=== PATIENT | male | born 1975 | race Caucasian/White ===

== ENCOUNTER 2016-11-25 21:54 | Emergency (ER) | payer OTHER ==
[~2016-11-25] VITALS: Ht 165.1 cm; Wt 113.5 kg
[2016-11-25 21:59] VITALS: TEMP 36.6; Ht 165.1 cm; Wt 113.5 kg
[2016-11-25] MEDS ORDERED: ALUMINUM/MAGNESIUM SUSP 30 ML UDC PO STA (22:10)
[2016-11-25] MEDS ORDERED: LIDOCAINE HCL 2% VISC SOLN 20 ML UDC PO STA (22:10)
--- NOTE | 2016-11-25 22:22 | DIAGNOSTIC IMAGING REPORT ---
SINGLE VIEW CHEST CLINICAL HISTORY: Atypical chest pain. FINDINGS: An AP, portable, upright chest radiograph is compared to study dated 12/06/2015. The examination is degraded by portable technique, large body habitus, and patient rotation. The heart is enlarged. The pulmonary vasculature is noncongested. The lungs and pleural spaces are clear. No pneumothorax is seen. The bony thorax is grossly intact. IMPRESSION: Cardiomegaly with no acute cardiopulmonary abnormality. Electronically signed by: Josse Fritz M.D. 11/25/2016 10:21 PM Dictated Date/Time: 11/25/2016 10:20 PM
[2016-11-25 22:48] LABS: BASO % 0.2 %; BASO ABS # 0.02 K/uL (0-0.2); COMPLETE YES; EOS % 1.1 %; HEMATOCRIT 42.8 % (42-52); IG% 0.5 %; LYMPH % 6.5 %; LYMPH ABS # 0.79 K/uL (1.2-3.4); MEAN CELL VOLUME 85.6 fL (80-100); MEAN CORPUSCULAR HEMOGLOBIN 30.4 pg (25-34); MEAN CORPUSCULAR HGB CONC 35.5 g/dl (32-36); MONO % 7.8 %; NEUT % 83.9 %; PLATELET COUNT 537 K/uL (130-400); WHITE BLOOD COUNT 12.15 K/uL (4.8-10.8)
--- NOTE | 2016-11-25 23:01 | DIAGNOSTIC IMAGING REPORT ---
ULTRASOUND RIGHT UPPER QUADRANT ABDOMEN CLINICAL HISTORY: Epigastric abdominal pain. COMPARISON STUDY: Abdominal CT dated 12/06/2015. TECHNIQUE: Real-time, grayscale, and color flow sonography of the right upper quadrant of the abdomen was performed. Images are reviewed in the transverse and longitudinal planes. The examination is degraded by large body habitus. FINDINGS: Liver: The liver is top normal in size and heterogeneous in echotexture. There is no intrahepatic biliary ductal dilatation. The main portal vein is patent. Gallbladder: The gallbladder is normal in appearance. No gallstones are identified. There is no gallbladder wall thickening or pericholecystic fluid. A sonographic Tinoco's sign is reportedly absent. The common bile duct measures up to 0.4 cm in diameter. Pancreas: Not well visualized due to overlying bowel gas. Right kidney: Survey images of the right kidney demonstrate normal size and echotexture. There is no hydronephrosis. Ascites: None. IMPRESSION: 1. No acute sonographic abnormality is identified in the right upper quadrant. No gallstones are seen. 2. The pancreas was not well visualized due to overlying bowel gas. Electronically signed by: Josse Fritz M.D. 11/25/2016 10:59 PM Dictated Date/Time: 11/25/2016 10:58 PM
[2016-11-25 23:04] VITALS: BP 121/74; PULSE 68; O2SAT 98
[2016-11-25 23:09] LABS: ALT/SGPT 61 U/L (12-78); AST/SGOT 18 U/L (15-37); BLOOD UREA NITROGEN 17 mg/dl (7-18); BUN/CREATININE RATIO 18.2 (10-20); CALCIUM 8.2 mg/dl (8.5-10.1); CARBON DIOXIDE 30 mmol/L (21-32); CHLORIDE 104 mmol/L (98-107); CREATININE 0.91 mg/dl (0.60-1.40); GLUCOSE 95 mg/dl (70-99); POTASSIUM 3.6 mmol/L (3.5-5.1); SODIUM 141 mmol/L (136-145)
[2016-11-25 23:14] LABS: ALKALINE PHOSPHATASE 65 U/L (45-117)
--- NOTE | 2016-11-25 23:19 | EMERGENCY ROOM VISIT NOTE ---
ED Visit Note First contact with patient: 22:01 I have seen and examined this patient with Ramona Motley and generally agree with the treatment plan as discussed. Problem List Medical Problems: (1) C. 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 Current/Historical Medications No Active Prescriptions or Reported Meds Allergies Coded Allergies: Penicillin V (Verified Allergy, Unknown, L, 05/10/16) Vital Signs Date Time Temp Pulse Resp B/P Pulse Ox O2 Delivery O2 Flow Rate FiO2 11/25/16 23:04 68 18 121/74 98 Room Air 11/25/16 22:15 74 11/25/16 21:59 36.6 82 18 154/92 99 Room Air Laboratory Results 11/25/16 22:26 Red Blood Count 5.00, Mean Corpuscular Volume 85.6, Mean Corpuscular Hemoglobin 30.4, Mean Corpuscular Hemoglobin Concent 35.5, Mean Platelet Volume 9.0, Neutrophils (%) (Auto) 83.9, Lymphocytes (%) (Auto) 6.5, Monocytes (%) (Auto) 7.8, Eosinophils (%) (Auto) 1.1, Basophils (%) (Auto) 0.2, Neutrophils # (Auto) 10.20, Lymphocytes # (Auto) 0.79, Monocytes # (Auto) 0.95, Eosinophils # (Auto) 0.13, Basophils # (Auto) 0.02 11/25/16 22:26 Test 11/25/16 22:26 White Blood Count 12.15 K/uL (4.8-10.8) Red Blood Count 5.00 M/uL (4.7-6.1) Hemoglobin 15.2 g/dL (14.0-18.0) Hematocrit 42.8 % (42-52) Mean Corpuscular Volume 85.6 fL (80-100) Mean Corpuscular Hemoglobin 30.4 pg (25-34) Mean Corpuscular Hemoglobin Concent 35.5 g/dl (32-36) Platelet Count 537 K/uL (130-400) Mean Platelet Volume 9.0 fL (7.4-10.4) Neutrophils (%) (Auto) 83.9 % Lymphocytes (%) (Auto) 6.5 % Monocytes (%) (Auto) 7.8 % Eosinophils (%) (Auto) 1.1 % Basophils (%) (Auto) 0.2 % Neutrophils # (Auto) 10.20 K/uL (1.4-6.5) Lymphocytes # (Auto) 0.79 K/uL (1.2-3.4) Monocytes # (Auto) 0.95 K/uL (0.11-0.59) Eosinophils # (Auto) 0.13 K/uL (0-0.5) Basophils # (Auto) 0.02 K/uL (0-0.2) RDW Standard Deviation 44.9 fL (36.4-46.3) RDW Coefficient of Variation 14.4 % (11.5-14.5) Immature Granulocyte % (Auto) 0.5 % Immature Granulocyte # (Auto) 0.06 K/uL (0.00-0.02) Anion Gap 7.0 mmol/L (3-11) Est Creatinine Clear Calc Drug Dose 125.6 ml/min Estimated GFR () 121.8 Estimated GFR (Non- 105.0 BUN/Creatinine Ratio 18.2 (10-20) Calcium Level 8.2 mg/dl (8.5-10.1) Total Bilirubin 1.0 mg/dl (0.2-1) Direct Bilirubin 0.2 mg/dl (0-0.2) Aspartate Amino Transf (AST/SGOT) 18 U/L (15-37) Alanine Aminotransferase (ALT/SGPT) 61 U/L (12-78) Alkaline Phosphatase 65 U/L (45-117) Troponin I < 0.015 ng/ml (0-0.045) Total Protein 7.5 gm/dl (6.4-8.2) Albumin 4.0 gm/dl (3.4-5.0) Lipase 130 U/L (73-393) Medications Administered Medications (Trade) Dose Ordered Sig/Melisa Route Start Time Stop Time Status Last Admin Dose Admin Lidocaine HCl (Viscous Lidocaine 2% Soln) 10 ml NOW STAT PO 11/25/16 22:10 11/25/16 22:11 DC 11/25/16 22:22 10 ML Al Hydroxide/Mg Hydroxide (Maalox Susp) 30 ml NOW STAT PO 11/25/16 22:10 11/25/16 22:11 DC 11/25/16 22:21 30 ML Departure Information Prescriptions No Active Prescriptions or Reported Meds Referrals Kelly Wallis M.D. (PCP) Patient Instructions [facility]
[2016-11-25] MEDS ORDERED: PANTOprazole SOD 40 MG TAB PO STA (23:27)
--- NOTE | 2016-11-25 23:27 | EMERGENCY ROOM VISIT NOTE ---
History First contact with patient: 22:01 Chief Complaint: CHEST PAIN Stated Complaint: CHEST PAIN Nursing Triage Summary: pain in lower abd History of Present Illness The patient is a 41 year old male who presents to the Emergency Room with complaints of right upper quadrant epigastric pain has been intermittent for the past day. He describes pain as discomfort, ranging in severity currently 3 out of 10. Nothing makes it better or worse. Patient denies chest pain, dyspnea, fever, chills, nausea, vomiting, diarrhea, back pain, urinary symptoms. He is tolerate by mouth fluids and food. Review of Systems See HPI for pertinent positives & negatives. A total of 10 systems reviewed and were otherwise negative. Past Medical/Surgical History Medical Problems: (1) C. difficile colitis (2) Clostridium difficile colitis (3) Partial deafness Family History Patient reports no known family medical history. Social History Smoking Status: Never Smoker Alcohol Use: none Drug Use: none Marital Status: single Housing Status: lives with family Occupation Status: unemployed Current/Historical Medications No Active Prescriptions or Reported Meds Allergies Coded Allergies: Penicillin V (Verified Allergy, Unknown, L, 05/10/16) Physical Exam Vital Signs Date Time Temp Pulse Resp B/P Pulse Ox O2 Delivery O2 Flow Rate FiO2 11/25/16 23:04 68 18 121/74 98 Room Air 11/25/16 22:15 74 11/25/16 21:59 36.6 82 18 154/92 99 Room Air Physical Exam VITALS: Vitals are noted on the nurse's note and reviewed by myself. Vital signs stable. GENERAL: Pleasant male, in no acute distress, nondiaphoretic, well-developed well-nourished. SKIN: The skin was without rashes, erythema, edema, or bruising. There is no tenting of the skin. Capillary reflex less than 2 seconds. HEAD: Normocephalic atraumatic. EARS: External auditory canals clear, tympanic membranes pearly wayne without erythema or effusion bilaterally. EYES: Pupils equal round and reactive to light and accommodation. Conjunctivae without injection, sclerae without icterus. Extraocular movements intact. NOSE: Patent, turbinates without inflammation or discharge. MOUTH: Mucous membranes moist. Pharynx without erythema or exudate. Uvula midline. Airway patent. Tongue does not deviate. NECK: Supple without nuchal rigidity. No lymphadenopathy. No thyromegaly. Cervical spine is nontender. No JVD. HEART: Regular rate and rhythm without murmurs gallops or rubs. LUNGS: Clear to auscultation bilaterally without wheezes, rales or rhonchi. No dullness to percussion. No retractions or accessory muscle use. ABDOMEN: Positive bowel sounds x 4. Normal tympanic percussion. Soft, protuberant, obese, minimally tender to palpation epigastric region, no CVA tenderness, without masses or organomegaly. Tinoco sign negative. No guarding or rebound tenderness. MUSCULOSKELETAL: No muscle atrophy, erythema, or edema noted. NEURO: Patient was alert and oriented to person place and time. Normal sensation to light and sharp touch. No focal neurological deficits. Medical Decision & Procedures Laboratory Results 11/25/16 22:26 Red Blood Count 5.00, Mean Corpuscular Volume 85.6, Mean Corpuscular Hemoglobin 30.4, Mean Corpuscular Hemoglobin Concent 35.5, Mean Platelet Volume 9.0, Neutrophils (%) (Auto) 83.9, Lymphocytes (%) (Auto) 6.5, Monocytes (%) (Auto) 7.8, Eosinophils (%) (Auto) 1.1, Basophils (%) (Auto) 0.2, Neutrophils # (Auto) 10.20, Lymphocytes # (Auto) 0.79, Monocytes # (Auto) 0.95, Eosinophils # (Auto) 0.13, Basophils # (Auto) 0.02 11/25/16 22:26 Test 11/25/16 22:26 White Blood Count 12.15 K/uL (4.8-10.8) Red Blood Count 5.00 M/uL (4.7-6.1) Hemoglobin 15.2 g/dL (14.0-18.0) Hematocrit 42.8 % (42-52) Mean Corpuscular Volume 85.6 fL (80-100) Mean Corpuscular Hemoglobin 30.4 pg (25-34) Mean Corpuscular Hemoglobin Concent 35.5 g/dl (32-36) Platelet Count 537 K/uL (130-400) Mean Platelet Volume 9.0 fL (7.4-10.4) Neutrophils (%) (Auto) 83.9 % Lymphocytes (%) (Auto) 6.5 % Monocytes (%) (Auto) 7.8 % Eosinophils (%) (Auto) 1.1 % Basophils (%) (Auto) 0.2 % Neutrophils # (Auto) 10.20 K/uL (1.4-6.5) Lymphocytes # (Auto) 0.79 K/uL (1.2-3.4) Monocytes # (Auto) 0.95 K/uL (0.11-0.59) Eosinophils # (Auto) 0.13 K/uL (0-0.5) Basophils # (Auto) 0.02 K/uL (0-0.2) RDW Standard Deviation 44.9 fL (36.4-46.3) RDW Coefficient of Variation 14.4 % (11.5-14.5) Immature Granulocyte % (Auto) 0.5 % Immature Granulocyte # (Auto) 0.06 K/uL (0.00-0.02) Anion Gap 7.0 mmol/L (3-11) Est Creatinine Clear Calc Drug Dose 125.6 ml/min Estimated GFR () 121.8 Estimated GFR (Non- 105.0 BUN/Creatinine Ratio 18.2 (10-20) Calcium Level 8.2 mg/dl (8.5-10.1) Total Bilirubin 1.0 mg/dl (0.2-1) Direct Bilirubin 0.2 mg/dl (0-0.2) Aspartate Amino Transf (AST/SGOT) 18 U/L (15-37) Alanine Aminotransferase (ALT/SGPT) 61 U/L (12-78) Alkaline Phosphatase 65 U/L (45-117) Troponin I < 0.015 ng/ml (0-0.045) Total Protein 7.5 gm/dl (6.4-8.2) Albumin 4.0 gm/dl (3.4-5.0) Lipase 130 U/L (73-393) Medications Administered Medications (Trade) Dose Ordered Sig/Melisa Route Start Time Stop Time Status Last Admin Dose Admin Lidocaine HCl (Viscous Lidocaine 2% Soln) 10 ml NOW STAT PO 11/25/16 22:10 11/25/16 22:11 DC 11/25/16 22:22 10 ML Al Hydroxide/Mg Hydroxide (Maalox Susp) 30 ml NOW STAT PO 11/25/16 22:10 11/25/16 22:11 DC 11/25/16 22:21 30 ML ED Course Prior records/ancillary studies reviewed. Triage Nursing notes reviewed. The patient's history was concerning for abdominal pain. Differential diagnosis: Etiologies such as appendicitis, diverticulitis, PUD, biliary pathology, UTI, pancreatitis, obstruction, mesenteric ischemia, aortic pathology, infections, inflammatory bowel disease, renal colic, as well as others were entertained. Physical examination findings: As above. ER treatment provided: GI cocktail, Protonix On reassessment the patient felt better. Diagnostics interpreted by me: ECG: Normal sinus, normal intervals, no acute ST-T wave changes. Impression normal sinus rhythm interpreted by myself The labs revealed a mild leukocytosis. Negative troponin Imaging studies: Ultrasound negative for cholecystitis based radiology. Chest x-ray no acute consolidation or pneumothorax per my interpretation Exam and history seem consistent with epigastric discomfort most likely from gastritis. Patient felt better after GI cocktail. He was advised to take Protonix daily for the next 2 weeks and to follow-up family care in a few days or here in the ER sooner for chest pain, difficulty breathing, abdominal pain, worsening signs or symptoms or as needed. Patient did not have an acute abdomen on exam. He is tolerating fluids. He is well-appearing. Unremarkable workup as above. By the evaluation outlined above emergent etiologies such as appendicitis, diverticulitis, PUD, biliary pathology, UTI, pancreatitis, obstruction, mesenteric ischemia, aortic pathology, infections, inflammatory bowel disease, renal colic, as well as others were deemed relatively unlikely. The pt informed about the findings as listed above. All questions were answered and pleased with the treatment. Return instructions were outlined and the patient was discharged in stable condition. Outpatient prescription management: protonix Referral: The patient was referred back to their primary care physician for follow-up in 2 to 3 days for a recheck of the current condition. case reviewed with my Attending Medical Decision As above Impression Primary Impression: Epigastric abdominal pain Departure Information Dispostion Home / Self-Care Condition GOOD Prescriptions No Active Prescriptions or Reported Meds Referrals Kelly Wallis M.D. (PCP) Patient Instructions My [facility] Additional Instructions Protonix 40 m tablet daily for next 2 weeks. Take this on an empty stomach. Try Maalox or Zantac for breakthrough symptoms for reflux. Avoid large meals. Avoid acidic foods. Rest and drink plenty of fluids as tolerated. Continue current medications. Avoid strenuous activities and anything that worsens your pain. Resume normal activities once your symptoms resolve. Return to the ER immediately for worsening or persistent chest pain, abdominal pain, black or blood in your stools, vomiting, fevers, chest pains, difficulty breathing, worsening of your condition, or as needed. Follow up with your primary physician in 2-3 days for a recheck of your current condition.
[2016-11-25] MEDS ORDERED: PANT40TA PO (23:28)
== END 2016-11-25 23:40 | disposition home or self-care (01) ==
LOC: C.EDB 21:56 → C.EDC 23:40
DX: R10.13 Epigastric pain (principal); Z86.19 Personal history of other infectious and parasitic diseases; Z88.0 Allergy status to penicillin

== ENCOUNTER 2017-02-22 19:45 | Emergency (ER) | payer OTHER ==
[~2017-02-22] VITALS: Ht 165.1 cm; Wt 107.7 kg
[2017-02-22 19:47] VITALS: TEMP 36.7; Ht 165.1 cm; Wt 107.7 kg
[2017-02-22] MEDS ORDERED: XYLOCAINE 1%/SOD BICARB 20 ML VIAL INFIL ONE (20:15)
[2017-02-22 21:20] VITALS: BP 135/77; PULSE 83; O2SAT 96
--- NOTE | 2017-02-23 00:52 | EMERGENCY ROOM VISIT NOTE ---
History First contact with patient: 20:04 Chief Complaint: INFECTION Stated Complaint: LUMP ON L ARM Nursing Triage Summary: pt c/o lump under left upper arm History of Present Illness The patient is a 41 year old male who presents to the Emergency Room with complaints of painful lump in his left armpit. The patient states this has increased in size over the past 2-3 days. He has not had fever or chills. No injury or trauma. He does not report a history of MRSA, but does have a past history of C. difficile. Review of Systems More than 10 systems were reviewed and otherwise negative with the exception of history of present illness. Past Medical/Surgical History Medical Problems: (1) C. difficile colitis (2) Clostridium difficile colitis (3) Partial deafness Family History Patient reports no known family medical history. Social History Smoking Status: Never Smoker Alcohol Use: none Drug Use: none Marital Status: single Housing Status: lives with family Occupation Status: unemployed Current/Historical Medications No Active Prescriptions or Reported Meds Allergies Coded Allergies: Penicillin V (Verified Allergy, Unknown, L, 02/22/17) Physical Exam Vital Signs Date Time Temp Pulse Resp B/P (MAP) Pulse Ox O2 Delivery O2 Flow Rate FiO2 02/22/17 21:20 83 135/77 96 02/22/17 19:47 36.7 81 18 135/86 97 Room Air Pain Rating (0-10): 0 Physical Exam VITALS: Vitals are noted on the nurse's note and reviewed by myself. Vital signs stable. GENERAL: Well-developed, well-nourished, white male, who is in no acute distress and resting comfortably. Patient is cooperative with the examination. HEAD: Normocephalic atraumatic. HEART: Regular rate and rhythm without murmurs gallops or rubs. LUNGS: Clear to auscultation bilaterally without wheezes, rales or rhonchi. No retractions or accessory muscle use. SKIN: The skin was with a 3.0 cm diameter abscess along the proximal medial left upper extremity. This is with central fluctuance Medical Decision & Procedures Procedure I examined the patient. Verbal consent was obtained to perform the procedure. After saline and Betadine cleansing and 3 mL of 1% buffered lidocaine anesthesia , the abscess was incised with a number 15 scalpel blade. A large amount of purulent material was released with more expressed by pressure. A swab was obtained for culture. The abscess cavity was further probed with a needle pharmacy delivery driver and the deep pocket expressed. The abscess cavity was then copiously irrigated with sterile saline under pressure. The area was then packed with bacitracin soaked packing. The area was cleaned with sterile saline and dressed with bacitracin and a bulky bandage. The patient tolerated the procedure well. ED Course Physical exam and history were performed. Nursing notes and EMR were reviewed. Patient appears to have an abscess in his left armpit. The abscess was incised and drained with culture sent to the lab. The patient has a history of C. difficile that required a significant hospitalization of 30 days. Because of this the patient is very hesitant to begin antibiotics. The incision and drainage should treat his infection, and I will have him return to the ER on a short interval for a recheck. The patient was certainly asked to return sooner if he has any worsening of his symptoms, and at that time we will consider antibiotics. The patient was pleased with this plan of voice understanding. He rated his discomfort a 0/10 at the time of departure. The chart was completed utilizing [employer] Speech Voice Recognition Software. Grammatical errors, random word insertions, pronoun errors, and incomplete sentences are an occasional consequence of this system due to software limitations, ambient noise, and hardware issues. Any formal questions or concerns about the content, text, or information contained within the body of this dictation should be directly addressed to the provider for clarification. . Medical Decision Differential diagnosis: Etiologies such as cellulitis, abscess, MRSA infection, DVT, necrotizing fasciitis, dermatitis, drug eruption, as well as others were entertained.. Impression Primary Impression: Abscess of axilla, left Departure Information Dispostion Home / Self-Care Condition GOOD Prescriptions No Active Prescriptions or Reported Meds Forms HOME CARE DOCUMENTATION FORM, IMPORTANT VISIT INFORMATION Patient Instructions My [facility] Additional Instructions You were seen and evaluated today on an emergency basis only. This is not a substitute for, or an effort to provide, complete comprehensive medical care. It is not possible to recognize and treat all injuries or illnesses in a single emergency department visit. For this reason it is recommended that you followup with Emergency Department in 48-72 hours for recheck of your condition. Try to leave your packing in place. Change your wound dressing 2-3 times a day. You are welcome to return to the emergency department anytime with new, worsening, or concerning symptoms.
== END 2017-02-22 21:20 | disposition home or self-care (01) ==
LOC: C.EDB 19:46 → C.EDD 21:20
DX: L02.412 Cutaneous abscess of left axilla (principal); A04.7 Enterocolitis due to Clostridium difficile; H91.90 Unspecified hearing loss, unspecified ear

== ENCOUNTER 2017-02-25 19:52 | Emergency (ER) | payer OTHER ==
[~2017-02-25] VITALS: Ht 165.1 cm; Wt 109.3 kg
[2017-02-25 19:56] VITALS: BP 145/97; PULSE 87; TEMP 36.5; O2SAT 96; Ht 165.1 cm; Wt 109.3 kg
--- NOTE | 2017-02-25 23:03 | EMERGENCY ROOM VISIT NOTE ---
History First contact with patient: 20:21 Chief Complaint: WOUND RECHECK Stated Complaint: WOUND RECHECK Nursing Triage Summary: PT here for recheck of I and D to abscess to left armpit. area healing well, no warmth noted. slight redness around incision, PT denies pain or fever. no drainage noted History of Present Illness The patient is a 41 year old male who presents to the Emergency Room for packing removal from an abscess in the left axilla. He was here 3 days ago. The patient reports improving redness and swelling. He denies any pain at the site of infection. The patient also complains of mild lower back pain for the past 3 weeks. The pain has been intermittent. It is worse with movement and lifting. The patient has not seen his family doctor for his back. He denies any recent falls or other trauma. Currently rates his back pain a 3 out of 10. Review of Systems 10 system review was performed and was negative except for pertinent positives and negatives as indicated in history of present illness Past Medical/Surgical History Medical Problems: (1) C. difficile colitis (2) Clostridium difficile colitis (3) Partial deafness Family History Patient reports no known family medical history. Social History Smoking Status: Never Smoker Alcohol Use: none Drug Use: none Marital Status: single Housing Status: lives with family Occupation Status: unemployed Current/Historical Medications No Active Prescriptions or Reported Meds Allergies Coded Allergies: Penicillin V (Verified Allergy, Unknown, L, 02/25/17) Physical Exam Vital Signs Date Time Temp Pulse Resp B/P (MAP) Pulse Ox O2 Delivery O2 Flow Rate FiO2 02/25/17 19:56 36.5 87 19 145/97 96 Room Air Physical Exam CONSTITUTIONAL: Healthy and well nourished. Alert and oriented X 3 with positive affect. She does not appear in any acute distress. HEENT: Normocephalic, atraumatic. Pupils equal, round and reactive. NECK: Full active range of motion without discomfort. ABDOMEN: No abdominal tenderness to palpation or CVA tenderness. MUSCULOSKELETAL: Examination does not show any focal tenderness to palpation through the central lumbar spine or paraspinous muscles. No obvious spasm. The patient does have mild discomfort with range of motion. No focal tenderness through the SI joints or sciatic notches. Negative logroll. Negative sitting straight leg raise. Ankle plantar/dorsiflexion strength is 5 out of 5 and symmetric bilaterally. Pedal pulses are intact. INTEGUMENTARY: Examination shows packing within a small left lateral axillary abscess. The packing was removed without any additional purulent drainage. There is no significant underlying induration. A Band-Aid was applied. NEUROLOGIC: No focal neurologic deficits noted. Lower extremities are sensory intact. Medical Decision & Procedures ED Course Patient history and physical exam were performed. Nurse's notes were reviewed. Packing removal was removed from the patient's abscess without any recurrent drainage. The patient was instructed to return for any progressively worsening infection. Regarding the patient's back, he was encouraged to follow-up with his family doctor for further reevaluation and management. Ibuprofen or Tylenol as needed for pain. The patient voiced understanding of all discharge instructions, was happy with plan of care, and denied any current pain at the time of discharge. Medical Decision Impression Primary Impression: Encounter for wound re-check Additional Impression: Lower back pain Departure Information Dispostion Home / Self-Care Prescriptions No Active Prescriptions or Reported Meds Forms HOME CARE DOCUMENTATION FORM, IMPORTANT VISIT INFORMATION Patient Instructions [facility] Additional Instructions Keep wound clean and covered with an antibiotic ointment and dressing until it heals. Follow-up with your family doctor for further evaluation of your back pain. Ibuprofen or Tylenol if needed for additional pain relief. Problem Qualifiers Additional Impression: Lower back pain Chronicity: acute Back pain laterality: unspecified Sciatica presence: with sciatica Sciatica laterality: sciatica laterality unspecified Qualified Codes: M54.40 - Lumbago with sciatica, unspecified side
== END 2017-02-25 20:35 | disposition home or self-care (01) ==
LOC: C.EDB 19:55 → C.EDD 20:35
DX: Z01.89 Encounter for other specified special examinations (principal); L02.412 Cutaneous abscess of left axilla; M54.5 Low back pain; H91.90 Unspecified hearing loss, unspecified ear

== ENCOUNTER 2017-06-08 00:09 | Emergency (ER) | payer OTHER ==
[~2017-06-08] VITALS: Ht 165.1 cm; Wt 107.7 kg
[2017-06-08 00:15] VITALS: Ht 165.1 cm; Wt 107.7 kg
[2017-06-08 00:50] LABS: BASO % 0.6 %; BASO ABS # 0.04 K/uL (0-0.2); COMPLETE YES; HEMATOCRIT 44.5 % (42-52); IG% 0.9 %; LYMPH % 25.4 %; LYMPH ABS # 1.72 K/uL (1.2-3.4); MEAN CELL VOLUME 85.7 fL (80-100); MEAN CORPUSCULAR HEMOGLOBIN 29.5 pg (25-34); MEAN CORPUSCULAR HGB CONC 34.4 g/dl (32-36); MEAN PLATELET VOLUME 8.7 fL (7.4-10.4); MONO % 9.6 %; NEUT % 62.5 %; PLATELET COUNT 446 K/uL (130-400); RED BLOOD COUNT 5.19 M/uL (4.7-6.1); WHITE BLOOD COUNT 6.76 K/uL (4.8-10.8)
[2017-06-08 01:08] LABS: ALT/SGPT 77 U/L (12-78); AST/SGOT 20 U/L (15-37); BLOOD UREA NITROGEN 15 mg/dl (7-18); BUN/CREATININE RATIO 15.2 (10-20); CALCIUM 8.5 mg/dl (8.5-10.1); CARBON DIOXIDE 26 mmol/L (21-32); CHLORIDE 102 mmol/L (98-107); CREATININE 0.98 mg/dl (0.60-1.40); GLUCOSE 84 mg/dl (70-99); POTASSIUM 3.3 mmol/L (3.5-5.1); SODIUM 137 mmol/L (136-145)
[2017-06-08 01:13] LABS: ALKALINE PHOSPHATASE 81 U/L (45-117)
[2017-06-08] MEDS ORDERED: POTASSIUM CHLORIDE 10 MEQ TABCR PO STA (01:45)
--- NOTE | 2017-06-08 01:45 | EMERGENCY ROOM VISIT NOTE ---
History First contact with patient: 00:19 Chief Complaint: BACK PAIN Stated Complaint: BACK AND SIDE PAIN History of Present Illness The patient is a 42 year old male who presents to the Emergency Room with complaints of right upper quadrant and flank pain for the past week that has been intermittent. Pain currently 5 out of 10. Palpation makes it worse and nothing makes it better. Patient denies chest pain, dyspnea, fever, chills, nausea, vomiting, diarrhea, cold symptoms. He is tolerating by mouth fluids and food. Review of Systems See HPI for pertinent positives & negatives. A total of 10 systems reviewed and were otherwise negative. Past Medical/Surgical History Medical Problems: (1) C. difficile colitis (2) Clostridium difficile colitis (3) Partial deafness Family History Patient reports no known family medical history. Social History Smoking Status: Never Smoker Alcohol Use: none Drug Use: none Marital Status: single Housing Status: lives with family Occupation Status: unemployed Current/Historical Medications No Active Prescriptions or Reported Meds Physical Exam Vital Signs Date Time Temp Pulse Resp B/P (MAP) Pulse Ox O2 Delivery O2 Flow Rate FiO2 06/08/17 01:44 61 18 105/69 98 Room Air 06/08/17 00:36 Room Air 06/08/17 00:15 36.5 69 18 139/88 100 Room Air Physical Exam VITALS: Vitals are noted on the nurse's note and reviewed by myself. Vital signs stable. GENERAL: Pleasant male, in no acute distress, nondiaphoretic, well-developed well-nourished. SKIN: The skin was without rashes, erythema, edema, or bruising. There is no tenting of the skin. Capillary reflex less than 2 seconds. HEAD: Normocephalic atraumatic. EARS: External auditory canals clear, tympanic membranes pearly wayne without erythema or effusion bilaterally. EYES: Pupils equal round and reactive to light and accommodation. Conjunctivae without injection, sclerae without icterus. Extraocular movements intact. NOSE: Patent, turbinates without inflammation or discharge. MOUTH: Mucous membranes moist. Pharynx without erythema or exudate. Uvula midline. Airway patent. Tongue does not deviate. NECK: Supple without nuchal rigidity. No lymphadenopathy. No thyromegaly. Cervical spine is nontender. No JVD. HEART: Regular rate and rhythm without murmurs gallops or rubs. LUNGS: Clear to auscultation bilaterally without wheezes, rales or rhonchi. No dullness to percussion. No retractions or accessory muscle use. ABDOMEN: Positive bowel sounds x 4. Normal tympanic percussion. Soft, tender to palpation right upper quadrant, no CVA tenderness, without masses or organomegaly. Tinoco sign negative. No guarding or rebound tenderness. MUSCULOSKELETAL: No muscle atrophy, erythema, or edema noted. NEURO: Patient was alert and oriented to person place and time. Normal sensation to light and sharp touch. No focal neurological deficits. Medical Decision & Procedures Laboratory Results 06/08/17 00:40 Red Blood Count 5.19, Mean Corpuscular Volume 85.7, Mean Corpuscular Hemoglobin 29.5, Mean Corpuscular Hemoglobin Concent 34.4, Mean Platelet Volume 8.7, Neutrophils (%) (Auto) 62.5, Lymphocytes (%) (Auto) 25.4, Monocytes (%) (Auto) 9.6, Eosinophils (%) (Auto) 1.0, Basophils (%) (Auto) 0.6, Neutrophils # (Auto) 4.22, Lymphocytes # (Auto) 1.72, Monocytes # (Auto) 0.65, Eosinophils # (Auto) 0.07, Basophils # (Auto) 0.04 06/08/17 00:40 Test 06/08/17 00:40 White Blood Count 6.76 K/uL (4.8-10.8) Red Blood Count 5.19 M/uL (4.7-6.1) Hemoglobin 15.3 g/dL (14.0-18.0) Hematocrit 44.5 % (42-52) Mean Corpuscular Volume 85.7 fL (80-100) Mean Corpuscular Hemoglobin 29.5 pg (25-34) Mean Corpuscular Hemoglobin Concent 34.4 g/dl (32-36) Platelet Count 446 K/uL (130-400) Mean Platelet Volume 8.7 fL (7.4-10.4) Neutrophils (%) (Auto) 62.5 % Lymphocytes (%) (Auto) 25.4 % Monocytes (%) (Auto) 9.6 % Eosinophils (%) (Auto) 1.0 % Basophils (%) (Auto) 0.6 % Neutrophils # (Auto) 4.22 K/uL (1.4-6.5) Lymphocytes # (Auto) 1.72 K/uL (1.2-3.4) Monocytes # (Auto) 0.65 K/uL (0.11-0.59) Eosinophils # (Auto) 0.07 K/uL (0-0.5) Basophils # (Auto) 0.04 K/uL (0-0.2) RDW Standard Deviation 44.6 fL (36.4-46.3) RDW Coefficient of Variation 14.2 % (11.5-14.5) Immature Granulocyte % (Auto) 0.9 % Immature Granulocyte # (Auto) 0.06 K/uL (0.00-0.02) Anion Gap 9.0 mmol/L (3-11) Est Creatinine Clear Calc Drug Dose 112.2 ml/min Estimated GFR () 110.5 Estimated GFR (Non- 95.4 BUN/Creatinine Ratio 15.2 (10-20) Calcium Level 8.5 mg/dl (8.5-10.1) Total Bilirubin 0.6 mg/dl (0.2-1) Direct Bilirubin 0.1 mg/dl (0-0.2) Aspartate Amino Transf (AST/SGOT) 20 U/L (15-37) Alanine Aminotransferase (ALT/SGPT) 77 U/L (12-78) Alkaline Phosphatase 81 U/L (45-117) Troponin I < 0.015 ng/ml (0-0.045) Total Protein 8.2 gm/dl (6.4-8.2) Albumin 4.2 gm/dl (3.4-5.0) Lipase 157 U/L (73-393) ED Course Prior records/ancillary studies reviewed. Triage Nursing notes reviewed. The patient's history was concerning for abdominal pain. Differential diagnosis: Etiologies such as appendicitis, diverticulitis, PUD, biliary pathology, UTI, pancreatitis, obstruction, mesenteric ischemia, aortic pathology, infections, inflammatory bowel disease, renal colic, as well as others were entertained. Physical examination findings: As above. ER treatment provided: By mouth fluids On reassessment the patient felt better. Diagnostics interpreted by me: ECG: Normal sinus, normal intervals, no acute ST-T wave changes. Impression normal sinus rhythm interpreted by myself The labs revealed stable H&H, no leukocytosis. Negative troponin Imaging studies: Ultrasound negative for cholecystitis per radiology Exam and history seem consistent with abdominal pain that could be related to his gallbladder. Patient was neurovascular and neurologically intact. Unremarkable workup as above. He was advised to low-fat diet and follow-up family care in a few days or here in the ER sooner for abdominal pain, fevers, vomiting, worsening signs or symptoms or as needed. By the evaluation outlined above emergent etiologies such as appendicitis, diverticulitis, PUD, UTI, pancreatitis, obstruction, mesenteric ischemia, aortic pathology, infections, inflammatory bowel disease, renal colic, as well as others were deemed relatively unlikely. The pt informed about the findings as listed above. All questions were answered and pleased with the treatment. Return instructions were outlined and the patient was discharged in stable condition. Case reviewed with my attending Referral: The patient was referred back to their primary care physician for follow-up in 2 to 3 days for a recheck of the current condition. Medical Decision As above Medication Reconcilliation Current Medication List: was personally reviewed by me Blood Pressure Screening Patient's blood pressure: Normal blood pressure Impression Primary Impression: Right upper quadrant abdominal pain Additional Impression: Hypokalemia Departure Information Dispostion Home / Self-Care Condition GOOD Prescriptions No Active Prescriptions or Reported Meds Referrals Kelly Wallis M.D. (PCP) Patient Instructions My [facility] Additional Instructions Ibuprofen(Motrin, Advil) may be used for fever or pain. Use 600mg every six hours as needed. Take with food. Avoid using more than 2400mg in a 24 hour period. Do not use 2400mg per day for more than three consecutive days without physician direction. Prolonged inappropriate use can lead to stomach upset or ulcers. (AND/OR) Acetaminophen(Tylenol) may be used for fever or pain. Use 1000mg every six hours as needed. Avoid using more than 3000mg in a 24 hour period. Recommend outpatient HIDA scan with family care DrRon for further workup on your gallbladder. Rest and drink plenty of fluids as tolerated. Slow sips of water or sports drinks are recommended instead of large amounts all at once. Recommend low-fat diet. Continue current medications. Return to the ER immediately for worsening or persistent abdominal pain, vomiting, fevers, chest pains, difficulty breathing, black or bloody stools, worsening of your condition, or as needed. Follow up with your primary physician in 24 hours for a recheck of your current condition. Problem Qualifiers
[2017-06-08 01:56] VITALS: BP 105/69; PULSE 61; TEMP 36.5; O2SAT 98
--- NOTE | 2017-06-08 07:00 | EMERGENCY ROOM VISIT NOTE ---
ED Visit Note First contact with patient: 00:19 I have personally evaluated and examined this patient. I agree with assessment and plan of Ramona Motley PA-C. Patient with vague RUQ abdominal pain which is completely benign by exam and he admits ongoing for quite some time. Discussed need to talk to his doctor about this but with normal labs/us I feel it is reasonable for discharge, especially given ongoing for some time.
--- NOTE | 2017-06-08 07:51 | DIAGNOSTIC IMAGING REPORT ---
GALLBLADDER-ABD LIMITED CLINICAL HISTORY: rug pain pain. Nausea. TECHNIQUE: Ultrasound COMPARISON STUDY: 11/25/2016 FINDINGS: Heterogeneous liver suggesting fatty infiltration. Normal gallbladder. Poor visibility of the pancreas normal caliber bile duct. Common bile duct 3 mm. Right kidney is negative for hydronephrosis. IMPRESSION: Fatty infiltration of liver. Otherwise negative study. The above report was generated using voice recognition software. It may contain grammatical, syntax or spelling errors. Electronically signed by: Rohan Patton M.D. 06/08/2017 7:49 AM Dictated Date/Time: 06/08/2017 7:47 AM
== END 2017-06-08 01:56 | disposition home or self-care (01) ==
LOC: C.EDB 00:10 → C.EDC 01:56
DX: R10.11 Right upper quadrant pain (principal); M54.9 Dorsalgia, unspecified; E87.6 Hypokalemia; H91.90 Unspecified hearing loss, unspecified ear

== ENCOUNTER 2017-06-21 16:33 | Emergency (ER) | payer OTHER ==
[~2017-06-21] VITALS: Ht 165.1 cm; Wt 109.4 kg
[2017-06-21 16:39] VITALS: TEMP 36.5; Ht 165.1 cm; Wt 109.4 kg
--- NOTE | 2017-06-21 16:58 | EMERGENCY ROOM VISIT NOTE ---
History Report prepared by Lisseth: Jared Aceves Under the Supervision of: Adria CourtneyO. First contact with patient: 16:46 Chief Complaint: ABDOMINAL PAIN Stated Complaint: PAINS IN L SIDE BACK TO STOMACH GALL BLADDER History of Present Illness The patient is a 42 year old male who presents to the Emergency Room with complaints of intermittent right-sided abdominal pain that began 1 month ago. He received a workup at this hospital on the 08 of June with negative findings. He followed up with his PCP, but his pain has been worsening, so he presented back to the ER. He is also having back pain and pain to his right side as well. He denies any past medical history or any family history of kidney stones. He denies any nausea, vomiting, melena, hematochezia, or abnormal urinary symptoms. Sleeping on his left side makes his pain better. However, nothing makes it worse. He notes that recently he has been experiencing chills and hot flashes, without any fevers. He denies any history of ulcers, reflux, or any other GI problems. He does note that he had C. Diff in the past. Source of History: patient Onset: 1 month ago Position: abdomen (RUQ) Symptom Intensity: moderate Quality: sharp Timing: intermittent Modifying Factors (Relieving): rest (on left side) Associated Symptoms: + back pain, No nausea, No vomiting, No melena, No hematochezia, No diarrhea, No urinary symptoms Review of Systems See HPI for pertinent positives & negatives. A total of 10 systems reviewed and were otherwise negative. Past Medical & Surgical Medical Problems: (1) C. difficile colitis (2) Clostridium difficile colitis (3) Partial deafness Family History Patient reports no known family medical history. Social History Smoking Status: Never Smoker Alcohol Use: none Drug Use: none Marital Status: single Housing Status: lives with family Occupation Status: unemployed Current/Historical Medications No Active Prescriptions or Reported Meds Allergies Coded Allergies: Penicillin V (Verified Allergy, Unknown, L, 06/08/17) Uncoded Allergies: ANTIBIOTIC (Allergy, Unknown, UNKNOWN, 06/21/17) PT FAMILY SAID HE CAN'T TAKE ANTIBIOTIC BECAUSE HE HAS C. DIFF Physical Exam Vital Signs Date Time Temp Pulse Resp B/P (MAP) Pulse Ox O2 Delivery O2 Flow Rate FiO2 06/21/17 21:00 60 20 110/71 99 Room Air 06/21/17 19:39 60 20 125/76 100 Room Air 06/21/17 16:39 36.5 68 18 127/84 100 Room Air Physical Exam GENERAL: alert, well appearing, well nourished, no distress, non-toxic. Developmental delay with a child-like affect. EYE EXAM: normal conjunctiva OROPHARYNX: no exudate, no erythema, lips, buccal mucosa, and tongue normal and mucous membranes are moist NECK: supple, no nuchal rigidity, no adenopathy, non-tender LUNGS: Clear to auscultation. Normal chest wall mechanics HEART: no murmurs, S1 normal and S2 normal ABDOMEN: abdomen soft, central and right sided tenderness to palpation, normo- active bowel sounds, no masses, no rebound or guarding. BACK: Back is symmetrical on inspection and there is no deformity, no midline tenderness, no CVA tenderness. Pain to the right mid back. SKIN: no rashes and no bruising UPPER EXTREMITIES: upper extremities are grossly normal. LOWER EXTREMITIES: No pitting edema. NEURO EXAM: Normal sensorium, cranial nerves II-XII grossly intact, normal speech, no gross weakness of arms, no gross weakness of legs. Medical Decision & Procedures ER Provider Diagnostic Interpretation: Radiology results have been interpreted by the radiologist and reviewed by me. ULTRASOUND RIGHT UPPER QUADRANT ABDOMEN CLINICAL HISTORY: Right upper quadrant abdominal pain. COMPARISON STUDY: Abdominal ultrasound dated 06/08/2017. Abdominal CT dated 12/06/2015. TECHNIQUE: Real-time, grayscale, and color flow sonography of the right upper quadrant of the abdomen was performed. Images are reviewed in the transverse and longitudinal planes. FINDINGS: Liver: The liver is mildly enlarged measuring 18.5 cm in length. The liver demonstrates heterogeneously increased echotexture consistent with steatosis. Mild nodularity of the surface contour suggests early change of cirrhosis. There is no intrahepatic biliary ductal dilatation. The main portal vein is patent. Gallbladder: The gallbladder is contracted and otherwise normal in appearance. No gallstones are identified. There is no gallbladder wall thickening or pericholecystic fluid. A sonographic Tinoco's sign is reportedly absent. The common bile duct measures up to 0.6 cm in diameter. Pancreas: Visualized portions of the pancreatic head and body are normal in appearance. The splenic vein is patent. Right kidney: Survey images of the right kidney demonstrate normal size and echotexture. There is no hydronephrosis. Ascites: None. IMPRESSION: 1. No acute sonographic abnormality is identified in the right upper quadrant. No gallstones are seen. 2. The liver is enlarged and steatotic. 3. Mild nodularity of the hepatic surface contour suggests early change of cirrhosis. Electronically signed by: Josse Fritz M.D. 06/21/2017 8:27 PM Dictated Date/Time: 06/21/2017 8:24 PM Laboratory Results 06/21/17 17:10 Red Blood Count 5.15, Mean Corpuscular Volume 87.4, Mean Corpuscular Hemoglobin 29.1, Mean Corpuscular Hemoglobin Concent 33.3, Mean Platelet Volume 9.2, Neutrophils (%) (Auto) 68.8, Lymphocytes (%) (Auto) 18.6, Monocytes (%) (Auto) 9.5, Eosinophils (%) (Auto) 0.9, Basophils (%) (Auto) 0.6, Neutrophils # (Auto) 4.76, Lymphocytes # (Auto) 1.29, Monocytes # (Auto) 0.66, Eosinophils # (Auto) 0.06, Basophils # (Auto) 0.04 06/21/17 17:10 Test 06/21/17 17:10 06/21/17 18:00 White Blood Count 6.92 K/uL (4.8-10.8) Red Blood Count 5.15 M/uL (4.7-6.1) Hemoglobin 15.0 g/dL (14.0-18.0) Hematocrit 45.0 % (42-52) Mean Corpuscular Volume 87.4 fL (80-100) Mean Corpuscular Hemoglobin 29.1 pg (25-34) Mean Corpuscular Hemoglobin Concent 33.3 g/dl (32-36) Platelet Count 535 K/uL (130-400) Mean Platelet Volume 9.2 fL (7.4-10.4) Neutrophils (%) (Auto) 68.8 % Lymphocytes (%) (Auto) 18.6 % Monocytes (%) (Auto) 9.5 % Eosinophils (%) (Auto) 0.9 % Basophils (%) (Auto) 0.6 % Neutrophils # (Auto) 4.76 K/uL (1.4-6.5) Lymphocytes # (Auto) 1.29 K/uL (1.2-3.4) Monocytes # (Auto) 0.66 K/uL (0.11-0.59) Eosinophils # (Auto) 0.06 K/uL (0-0.5) Basophils # (Auto) 0.04 K/uL (0-0.2) RDW Standard Deviation 45.9 fL (36.4-46.3) RDW Coefficient of Variation 14.3 % (11.5-14.5) Immature Granulocyte % (Auto) 1.6 % Immature Granulocyte # (Auto) 0.11 K/uL (0.00-0.02) Anion Gap 6.0 mmol/L (3-11) Est Creatinine Clear Calc Drug Dose 121.9 ml/min Estimated GFR () 120.9 Estimated GFR (Non- 104.3 BUN/Creatinine Ratio 19.8 (10-20) Lactic Acid Level 0.8 mmol/L (0.4-2.0) Calcium Level 8.6 mg/dl (8.5-10.1) Total Bilirubin 0.4 mg/dl (0.2-1) Aspartate Amino Transf (AST/SGOT) 43 U/L (15-37) Alanine Aminotransferase (ALT/SGPT) 109 U/L (12-78) Alkaline Phosphatase 115 U/L (45-117) Troponin I < 0.015 ng/ml (0-0.045) Total Protein 8.0 gm/dl (6.4-8.2) Albumin 3.8 gm/dl (3.4-5.0) Globulin 4.2 gm/dl (2.5-4.0) Albumin/Globulin Ratio 0.9 (0.9-2) Lipase 344 U/L (73-393) Urine Color YELLOW Urine Appearance CLEAR (CLEAR) Urine pH 8.0 (4.5-7.5) Urine Specific [place] 1.020 (1.000-1.030) Urine Protein NEG (NEG) Urine Glucose (UA) NEG (NEG) Urine Ketones NEG (NEG) Urine Occult Blood NEG (NEG) Urine Nitrite NEG (NEG) Urine Bilirubin NEG (NEG) Urine Urobilinogen NEG (NEG) Urine Leukocyte Esterase NEG (NEG) Laboratory results per my review. Medications Administered Medications (Trade) Dose Ordered Sig/Melisa Route Start Time Stop Time Status Last Admin Dose Admin Tramadol HCl (Ultram Home Pack) 1 homepack UD ONCE PO 06/21/17 21:15 06/21/17 21:16 DC 06/21/17 21:19 1 HOMEPACK ECG Indication: abdominal pain Rate (beats per minute): 57 Rhythm: sinus bradycardia Findings: no acute ischemic change, no ectopy, other (Normal intervals, normal axis) ED Course 1645: The patient was evaluated in room B9. A complete history and physical exam was performed. 2034: I updated the patient on his results. The repeat abdominal exam was unchanged. 2114: Tramadol HCl 1 homepack PO 2129: Upon reevaluation, the patient is feeling better. I discussed the findings and the treatment plan with the patient. He verbalizes agreement and understanding. He was discharged home. Medical Decision Differential diagnoses includes but is not limited to gastritis, peptic ulcer disease, GERD, gallbladder disease, pancreatitis, small bowel obstruction, acute coronary syndrome, pericarditis, ischemic bowel, irritable bowel disease, irritable bowel syndrome, appendicitis, diverticulitis, malignancy, hernia, urinary tract infection, torsion, perforation, trauma, infectious. Discussed with patient possibly biliary colic versus other GI etiology including gastritis/peptic ulcer disease/duodenitis. Doubt perforation, mesenteric ischemia, bowel obstruction, volvulus. Mild elevation of transaminases compared to prior. No evidence of bacteremia/sepsis, doubt ascending cholangitis, no evidence of acute obstructive pathology. Doubt renal colic, pyelonephritis. Patient well-appearing here with stable vital signs. He and family at bedside aware of all results and agreeable with plan. Patient to continue outpatient nuclear testing as previously scheduled. Discussed diet , hydration, use of pain medications, symptoms to watch and return for, they verbalized understanding and were agreeable with plan. Medication Reconcilliation Current Medication List: was personally reviewed by me Blood Pressure Screening Patient's blood pressure: Normal blood pressure Blood pressure disposition: Did not require urgent referral Impression Primary Impression: Abdominal pain Additional Impression: Elevated transaminase level Scribe Attestation The scribe's documentation has been prepared under my direction and personally reviewed by me in its entirety. I confirm that the note above accurately reflects all work, treatment, procedures, and medical decision making performed by me. Departure Information Dispostion Home / Self-Care Prescriptions No Active Prescriptions or Reported Meds Referrals Kelly Wallis M.D. (PCP) Forms Call Back Authorization, HOME CARE DOCUMENTATION FORM, IMPORTANT VISIT INFORMATION Patient Instructions Abdominal Pain - [facility], My [facility] Additional Instructions Please keep your appointment to have your additional gallbladder testing done as scheduled. Please avoid any fried or fatty foods in the meantime as this can trigger a gallbladder attack. If you develop any worsening pain, vomiting, fevers, noticed a change in your bowel movements, develop chest pain or trouble breathing, noticed a change in your urine, or you have any other new concerns, please return to the emergency room. You may use the pain medication as provided, do not take it and drive. Problem Qualifiers Primary Impression: Abdominal pain Abdominal location: right upper quadrant Qualified Codes: R10.11 - Right upper quadrant pain
[2017-06-21 17:26] LABS: BASO % 0.6 %; BASO ABS # 0.04 K/uL (0-0.2); COMPLETE YES; EOS % 0.9 %; IG% 1.6 %; LYMPH % 18.6 %; LYMPH ABS # 1.29 K/uL (1.2-3.4); MEAN CELL VOLUME 87.4 fL (80-100); MEAN CORPUSCULAR HEMOGLOBIN 29.1 pg (25-34); MEAN CORPUSCULAR HGB CONC 33.3 g/dl (32-36); MEAN PLATELET VOLUME 9.2 fL (7.4-10.4); MONO % 9.5 %; NEUT % 68.8 %; PLATELET COUNT 535 K/uL (130-400); RED BLOOD COUNT 5.15 M/uL (4.7-6.1); WHITE BLOOD COUNT 6.92 K/uL (4.8-10.8)
[2017-06-21 17:46] LABS: ALT/SGPT 109 U/L (12-78); AST/SGOT 43 U/L (15-37); BLOOD UREA NITROGEN 18 mg/dl (7-18); BUN/CREATININE RATIO 19.8 (10-20); CALCIUM 8.6 mg/dl (8.5-10.1); CARBON DIOXIDE 27 mmol/L (21-32); CHLORIDE 105 mmol/L (98-107); CREATININE 0.91 mg/dl (0.60-1.40); GLUCOSE 93 mg/dl (70-99); POTASSIUM 3.8 mmol/L (3.5-5.1); SODIUM 138 mmol/L (136-145)
[2017-06-21 17:51] LABS: ALB/GLOB RATIO 0.9 (0.9-2); ALKALINE PHOSPHATASE 115 U/L (45-117)
[2017-06-21 18:45] LABS: URINE APPEARANCE CLEAR (CLEAR); URINE BILIRUBIN NEG (NEG); URINE COLOR YELLOW; URINE NITRITE NEG (NEG); UROBILINOGEN NEG (NEG); ZZUR CULT IF INDIC CLEAN CATCH NO
[2017-06-21 18:47] LABS: MANUAL MICROSCOPIC REQUIRED? NO; REVIEW REQ? NO
--- NOTE | 2017-06-21 20:28 | DIAGNOSTIC IMAGING REPORT ---
ULTRASOUND RIGHT UPPER QUADRANT ABDOMEN CLINICAL HISTORY: Right upper quadrant abdominal pain. COMPARISON STUDY: Abdominal ultrasound dated 06/08/2017. Abdominal CT dated 12/06/2015. TECHNIQUE: Real-time, grayscale, and color flow sonography of the right upper quadrant of the abdomen was performed. Images are reviewed in the transverse and longitudinal planes. FINDINGS: Liver: The liver is mildly enlarged measuring 18.5 cm in length. The liver demonstrates heterogeneously increased echotexture consistent with steatosis. Mild nodularity of the surface contour suggests early change of cirrhosis. There is no intrahepatic biliary ductal dilatation. The main portal vein is patent. Gallbladder: The gallbladder is contracted and otherwise normal in appearance. No gallstones are identified. There is no gallbladder wall thickening or pericholecystic fluid. A sonographic Tinoco's sign is reportedly absent. The common bile duct measures up to 0.6 cm in diameter. Pancreas: Visualized portions of the pancreatic head and body are normal in appearance. The splenic vein is patent. Right kidney: Survey images of the right kidney demonstrate normal size and echotexture. There is no hydronephrosis. Ascites: None. IMPRESSION: 1. No acute sonographic abnormality is identified in the right upper quadrant. No gallstones are seen. 2. The liver is enlarged and steatotic. 3. Mild nodularity of the hepatic surface contour suggests early change of cirrhosis. Electronically signed by: Josse Fritz M.D. 06/21/2017 8:27 PM Dictated Date/Time: 06/21/2017 8:24 PM
[2017-06-21 21:00] VITALS: BP 110/71; PULSE 60; O2SAT 99
[2017-06-21] MEDS ORDERED: TRAMADOL HCL 50 MG HOME PACK PO ONE (21:15)
== END 2017-06-21 21:23 | disposition home or self-care (01) ==
LOC: C.EDB 16:34
DX: R10.9 Unspecified abdominal pain (principal); R74.0 Nonspecific elevation of levels of transaminase and lactic acid dehydrogenase [LDH]; R00.1 Bradycardia, unspecified; Z86.19 Personal history of other infectious and parasitic diseases; Z88.0 Allergy status to penicillin

== ENCOUNTER → 2017-06-27 | Outpatient (CLI) | payer OTHER ==
[~2017-06-27] MED LIST: SINCALIDE IV ONE; SODIUM CHLORIDE 0.9% IV ONE
--- NOTE | 2017-06-27 12:37 | DIAGNOSTIC IMAGING REPORT ---
NUCLEAR MEDICINE HEPATOBILIARY SCAN WITH EJECTION FRACTION HISTORY: Right upper quadrant PAIN; WORSE WITH EATING COMPARISON: Abdominal ultrasound 06/21/2017. TECHNIQUE: Immediately following the intravenous administration of 5.8 mCi Tc-99m Choletec, dynamic anterior abdominal imaging pre/post 2.15 mcg of Kinevac was performed. FINDINGS: Uniform hepatic tracer accumulation is shown. Prompt intrahepatic biliary excretion is seen. The gallbladder, common bile duct are visualized at 20 minutes. Slight delayed visualization of the small bowel at 70 minutes. However, this could be a normal variant. The gall bladder ejection fraction following administration of Kinevac was 90% (normal >35%). IMPRESSION: 1. No evidence for cystic duct obstruction. 2. Gallbladder ejection fraction calculated to be 90 %. Electronically signed by: Aarno Hinton M.D. 06/27/2017 12:36 PM Dictated Date/Time: 06/27/2017 12:34 PM
== END | disposition home or self-care (01) ==
LOC: C.NUCL 09:39
PROVIDERS: ATTEND Family Medicine
DX: R10.11 Right upper quadrant pain (principal)

== ENCOUNTER → 2017-07-27 | Outpatient (CLI) | payer OTHER ==
[2017-07-27 15:08] LABS: TOTAL IRON BINDING CAPACITY 368 mcg/dl (250-450)
[2017-07-31 14:24] LABS: ALPHA-1-ANTITRYPSIN TC 67710E 130 MG/DL (83-199)
== END | disposition home or self-care (01) ==
LOC: C.LAB 13:04
PROVIDERS: ATTEND Internal Medicine Gastroenterology
DX: K74.0 Hepatic fibrosis (principal)

== ENCOUNTER → 2017-08-03 | Day surgery (SDC) | payer OTHER ==
[2017-07-31 14:46] VITALS: Ht 165.1 cm; Wt 109.1 kg
[~2017-08-03] VITALS: Ht 165.1 cm; Wt 109.1 kg
[~2017-08-03] MED LIST changes: +ACET-1256 PO; +LIDOCAINE HCL 2% 2 ML VIAL (20MG/ML) ONE; +MIDAZOLAM HCL 1 MG/ML 2ML VIAL ONE; +NAPR1TAB9 PO; +OMEP20CA59 PO; +ONDANSETRON INJ 2 MG/ML 2 ML VIAL ONE; +PROPOFOL IV EMULSION 10 MG/ML 20 ML VIAL IV ONE; +RANI150T3 PO; -SINCALIDE IV ONE; +SODIUM CHLORIDE 0.9% 500ML 500 ML IV ONE; -SODIUM CHLORIDE 0.9% IV ONE
[2017-08-03 13:14] VITALS: TEMP 36.6
--- NOTE | 2017-08-03 14:03 | Endo History and Physical ---
History & Physical Date of Service: Aug 03, 2017. Chief Complaint: RUQ pian Referring Physician: Dr. Kelly Wallis History of Present Illness RUQ pain Past Surgical History Hx Cardiac Surgery: No Hx Internal Defibrillator: No Hx Pacemaker: No Hx Abdominal Surgery: No Hx of Implantable Prosthesis: No Hx Post-Op Nausea and Vomiting: No Hx Cancer Surgery: No Hx Thoracic Surgery: No Hx Orthopedic: No Hx Urinary Tract Surgery: No Family History None Social History Smoking Status: Never Smoker Hx Substance Use: No Hx Alcohol Use: No Allergies Coded Allergies: Penicillin V (Verified Allergy, Unknown, RASH, 07/31/17) Uncoded Allergies: ANTIBIOTIC (Allergy, Unknown, C-DIFF, 07/31/17) Current Medications Reported Home Medications Medications Dose Route/Sig Max Daily Dose Days Date Category No Active Prescriptions or Reported Medications Rx Vital Signs Weight (Kilograms): 109.09 Height (Feet): 5 Height (Inches): 5 Date Time Temp Pulse Resp B/P (MAP) Pulse Ox O2 Delivery O2 Flow Rate FiO2 08/03/17 13:14 36.6 55 20 121/73 (89) 98 Room Air Physical Exam General Appearance: WD/WN, no apparent distress Respiratory/Chest: Auscultation: breath sounds normal Cardiovascular: Heart Auscultation: RRR Abdomen: Bowel Sounds: normal Inspection & Palpation: soft, non-distended, no tenderness, guarding & rebound Assessment and Plan EGD today
--- NOTE | 2017-08-03 14:35 | GI REPORT ---
Procedure Date: 08/03/2017 2:02 PM Procedure: Upper GI endoscopy Indications: Abdominal pain in the right upper quadrant Medicines: Propofol per Anesthesia Complications: No immediate complications. Estimated blood loss: None. Estimated Blood Loss: Estimated blood loss: none. Procedure: Pre-Anesthesia Assessment: - Prior to the procedure, a History and Physical was performed, and patient medications and allergies were reviewed. The patient's tolerance of previous anesthesia was also reviewed. The risks and benefits of the procedure and the sedation options and risks were discussed with the patient. All questions were answered, and informed consent was obtained. Prior Anticoagulants: The patient has taken no previous anticoagulant or antiplatelet agents. ASA Grade Assessment: II - A patient with mild systemic disease. After reviewing the risks and benefits, the patient was deemed in satisfactory condition to undergo the procedure. After obtaining informed consent, the endoscope was passed under direct vision. Throughout the procedure, the patient's blood pressure, pulse, and oxygen saturations were monitored continuously. The scope was introduced through the mouth, and advanced to the second part of duodenum. The upper GI endoscopy was accomplished without difficulty. The patient tolerated the procedure well. Findings: The examined esophagus was normal. A 1 cm hiatus hernia was found. The proximal extent of the gastric folds (end of tubular esophagus) was 43 cm from the incisors. The hiatal narrowing was 44 cm from the incisors. The Z-line was 43 cm from the incisors. The entire examined stomach was normal. The examined duodenum was normal. Retained gastric contents are not identified on this exam. The cardia and gastric fundus were normal on retroflexion. Impression: - Normal esophagus. - 1 cm hiatus hernia. - Normal stomach. - Normal examined duodenum. - No specimens collected. Recommendation: - Discharge patient to home (ambulatory). - Resume regular diet. - Continue present medications. - Return to GI clinic as previously scheduled. - Return to referring physician as previously scheduled. MD Aditya Whittington MD 08/03/2017 2:35:05 PM This report has been signed electronically. Note Initiated On: 08/03/2017 2:02 PM I attest to the content of the Intraoperative Record and orders documented therein, exceptions below
--- NOTE | 2017-08-03 14:38 | Discharge Instructions ---
Endoscopy Patient Instructions Date / Procedure(s) Performed Aug 03, 2017. EGD Allergy Information Coded Allergies: Penicillin V (Verified Allergy, Unknown, RASH, 07/31/17) Uncoded Allergies: ANTIBIOTIC (Allergy, Unknown, C-DIFF, 07/31/17) Discharge Date / Findings Aug 03, 2017. HH otherwise normal Medication Instructions Restart Stopped Medication(s): Reported Home Medications Medications Dose Route/Sig Max Daily Dose Days Date Category No Active Prescriptions or Reported Medications Rx Reported Home Medications Medications Dose Route/Sig Max Daily Dose Days Date Category No Active Prescriptions or Reported Medications Rx Provider Instructions Activity Restrictions - No exercising or heavy lifting for 24 hours. - Do not drink alcohol the day of the procedure. - Do not drive a car or operate machinery until the day after the procedure. - Do not make any important decisions or sign important papers in 24 hours after the procedure. Following Day: - Return to full activity which may include returning to work/school. Diet Start your diet with liquids and light foods (jello, soup, juice, toast). Then eat your usual diet if not nauseated. Treatment For Common After Affects For mild abdominal pain, bloating, or excessive gas: - Rest - Eat lightly - Lie on right side Follow-Up Information Follow-up with Dr. Kelly Wallis as scheduled Anesthesia Information What You Should Know You have had a procedure that required some medicine to reduce anxiety and discomfort. This treatment is called moderate sedation. After receiving the treatment, you may be sleepy, but you will be able to breathe on your own. The effects of the treatment may last for several hours. Follow these instructions along with Activity/Diet recommendations noted above: * Do NOT do anything where dizziness or clumsiness would be dangerous. * Rest quietly at home today, then you can be up and about tomorrow. * Have a responsible person stay with you the rest of today. * You may have had an I.V. today. If so, you may take the dressing off later today. Recommendations Call your doctor if: * Trouble breathing * Continuous vomiting for more than 24 hours * Temperature above 101 degrees * Severe abdominal pain or bloating * Pain not relieved by pain medicine ordered * There is increased drainage or redness from any incision * A large amount of rectal bleeding greater than 2-3 tablespoons. (If you had a polyp/s removed or have hemorrhoids, a small amount of blood - from the rectum is to be expected.) * You have any unanswered questions or concerns. IN THE EVENT OF A SERIOUS EMERGENCY, GO TO THE NEAREST EMERGENCY ROOM Your discharge instructions were prepared by provider Aditya Del Toro. Patient Instructions Signature Page Randy Snow Patient (or Guardian) Signature/Date: I have read and understand the instructions given to me by my caregivers. Caregiver/RN/Doctor Signature/Date: The above-named patient and/or guardian has received patient instructions on this date. + Original Patient Signature Page (only) stays with chart. Please make copy for patient.
--- NOTE | 2017-08-03 14:43 | Anesthesiology Progress Note ---
Anesthesia Post Op Note Date & Time Aug 03, 2017 at 14:43 Vital Signs Vital Signs Past 12 Hours Date Time Temp Pulse Resp B/P (MAP) Pulse Ox O2 Delivery O2 Flow Rate FiO2 08/03/17 14:35 56 16 116/80 (92) 99 Room Air 08/03/17 13:14 36.6 55 20 121/73 (89) 98 Room Air Notes Mental Status: alert / awake / arousable, participated in evaluation Pt Amnestic to Procedure: Yes Nausea / Vomiting: adequately controlled Pain: adequately controlled Airway Patency, RR, SpO2: stable & adequate BP & HR: stable & adequate Hydration State: stable & adequate Anesthetic Complications: no major complications apparent
[2017-08-03 15:02] VITALS: PULSE 48; O2SAT 100
[2017-08-03 15:03] VITALS: BP 107/71
== END | disposition home or self-care (01) ==
LOC: C.GI 13:00
PROVIDERS: ATTEND Internal Medicine Gastroenterology
DX: K44.9 Diaphragmatic hernia without obstruction or gangrene (principal); E66.9 Obesity, unspecified; Z68.41 Body mass index [BMI] 40.0-44.9, adult; R10.11 Right upper quadrant pain

== ENCOUNTER 2017-08-26 17:59 | Emergency (ER) | payer OTHER ==
[~2017-08-26] VITALS: Ht 165.1 cm; Wt 110.0 kg
[2017-08-26 18:04] VITALS: TEMP 36.4; Ht 165.1 cm; Wt 110.0 kg
[2017-08-26] MEDS ORDERED: SODIUM CHLORIDE 0.9% 1000ML 1,000 ML IV STA (18:19)
--- NOTE | 2017-08-26 18:23 | EMERGENCY ROOM VISIT NOTE ---
History Report prepared by Laurelibsusy: Emily El Under the Supervision of: Dr. Terry Marquez D.O. First contact with patient: 18:14 Chief Complaint: BACK PAIN Stated Complaint: BACK/SIDE PAIN History of Present Illness The patient is a 42 year old male who presents to the Emergency Room with complaints of worsening back and right flank pain for the past 4 months. He is accompanied by his Mother. His Mother reports he recently saw a [employer], but the medications they prescribed provided no pain relief. The patient has also undergone a HIDA scan, EGD, and multiple CT scans in the past, but they have all been negative. The patient states he ate a sandwich today, but it made no difference in his pain. He rates his current discomfort as a 7/10 in severity. Tylenol and Ibuprofen have provided minimal relief. The patient denies any chest pain, shortness of breath, nausea, vomiting , diarrhea, hematuria or dysuria. Source of History: patient, parent (Mother) Onset: 4 months [employer] INSTRU[employer] Position: back Symptom Intensity: 7/10 Timing: worsening Modifying Factors (Relieving): tylenol, ibuprofen Associated Symptoms: No chest pain, No SOB, No nausea, No vomiting, No diarrhea, No urinary symptoms Review of Systems See HPI for pertinent positives & negatives. A total of 10 systems reviewed and were otherwise negative. Past Medical & Surgical Medical Problems: (1) C. difficile colitis (2) Clostridium difficile colitis (3) Partial deafness Family History Patient reports no known family medical history. Social History Smoking Status: Never Smoker Alcohol Use: none Drug Use: none Marital Status: single Housing Status: lives with family Occupation Status: unemployed Current/Historical Medications Scheduled Omeprazole (Prilosec), 20 MG PO DAILY Ranitidine Hcl (Zantac), 150 MG PO BID Allergies Coded Allergies: Penicillin V (Verified Allergy, Unknown, RASH, 08/26/17) Unclassified Drugs (Verified Allergy, Unknown, HX; C-DIFF COLITIS, MUST AVOID ANTIBIOTICS, 08/26/17) Physical Exam Vital Signs Date Time Temp Pulse Resp B/P (MAP) Pulse Ox O2 Delivery O2 Flow Rate FiO2 08/26/17 20:13 54 18 113/67 100 Room Air 08/26/17 19:24 74 18 103/64 98 Room Air 08/26/17 19:10 52 08/26/17 18:04 36.4 93 18 134/86 100 Room Air Physical Exam GENERAL: Patient is awake, alert, and in no acute distress. Patient is resting comfortably and showing no signs of anxiety EYES: The conjunctivae are clear. The pupils are round and reactive. EARS, NOSE, MOUTH AND THROAT: The nose is without any evidence of any deformity. Mucous membranes are moist tongue is midline NECK: The neck is nontender and supple. RESPIRATORY: Normal respiratory effort is noted there is no evidence of wheezing rhonchi or rales CARDIOVASCULAR: Regular rate and rhythm noted there no murmurs rubs or gallops normal S1 normal S2 GASTROINTESTINAL: The abdomen is mildly distended but soft. Mild tenderness to the RUQ, no guarding or rigidity. BACK: No midline tenderness or or step-off noted range of motion in flexion extension as well as rotation no signs of muscle spasm noted MUSCULOSKELETAL/EXTREMITIES: There is no evidence of gross deformity full range of motion is noted in the hips and shoulders SKIN: There is no obvious evidence of any rash. There are no petechiae, pallor or cyanosis noted. NEUROLOGIC: Patient is awake alert and oriented x3 Medical Decision & Procedures ER Provider Diagnostic Interpretation: Radiology results as stated below per my review and radiologist interpretation: ABDOMEN 2VIEW W/PA CHEST RTN CLINICAL HISTORY: RUQ pain pain. Nausea. COMPARISON STUDY: 11/25/2016 FINDINGS: Moderate stable cardiomegaly. Lungs are considered clear. Bowel pattern is nonobstructive. There is no secondary signs of free air. IMPRESSION: 1. Negative abdomen. 2. Moderate stable cardiomegaly with the chest otherwise negative. The above report was generated using voice recognition software. It may contain grammatical, syntax or spelling errors. Electronically signed by: Rohan Patton M.D. 08/26/2017 7:41 PM Laboratory Results 08/26/17 18:35 Red Blood Count 5.21, Mean Corpuscular Volume 86.6, Mean Corpuscular Hemoglobin 29.9, Mean Corpuscular Hemoglobin Concent 34.6, Mean Platelet Volume 9.2, Neutrophils (%) (Auto) 69.3, Lymphocytes (%) (Auto) 20.1, Monocytes (%) (Auto) 7.6, Eosinophils (%) (Auto) 1.0, Basophils (%) (Auto) 0.6, Neutrophils # (Auto) 5.02, Lymphocytes # (Auto) 1.45, Monocytes # (Auto) 0.55, Eosinophils # (Auto) 0.07, Basophils # (Auto) 0.04 08/26/17 18:35 Test 08/26/17 18:35 08/26/17 19:21 White Blood Count 7.23 K/uL (4.8-10.8) Red Blood Count 5.21 M/uL (4.7-6.1) Hemoglobin 15.6 g/dL (14.0-18.0) Hematocrit 45.1 % (42-52) Mean Corpuscular Volume 86.6 fL (80-100) Mean Corpuscular Hemoglobin 29.9 pg (25-34) Mean Corpuscular Hemoglobin Concent 34.6 g/dl (32-36) Platelet Count 519 K/uL (130-400) Mean Platelet Volume 9.2 fL (7.4-10.4) Neutrophils (%) (Auto) 69.3 % Lymphocytes (%) (Auto) 20.1 % Monocytes (%) (Auto) 7.6 % Eosinophils (%) (Auto) 1.0 % Basophils (%) (Auto) 0.6 % Neutrophils # (Auto) 5.02 K/uL (1.4-6.5) Lymphocytes # (Auto) 1.45 K/uL (1.2-3.4) Monocytes # (Auto) 0.55 K/uL (0.11-0.59) Eosinophils # (Auto) 0.07 K/uL (0-0.5) Basophils # (Auto) 0.04 K/uL (0-0.2) RDW Standard Deviation 44.6 fL (36.4-46.3) RDW Coefficient of Variation 14.1 % (11.5-14.5) Immature Granulocyte % (Auto) 1.4 % Immature Granulocyte # (Auto) 0.10 K/uL (0.00-0.02) Anion Gap 7.0 mmol/L (3-11) Est Creatinine Clear Calc Drug Dose 115.9 ml/min Estimated GFR () 113.3 Estimated GFR (Non- 97.8 BUN/Creatinine Ratio 16.0 (10-20) Calcium Level 8.7 mg/dl (8.5-10.1) Total Bilirubin 0.5 mg/dl (0.2-1) Direct Bilirubin < 0.1 mg/dl (0-0.2) Aspartate Amino Transf (AST/SGOT) 21 U/L (15-37) Alanine Aminotransferase (ALT/SGPT) 46 U/L (12-78) Alkaline Phosphatase 88 U/L (45-117) Total Protein 8.2 gm/dl (6.4-8.2) Albumin 4.0 gm/dl (3.4-5.0) Lipase 150 U/L (73-393) Urine Color YELLOW Urine Appearance CLEAR (CLEAR) Urine pH 7.5 (4.5-7.5) Urine Specific Calvin 1.020 (1.000-1.030) Urine Protein NEG (NEG) Urine Glucose (UA) NEG (NEG) Urine Ketones NEG (NEG) Urine Occult Blood NEG (NEG) Urine Nitrite NEG (NEG) Urine Bilirubin NEG (NEG) Urine Urobilinogen NEG (NEG) Urine Leukocyte Esterase NEG (NEG) Laboratory results per my review. Medications Administered Medications (Trade) Dose Ordered Sig/Melisa Route Start Time Stop Time Status Last Admin Dose Admin Sodium Chloride 1,000 ml @ 999 mls/hr Q1H1M STAT IV 08/26/17 18:19 08/26/17 19:19 DC 08/26/17 18:42 999 MLS/HR ED Course 1819: NSS 1000 ml @ 999 mls/hr IV. 1823: The patient was evaluated in room B7. A complete history and physical examination were performed. 2005: I reevaluated the patient. He is feeling well and is ready to go home. I discussed his results and discharge instructions and he verbalized complete understanding and agreement. Medical Decision Prior records/ancillary studies reviewed. Triage Nursing notes reviewed. The patient's history was concerning for abdominal pain. Differential diagnosis: Etiologies such as appendicitis, diverticulitis, PUD, biliary pathology, UTI, pancreatitis, obstruction, mesenteric ischemia, aortic pathology, infections, inflammatory bowel disease, renal colic, as well as others were entertained. The patient is a 42-year-old male who presented to the emergency department for abdominal pain. The patient had reproducible right upper quadrant abdominal pain. His physical exam did not appear to be consistent with an acute surgical abdomen. He's had ongoing symptoms and a review of his recent visits shows that he has had ultrasound CAT scan as well as HIDA scan. No definite cause for his pain could be found. The patient did not have chest pain. He had no shortness of breath. I discussed the patient's laboratory and radiographic studies with him. He was treated with IV fluids. At this time he does have a follow-up appointment with the audio visual coordinator after having an upper endoscopy. I recommended that the patient started on a course of proton pump inhibitor as well as H2 blockers. I recommended that he follow-up with his family doctor as well as his audio visual coordinator for further evaluation but also return to the emergency department immediately if symptoms change worsen or the need arises. Medication Reconcilliation Current Medication List: was personally reviewed by me Blood Pressure Screening Patient's blood pressure: Normal blood pressure Blood pressure disposition: Did not require urgent referral Impression Primary Impression: RUQ abdominal pain Scribe Attestation The scribe's documentation has been prepared under my direction and personally reviewed by me in its entirety. I confirm that the note above accurately reflects all work, treatment, procedures, and medical decision making performed by me. Departure Information Dispostion Home / Self-Care Prescriptions Omeprazole (Prilosec) 20 Mg Capcr 20 MG PO DAILY, #30 CAP Prov: Terry Marquez, DO 08/26/17 Ranitidine Hcl (ZANTAC) 150 Mg Tab 150 MG PO BID, #60 TAB Prov: Terry Marquez, DO 08/26/17 Referrals No Doctor, Assigned (PCP) Patient Instructions Abdominal Pain, [facility] Additional Instructions Continue all medications as prescribed. Follow-up with the audio visual coordinator as scheduled. Follow-up with her primary care physician as scheduled. Return to the emergency department immediately if symptoms change worsen or the need arises.
[2017-08-26 18:54] LABS: BASO % 0.6 %; BASO ABS # 0.04 K/uL (0-0.2); EOS ABS # 0.07 K/uL (0-0.5); HEMATOCRIT 45.1 % (42-52); HEMOGLOBIN 15.6 g/dL (14.0-18.0); LYMPH % 20.1 %; LYMPH ABS # 1.45 K/uL (1.2-3.4); MEAN CELL VOLUME 86.6 fL (80-100); MEAN CORPUSCULAR HEMOGLOBIN 29.9 pg (25-34); MEAN CORPUSCULAR HGB CONC 34.6 g/dl (32-36); MEAN PLATELET VOLUME 9.2 fL (7.4-10.4); MONO % 7.6 %; MONO ABS # 0.55 K/uL (0.11-0.59); NEUT % 69.3 %; NEUT ABS # 5.02 K/uL (1.4-6.5); PLATELET COUNT 519 K/uL (130-400); RED CELL DISTRIBUTION WIDTH CV 14.1 % (11.5-14.5); RED CELL DISTRIBUTION WIDTH SD 44.6 fL (36.4-46.3); WHITE BLOOD COUNT 7.23 K/uL (4.8-10.8)
[2017-08-26 19:11] LABS: ALT/SGPT 46 U/L (12-78); BLOOD UREA NITROGEN 15 mg/dl (7-18); CALCIUM 8.7 mg/dl (8.5-10.1); CARBON DIOXIDE 26 mmol/L (21-32); CREATININE 0.96 mg/dl (0.60-1.40); GLUCOSE 84 mg/dl (70-99); LIPASE 150 U/L (73-393); POTASSIUM 3.7 mmol/L (3.5-5.1); SODIUM 139 mmol/L (136-145)
[2017-08-26 19:14] LABS: ALKALINE PHOSPHATASE 88 U/L (45-117); AST/SGOT 21 U/L (15-37); TOTAL PROTEIN 8.2 gm/dl (6.4-8.2)
--- NOTE | 2017-08-26 19:42 | DIAGNOSTIC IMAGING REPORT ---
ABDOMEN 2VIEW W/PA CHEST RTN CLINICAL HISTORY: RUQ pain pain. Nausea. COMPARISON STUDY: 11/25/2016 FINDINGS: Moderate stable cardiomegaly. Lungs are considered clear. Bowel pattern is nonobstructive. There is no secondary signs of free air. IMPRESSION: 1. Negative abdomen. 2. Moderate stable cardiomegaly with the chest otherwise negative. The above report was generated using voice recognition software. It may contain grammatical, syntax or spelling errors. Electronically signed by: Rohan Patton M.D. 08/26/2017 7:41 PM Dictated Date/Time: 08/26/2017 7:40 PM
[2017-08-26] MEDS ORDERED: OMEP20CA59 PO (20:12)
[2017-08-26] MEDS ORDERED: RANI150T3 PO (20:12)
[2017-08-26 20:13] VITALS: BP 113/67; PULSE 54; O2SAT 100
== END 2017-08-26 20:33 | disposition home or self-care (01) ==
LOC: C.EDB 18:00
DX: R10.11 Right upper quadrant pain (principal); H91.90 Unspecified hearing loss, unspecified ear; Z86.19 Personal history of other infectious and parasitic diseases

== ENCOUNTER 2017-09-24 13:19 | Emergency (ER) | payer OTHER ==
[~2017-09-24] VITALS: Ht 165.1 cm; Wt 110.4 kg
[~2017-09-24 13:19] MED LIST changes: -ACET-1256 PO; -LIDOCAINE HCL 2% 2 ML VIAL (20MG/ML) ONE; -MIDAZOLAM HCL 1 MG/ML 2ML VIAL ONE; -NAPR1TAB9 PO; -ONDANSETRON INJ 2 MG/ML 2 ML VIAL ONE; -PROPOFOL IV EMULSION 10 MG/ML 20 ML VIAL IV ONE; -SODIUM CHLORIDE 0.9% 500ML 500 ML IV ONE
[2017-09-24 13:44] VITALS: Ht 165.1 cm; Wt 110.4 kg
--- NOTE | 2017-09-24 14:55 | DIAGNOSTIC IMAGING REPORT ---
L-SPINE MIN 4 VIEWS ROUTINE HISTORY: Pain right low back pain COMPARISON: None. FINDINGS: There is no fracture. Mild scoliosis. Mild degenerative disc change throughout. IMPRESSION: Mild degenerative disc change. Mild scoliosis. No acute process. The above report was generated using voice recognition software. It may contain grammatical, syntax or spelling errors. Electronically signed by: Rohan Patton M.D. 09/24/2017 2:54 PM Dictated Date/Time: 09/24/2017 2:53 PM
--- NOTE | 2017-09-24 15:46 | EMERGENCY ROOM VISIT NOTE ---
History First contact with patient: 13:49 Chief Complaint: BACK PAIN Stated Complaint: BACK PAIN AND ARM GOES TO SLEEP History of Present Illness The patient is a 42 year old male who presents to the Emergency Room with complaints of low back pain. The patient reports that he has had ongoing right- sided mid back/flank pain for several months. He has had extensive testing to workup his gallbladder and it has all been negative. He saw a general surgeon who did not recommend surgery for this. He is waiting on a referral to pain management. The patient states that for the past few days, he has had pain in his right lower back. There is no abdominal pain. Denies urinary symptoms, nausea/vomiting, numbness or weakness. The patient does report that when he laid down to go to sleep last night, his right arm fell asleep. He reports the arm feels normal now. He rates his overall discomfort a 7/10 and has not taken anything for the pain. Review of Systems A complete 10 point review of systems was reviewed with the patient with pertinent positives and negatives as per history of present illness. All else were negative. Past Medical/Surgical History Medical Problems: (1) C. difficile colitis (2) Clostridium difficile colitis (3) Partial deafness Family History Patient reports no known family medical history. Social History Smoking Status: Never Smoker Alcohol Use: none Drug Use: none Marital Status: single Housing Status: lives with family Occupation Status: unemployed Current/Historical Medications No Active Prescriptions or Reported Meds Physical Exam Vital Signs Date Time Temp Pulse Resp B/P (MAP) Pulse Ox O2 Delivery O2 Flow Rate FiO2 09/24/17 15:59 36.4 52 20 120/78 98 09/24/17 13:44 36.4 52 20 120/78 98 Room Air Physical Exam VITALS: Vitals are noted on the nurse's note and reviewed by myself. Vital signs stable. GENERAL: This is a 42-year-old male, in no acute distress, nondiaphoretic, well- developed well-nourished. SKIN: The skin was without rashes. HEART: Regular rate and rhythm without murmurs gallops or rubs. LUNGS: Clear to auscultation bilaterally without wheezes, rales or rhonchi. ABDOMEN: Positive bowel sounds x 4. Soft, nontender, without masses or organomegaly. MUSCULOSKELETAL: Mild tenderness to palpation in the right lumbar region. No tenderness of the midline of the lumbar spine. Full range of motion of bilateral lower extremities. Patellar reflexes 2+. NEURO: Patient was alert and oriented to person place and time. Normal sensation. Medical Decision & Procedures ER Provider Diagnostic Interpretation: L-SPINE MIN 4 VIEWS ROUTINE HISTORY: Pain right low back pain COMPARISON: None. FINDINGS: There is no fracture. Mild scoliosis. Mild degenerative disc change throughout. IMPRESSION: Mild degenerative disc change. Mild scoliosis. No acute process. Medical Decision Differential diagnosis includes cauda equina syndrome, cord compression, disc herniation, muscle spasm, lumbar strain, epidural abscess, malignancy, transverse myelitis, urinary tract infection, colitis, diverticulitis, kidney stone, among others. The patient is a 42-year-old male who presents today complaining of low back pain. Lumbar spine x-rays were performed and read by radiology as above with no acute findings. On exam patient's pain seems to be musculoskeletal. There is no evidence of cauda equina syndrome or cord compression. There is no evidence of infection. The patient was advised to follow-up with his primary care provider. He was instructed to take ibuprofen and further conservative measures were discussed. He verbalized understanding of my assessment and treatment plan and was discharged home in good condition. Medication Reconcilliation Current Medication List: was personally reviewed by me Blood Pressure Screening Patient's blood pressure: Normal blood pressure Impression Primary Impression: Right low back pain Departure Information Dispostion Home / Self-Care Condition GOOD Prescriptions No Active Prescriptions or Reported Meds Referrals Kelly Wallis M.D. (PCP) Patient Instructions [facility] Additional Instructions You have been treated in the Emergency Department for Back Pain. For pain control, you can use the following [id number] medicines (if >12 yo): - Regular strength (325mg/tab) Tylenol (acetaminophen) 2 tabs every 4-6 hours as needed. Do not exceed 12 tablets in a 24 hour period. Avoid taking more than 4 grams (4000 mg) of Tylenol per day. This includes any other sources of acetaminophen you may take on a regular basis. - Regular strength (200 mg/tab) Advil (ibuprofen) 1-2 tabs every 4-6 hours as needed. Do not exceed a dose of 3200 mg per day. If this is an acute injury, ice can be applied to the area of pain for the first 3 days to help decrease pain and inflammation. After the first 3 days, a heating pad can be used over the area for continued soothing relief. You should schedule a follow-up appointment in 2-3 days with your Primary Care Provider for further evaluation and treatment of your back pain. Return to the Emergency Department if your current symptoms worsen despite treatment course outlined above, or if you develop any of the following symptoms : intractable pain despite aforementioned treatment course, loss of control of your bowel or bladder, numbness or tingling in your groin, or development of a fever. Problem Qualifiers Primary Impression: Right low back pain Chronicity: acute Sciatica presence: without sciatica Qualified Codes: M54.5 - Low back pain
[2017-09-24 15:59] VITALS: BP 120/78; PULSE 52; TEMP 36.4; O2SAT 98
== END 2017-09-24 16:00 | disposition home or self-care (01) ==
LOC: C.EDB 13:21 → C.EDD 16:00
DX: M54.5 Low back pain (principal)

== ENCOUNTER → 2017-10-06 | Outpatient (CLI) | payer OTHER ==
[~2017-10-06] MED LIST changes: +ACET-1256 PO; +NAPR1TAB9 PO; -OMEP20CA59 PO; -RANI150T3 PO
--- NOTE | 2017-10-06 12:36 | DIAGNOSTIC IMAGING REPORT ---
THORACIC SPINE 3 VIEWS HISTORY: THORACIC RADICULAR PAIN COMPARISON: None. FINDINGS: There is no fracture. No subluxation. Mild degenerative disc disease within the lower thoracic spine demonstrated by disc space narrowing at endplate osteophytes. Paraspinal soft tissues are unremarkable. Minimal anterior wedging within the lower thoracic spine vertebral bodies is likely chronic. IMPRESSION: No acute fracture or subluxation within the thoracic spine. Mild degenerative disc disease within the lower thoracic spine. Electronically signed by: Aaron Hinton M.D. 10/06/2017 12:34 PM Dictated Date/Time: 10/06/2017 12:31 PM
== END | disposition home or self-care (01) ==
LOC: C.RADBC 10:53
PROVIDERS: ATTEND Physician Assistant
DX: M54.14 Radiculopathy, thoracic region (principal)

== ENCOUNTER → 2017-10-11 | Outpatient (CLI) | payer OTHER ==
--- NOTE | 2017-10-11 16:41 | DIAGNOSTIC IMAGING REPORT ---
MRI OF THE THORACIC SPINE WITHOUT CONTRAST CLINICAL HISTORY: THORACIC RADICULOPATHY PAIN COMPARISON: Thoracic spine radiographs October 06, 2017. TECHNIQUE: Utilizing a 1.5 Melanie magnet and dedicated coil, multiplanar, multiecho imaging of the thoracic spine was performed without IV contrast. FINDINGS: Alignment of the thoracic spine is anatomic. Thoracic cord signal and caliber are normal. There is no intracanalicular mass or fluid collection on this unenhanced exam. Paravertebral soft tissues are unremarkable. The central canal and neural foramen are patent. There are a few tiny disc protrusions at several levels within the thoracic spine. Specifically, note is made of a small left paracentral disc protrusion at T9-T10. Multiple Schmorl's nodes are noted within the lower thoracic spine at several levels. Slight anterior wedging of several vertebral bodies is chronic. There is no suspicious marrow replacement. IMPRESSION: 1. Normal thoracic cord signal and caliber. 2. Mild multilevel degenerative disc disease with several Schmorl's nodes and a few tiny disc protrusions. No central canal and neural foraminal stenosis. Electronically signed by: Sly Garber M.D. 10/11/2017 4:40 PM Dictated Date/Time: 10/11/2017 4:30 PM
== END | disposition home or self-care (01) ==
LOC: C.MRIBC 15:32
PROVIDERS: ATTEND Physician Assistant
DX: M54.14 Radiculopathy, thoracic region (principal); M51.34 Other intervertebral disc degeneration, thoracic region

== ENCOUNTER 2022-09-07 16:06 | Observation (INO) ==
[2022-09-07] MEDS ORDERED: MoRPHine SULFATE 4 MG/ML 1 ML CARP\\VIAL IV PRN (16:30)
[2022-09-07] MEDS ORDERED: ACETAMINOPHEN 1,000 MG/100 ML VIAL IV STA (16:30)
[2022-09-07] MEDS ORDERED: MoRPHine SULFATE 4 MG/ML 1 ML CARP\\VIAL IV STA (16:30)
[2022-09-07] MEDS ORDERED: ONDANSETRON INJ 2 MG/ML 2 ML VIAL IV STA (16:30)
[2022-09-07] MEDS ORDERED: SODIUM CHLORIDE 0.9% 1000ML 1,000 ML IV ONE (16:30)
--- NOTE | 2022-09-07 16:30 | Emergency Department Note ---
Impression & Plan Acute upper abdominal pain, Leukocytosis, Pneumonia, S/P endoscopy ED Provider Note NAME: OVI POLK AGE: 47 SEX: M : 1975 ARRIVES VIA: Walk-In INFORMANT: [Patient][mother] ED PROVIDER(S): [Josse Harry MD] CHIEF COMPLAINT: Abdominal pain, chills HISTORY OF PRESENT ILLNESS: The patient is a 47-year-old male presents the ED with upper abdominal pain that is rated as severe. He was doubled over. He has had some chills. This all began an hour ago. The patient did have an ultrasound endoscopy performed earlier today at 8 AM, about 8 hours ago. He was fine up until the abdominal pain began and the chills began. There has been no cough or congestion or shortness of breath. He has not had urinary complaints. With the endoscopy, a biopsy of the right hepatic lobe was performed. A polyp was clipped from the stomach. PMHx/PSHx: See Below SOCIAL HISTORY: See Below. PHYSICAL EXAM: GENERAL: Patient is in no acute distress. HEENT: No acute trauma, normocephalic atraumatic, mucous membranes moist, no nasal congestion. NECK: No stridor, no adenopathy, no meningismus, trachea is midline. LUNGS: Clear to auscultation bilaterally, no wheeze, no rhonchi, breath sounds equal. HEART: Without murmurs gallops or rubs, regular rate and rhythm. ABDOMEN: Soft, tender in the upper quadrants, no peritonitis. EXTREMITIES: No cyanosis or edema, full range of motion of all the joints wi thout pain or difficulty, no signs for acute trauma. NEUROLOGIC: Oriented x 3, no acute motor or sensory deficits, no focal weakness. Mental disability noted SKIN: No rash, no jaundice, no diaphoresis. DIFFERENTIAL DIAGNOSIS: Bacteremia, abscess, bowel perforation, viral illness, RSV, COVID-19, influenza, among others. EMERGENCY DEPARTMENT COURSE/PROCEDURES: Prior/Outside records reviewed: Previous hospital visits. Endoscopy notes. MEDICAL DECISION MAKING: There is a very subtle leukocytosis, this certainly could be consistent with infection. There was a normal hemoglobin. Platelet count slightly elevated. No renal failure or significant electrolyte abnormality. No concerning liver enzyme elevation. No pancreatitis. Urinalysis did not show infection. COVID, influenza and RSV test were negative. Chest film was unremarkable per my review, there was no pneumonia or pneumothorax. No free air. Abdominal and pelvis CT does not show any acute surgical process. A bilateral lower lung pneu monia was suspected. The patient presents with upper abdominal pain and chills since his endoscopy earlier today. Aspiration certainly is a possibility. The patient was given IV saline for hydration, 1 L. He received IV Zofran, IV morphine. He was given IV cefepime as empiric antibiotic coverage, he received IV Tylenol. I did speak with the on-call GI physician, Dr. Moore. No emergent GI intervention is required. They can see the patient tomorrow in consult. I spoke with the patient and his family, I did speak with case management, I do think hospitalization is warranted. With the above care, the patient seems much more comfortable. I did consult the on-call hospitalist. DISPOSITION: Based on the patient's presentation and findings, I believe hospital admission is warranted/appropriate. Past Med/Surg History Medical History Abscess of axilla, left Abscess of left thigh Axillary abscess C. 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 Beliefs That Will Affect Care: None Current Living Situation: Family Other Information That Helps Us Care for You: No Feels Safe at Home: Yes Safety Concerns: Feels Safe At This Time Assistive Devices: None Allergies Allergies Allergy/AdvReac Type Severity Reaction Status Date / Time penicillin V Allergy Unknown RASH Verified 09/07/22 16:21 Unclassified Drugs Allergy Unknown HX; C-DIFF Uncoded 09/07/22 16:21 COLITIS, MUST AVOID ANTIBIOTICS Home Meds Home Medications Medication Instructions Recorded Confirmed loperamide 2 mg capsule 2 mg PO QID PRN Diarrhea 09/07/22 09/07/22 omeprazole 40 mg capsule,delayed 40 mg PO DAILY 09/07/22 09/07/22 release sucralfate 1 gram tablet 1 g PO QID 09/07/22 09/07/22 Results & Data (ED) Vital Signs Vital Signs - 24 hr 09/07/22 16:08 09/07/22 17:02 Temperature 37.5 C Temperature Source Temporal Artery Scan Pulse Rate 81 Pulse Rate [Left Finger] 72 Respiratory Rate 18 17 Respiratory Effort / Characteristics Non-Labored Spontaneous Non-Labored Respiratory Depth Normal Respiratory Pattern Regular Blood Pressure 189/92 H Blood Pressure [Left Arm] 134/82 Blood Pressure Mean 124 Blood Pressure Mean [Left Arm] 99 Pulse Oximetry 97 95 Oxygen Delivery Method Room Air Room Air Sepsis Recent Fever Within 48 Hours No Sepsis New/Unexplained Change in Mental Status No Sepsis Action Taken by Nursing No Action Required Home Medications Current Medication List: was personally reviewed by me Laboratory Data Attestation: I reviewed the patient's lab results. 09/07/22 16:25 09/07/22 16:25 Lab Results 09/07/22 09/07/22 09/07/22 Range/Units 16:25 16:25 16:37 WBC 11.94 H (4.8-10.8) K/ul RBC 5.02 (4.70-6.10) M/uL Hgb 14.9 (14.0-18.0) g/dl Hct 43.2 (42.0-52.0) % MCV 86.1 (80.0-100.0) fL MCH 29.7 (25.0-34.0) pg MCHC 34.5 (32.0-36.0) g/dL RDW Std Deviation 44.5 (36.4-46.3) fL RDW Coeff of Gaurang 14.1 (11.5-14.5) % Plt Count 599 H (130-400) K/uL MPV 9.0 L (9.4-12.4) fL Immature Gran % (Auto) 0.6 % Neut % (Auto) 89.1 % Lymph % (Auto) 4.0 % Craven % (Auto) 5.9 % Eos % (Auto) 0.1 % Baso % (Auto) 0.3 % Neut # (Auto) 10.64 H (1.40-6.50) K/uL Lymph # (Auto) 0.48 L (1.2-3.4) K/uL Craven # (Auto) 0.70 H (0.11-0.59) K/uL Eos # (Auto) 0.01 (0-0.50) K/uL Baso # (Auto) 0.04 (0-0.2) K/uL Immature Gran # (Auto) 0.07 (0.01-0.20) K/uL Sodium 134 L (136-145) mmol/L Potassium 3.9 (3.5-5.1) mmol/L Chloride 103 (98-107) mmol/L Carbon Dioxide 27 (21-32) mmol/L Anion Gap 4 (3-11) BUN 18 (6-23) mg/dl Creatinine 0.85 (0.6-1.4) mg/dl Est Cr Clr Drug Dosing 115.0 ml/min Est GFR ( Amer) 121.1 ml/min Est GFR (Non-Af Amer) 104.5 ml/min BUN/Creatinine Ratio 21.2 H (10-20) Glucose 96 (70-99(Fasting)) mg/dl Lactate Calcium 8.9 (8.5-10.1) mg/dl Magnesium 2.0 (1.7-2.4) mg/dl Total Bilirubin 1.3 H (0.2-1.0) mg/dl AST 24 (13-39) U/L ALT 29 (7-52) U/L Alkaline Phosphatase 80 (34-104) U/L B-Natriuretic Peptide (0-100) pg/ml Total Protein 7.8 (6.0-8.3) gm/dl Albumin 4.4 (3.4-5.0) gm/dl Globulin 3.4 (2.5-4.0) gm/dl Albumin/Globulin Ratio 1.3 (0.9-2) Lipase 23 (11-82) U/L Urine Color Urine Appearance (Clear) Urine pH (4.5-7.5) Ur Specific [place] (1.000-1.030) Urine Protein (Negative) Urine Glucose (UA) (Negative) Urine Ketones (Negative) Urine Blood (Negative) Urine Nitrite (Negative) Urine Bilirubin (Negative) Urine Urobilinogen (Negative) Ur Leukocyte Esterase (Negative) SARS-CoV-2 (PCR) NEGATIVE (Negative) Influenza Type A (PCR) Negative (Neg) Influenza Type B (PCR) Negative (Neg) RSV (RT-PCR) Negative (Neg) 09/07/22 09/07/22 09/07/22 Range/Units 16:57 16:57 18:35 WBC (4.8-10.8) K/ul RBC (4.70-6.10) M/uL Hgb (14.0-18.0) g/dl Hct (42.0-52.0) % MCV (80.0-100.0) fL MCH (25.0-34.0) pg MCHC (32.0-36.0) g/dL RDW Std Deviation (36.4-46.3) fL RDW Coeff of Gaurang (11.5-14.5) % Plt Count (130-400) K/uL MPV (9.4-12.4) fL Immature Gran % (Auto) % Neut % (Auto) % Lymph % (Auto) % Craven % (Auto) % Eos % (Auto) % Baso % (Auto) % Neut # (Auto) (1.40-6.50) K/uL Lymph # (Auto) (1.2-3.4) K/uL Craven # (Auto) (0.11-0.59) K/uL Eos # (Auto) (0-0.50) K/uL Baso # (Auto) (0-0.2) K/uL Immature Gran # (Auto) (0.01-0.20) K/uL Sodium (136-145) mmol/L Potassium (3.5-5.1) mmol/L Chloride (98-107) mmol/L Carbon Dioxide (21-32) mmol/L Anion Gap (3-11) BUN (6-23) mg/dl Creatinine (0.6-1.4) mg/dl Est Cr Clr Drug Dosing ml/min Est GFR ( Amer) ml/min Est GFR (Non-Af Amer) ml/min BUN/Creatinine Ratio (10-20) Glucose (70-99(Fasting)) mg/dl Lactate Cancelled 0.4 Calcium (8.5-10.1) mg/dl Magnesium (1.7-2.4) mg/dl Total Bilirubin (0.2-1.0) mg/dl AST (13-39) U/L ALT (7-52) U/L Alkaline Phosphatase (34-104) U/L B-Natriuretic Peptide (0-100) pg/ml Total Protein (6.0-8.3) gm/dl Albumin (3.4-5.0) gm/dl Globulin (2.5-4.0) gm/dl Albumin/Globulin Ratio (0.9-2) Lipase (11-82) U/L Urine Color Yellow Urine Appearance Clear (Clear) Urine pH >= 9.0 H (4.5-7.5) Ur Specific [place] 1.017 (1.000-1.030) Urine Protein Negative (Negative) Urine Glucose (UA) Negative (Negative) Urine Ketones Negative (Negative) Urine Blood Negative (Negative) Urine Nitrite Negative (Negative) Urine Bilirubin Negative (Negative) Urine Urobilinogen Negative (Negative) Ur Leukocyte Esterase Negative (Negative) SARS-CoV-2 (PCR) (Negative) Influenza Type A (PCR) (Neg) Influenza Type B (PCR) (Neg) RSV (RT-PCR) (Neg) 09/07/22 Range/Units 19:38 WBC (4.8-10.8) K/ul RBC (4.70-6.10) M/uL Hgb (14.0-18.0) g/dl Hct (42.0-52.0) % MCV (80.0-100.0) fL MCH (25.0-34.0) pg MCHC (32.0-36.0) g/dL RDW Std Deviation (36.4-46.3) fL RDW Coeff of Gaurang (11.5-14.5) % Plt Count (130-400) K/uL MPV (9.4-12.4) fL Immature Gran % (Auto) % Neut % (Auto) % Lymph % (Auto) % Craven % (Auto) % Eos % (Auto) % Baso % (Auto) % Neut # (Auto) (1.40-6.50) K/uL Lymph # (Auto) (1.2-3.4) K/uL Craven # (Auto) (0.11-0.59) K/uL Eos # (Auto) (0-0.50) K/uL Baso # (Auto) (0-0.2) K/uL Immature Gran # (Auto) (0.01-0.20) K/uL Sodium (136-145) mmol/L Potassium (3.5-5.1) mmol/L Chloride (98-107) mmol/L Carbon Dioxide (21-32) mmol/L Anion Gap (3-11) BUN (6-23) mg/dl Creatinine (0.6-1.4) mg/dl Est Cr Clr Drug Dosing ml/min Est GFR ( Amer) ml/min Est GFR (Non-Af Amer) ml/min BUN/Creatinine Ratio (10-20) Glucose (70-99(Fasting)) mg/dl Lactate Calcium (8.5-10.1) mg/dl Magnesium (1.7-2.4) mg/dl Total Bilirubin (0.2-1.0) mg/dl AST (13-39) U/L ALT (7-52) U/L Alkaline Phosphatase (34-104) U/L B-Natriuretic Peptide 60 (0-100) pg/ml Total Protein (6.0-8.3) gm/dl Albumin (3.4-5.0) gm/dl Globulin (2.5-4.0) gm/dl Albumin/Globulin Ratio (0.9-2) Lipase (11-82) U/L Urine Color Urine Appearance (Clear) Urine pH (4.5-7.5) Ur Specific [place] (1.000-1.030) Urine Protein (Negative) Urine Glucose (UA) (Negative) Urine Ketones (Negative) Urine Blood (Negative) Urine Nitrite (Negative) Urine Bilirubin (Negative) Urine Urobilinogen (Negative) Ur Leukocyte Esterase (Negative) SARS-CoV-2 (PCR) (Negative) Influenza Type A (PCR) (Neg) Influenza Type B (PCR) (Neg) RSV (RT-PCR) (Neg) Administered Medications Ketorolac Tromethamine (Ketorolac Tromethamine 15 Mg/Ml Vial) 15 mg IV Q6H PRN PRN Reason: Pain Stop: 09/12/22 20:11 Last Admin: 09/07/22 22:28 Dose: 15 mg Documented By: GCB Lactobacillus Acidophilus (Advanced Probiotic 1250 Mg Capsule) 2 cap PO DAILY JOSÉ Stop: 10/07/22 22:22 Last Admin: 09/07/22 22:47 Dose: 2 cap Documented By: MAYA Sucralfate (Sucralfate 1 Gm Tab) 1 gm PO ACHS JOSÉ Stop: 10/07/22 22:22 Last Admin: 09/07/22 22:47 Dose: 1 gm Documented By: MAYA Discontinued Medications Sodium Chloride (Nss 1000ml) 1,000 mls @ 999 mls/hr IV .Q1H1M ONE Stop: 09/07/22 17:30 Last Infusion: 09/07/22 19:04 Dose: 0 mls/hr Documented By: Admin: 09/07/22 16:48 Dose: 999 mls/hr Documented By: ASHLEE Acetaminophen (Ofirmev) 1,000 mg in 100 mls @ 400 mls/hr IV NOW STA Stop: 09/07/22 16:44 Last Infusion: 09/07/22 17:11 Dose: 0 mls/hr Documented By: Admin: 09/07/22 16:48 Dose: 400 mls/hr Documented By: ASHLEE Cefepime HCl (Maxipime) 2,000 mg in 20 mls @ 5 mls/min IV NOW STA; Protocol Stop: 09/07/22 17:04 Last Admin: 09/07/22 17:07 Dose: 5 mls/min Documented By: ABHINAV Clindamycin Phosphate (Cleocin/D5w) 600 mg in 50 mls @ 100 mls/hr IV NOW ONE Stop: 09/07/22 20:36 Last Infusion: 09/07/22 21:17 Dose: 0 mls/hr Documented By: Admin: 09/07/22 20:31 Dose: 100 mls/hr Documented By: ABHINAV Ioversol (Optiray 350 100ml) 87 ml IV ONCE ONE Stop: 09/07/22 17:46 Last Admin: 09/07/22 17:49 Dose: 87 ml Documented By: SAJI Morphine Sulfate (Morphine Sulfate 4 Mg/Ml 1 Ml Carp\Vial) 4 mg IV NOW STA Stop: 09/07/22 16:31 Last Admin: 09/07/22 16:49 Dose: 4 mg Documented By: ASHLEE Ondansetron HCl (Ondansetron Inj 2 Mg/Ml 2 Ml Vial) 4 mg IV NOW STA Stop: 09/07/22 16:31 Last Admin: 09/07/22 16:49 Dose: 4 mg Documented By: ML Imaging Data Radiologist's Impression: Abdomen/Pelvis CT 09/07/22 16:[address] WITH IV CONTRAST CT DOSE: 966.17 mGy.cm HISTORY: Acute upper abdominal pain with recent endoscopic biopsy of the liver. endosc with liver biopsy, pain, chills TECHNIQUE: Multiaxial CT images of the abdomen and pelvis were performed following the IV administration of 87 cc of Optiray, A dose lowering technique was utilized adhering to the principles of ALARA. COMPARISON STUDY: 10/28/2021 FINDINGS: Mild cardiomegaly. No patchy bibasilar groundglass and consolidative opacities. Study is degraded by respiratory motion artifact. No pneumatosis or pneumoperitoneum. Spleen is enlarged measuring up to 19.4 cm in length, previously 17.9 cm. Unremarkable pancreas, gallbladder and adrenal glands. Unremarkable appearance of the liver. Patent portal vein. Unremarkable kidneys. No hydronephrosis. Enlargement with heterogeneity of the prostate. Mild adjacent inflammatory stranding. Small fat filled inguinal hernias. No abdominal aortic aneurysm or lymphadenopathy identified. No bowel obstruction or bowel wall thickening. Endoscopy clip is noted involving a loop of bowel within the abdominal right lower quadrant on image 337. Normal appendix. No ascites or mesenteric inflammation. Unremarkable soft tissues. No acute fracture identified. Mild mid lumbar dextroscoliosis. IMPRESSION: \ 1. No bowel obstruction or bowel wall thickening. Normal appendix. 2. Moderate splenomegaly. 3. Mild prostamegaly with trace adjacent inflammatory stranding. Correlate with PSA level to exclude prostatitis. 4. Subsegmental bibasilar opacities are suspicious for a mild infectious or inflammatory pneumonitis. ACT 112: Negative or not required by law. The above report was generated using voice recognition software. It may contain grammatical, syntax or spelling errors. Electronically signed by: Roque Arriaga M.D. 09/07/2022 6:04 PM Chest X-Ray 09/07/22 16:30 XR chest 1V portable CLINICAL HISTORY: abd pain TECHNIQUE: Single frontal radiograph of the chest was obtained. Comparison: Comparison is made to chest radiograph 06/13/2022 FINDINGS: No lines and tubes are seen. Cardiomegaly is noted. Prominence and cephalization of the vasculature is seen. No evidence of pleural effusion or pneumothorax. IMPRESSION: Cardiomegaly and mild pulmonary edema. ACT 112: Negative or not required by law. Electronically signed by: Damián Rose M.D. 09/07/2022 4:49 PM Discharge Plan Visit Data Chief Complaint: Abdominal Pain Stated Complaint: REF BY DOC, ABDOMINAL PAIN,TOOK CYST OF STOMACH ED Provider: Josse Harry Discharge Problem: Acute upper abdominal pain, Leukocytosis, Pneumonia, S/P endoscopy Patient Disposition: Admitted As Inpatient Condition: Fair Discharge Instructions Interventions: ED Discharge Assessment Last Done: 09/07/22 22:09
--- NOTE | 2022-09-07 16:51 | XRay Report ---
XR chest 1V portable CLINICAL HISTORY: abd pain TECHNIQUE: Single frontal radiograph of the chest was obtained. Comparison: Comparison is made to chest radiograph 06/13/2022 FINDINGS: No lines and tubes are seen. Cardiomegaly is noted. Prominence and cephalization of the vasculature i s seen. No evidence of pleural effusion or pneumothorax. IMPRESSION: Cardiomegaly and mild pulmonary edema. ACT 112: Negative or not required by law. Electronically signed by: Damián Rose M.D. 09/07/2022 4:49 PM
[2022-09-07 16:53] LABS: Basophils # (auto) 0.04 K/uL (0-0.2); Basophils % (auto) 0.3 %; Eosinophils # (auto) 0.01 K/uL (0-0.50); Eosinophils % (auto) 0.1 %; Hematocrit (blood only) 43.2 % (42.0-52.0); Hemoglobin 14.9 g/dl (14.0-18.0); Immature Granulocytes # (auto) 0.07 K/uL (0.01-0.20); Immature Granulocytes % (auto) 0.6 %; Lymphocytes # (auto) 0.48 K/uL (1.2-3.4); Mean Corpuscular Hemoglobin 29.7 pg (25.0-34.0); Mean Corpuscular Hgb Conc 34.5 g/dL (32.0-36.0); Mean Corpuscular Volume 86.1 fL (80.0-100.0); Monocytes % (auto) 5.9 %; Neutrophils # (auto) 10.64 K/uL (1.40-6.50); Neutrophils % (auto) 89.1 %; Platelet Count 599 K/uL (130-400); RDW Coefficient of Variation 14.1 % (11.5-14.5); RDW Standard Deviation 44.5 fL (36.4-46.3); Red Blood Count 5.02 M/uL (4.70-6.10); White Blood Count 11.94 K/ul (4.8-10.8)
[2022-09-07] MEDS ORDERED: CEFEPIME 2,000 MG/20 ML VIAL IV STA (17:01)
[2022-09-07 17:12] LABS: Albumin Globulin Ratio 1.3 (0.9-2); Albumin Level 4.4 gm/dl (3.4-5.0); BUN Creatinine Ratio 21.2 (10-20); Bilirubin,Total 1.3 mg/dl (0.2-1.0); Calcium 8.9 mg/dl (8.5-10.1); Est GFR (African American) 121.1 ml/min; Est GFR (Non-African American) 104.5 ml/min; Globulin 3.4 gm/dl (2.5-4.0); Potassium 3.9 mmol/L (3.5-5.1); Total Protein 7.8 gm/dl (6.0-8.3)
[2022-09-07 17:14] LABS: Appearance Urine Clear (Clear); Bilirubin Urine Negative (Negative); Blood Urine Negative (Negative); Color Urine Yellow; Glucose Urine UA Negative (Negative); Ketones Urine Negative (Negative); Leukocyte Esterase Urine Negative (Negative); Nitrite Urine Negative (Negative); Protein Urine Negative (Negative); Specific Gravity Urine 1.017 (1.000-1.030); Urobilinogen Urine Negative (Negative); pH Urine >= 9.0 (4.5-7.5)
[2022-09-07] MEDS ORDERED: OPTIRAY 350 100ml IV ONE (17:45)
[2022-09-07 17:48] LABS: Influenza A virus by PCR Negative (Neg); Influenza B virus by PCR Negative (Neg); RSV by PCR Negative (Neg); SARS CoV2 RNA(COVID-19) Ceph NEGATIVE (Negative)
--- NOTE | 2022-09-07 18:06 | CT Scan Report ---
ABDOMEN AND PELVIS CT WITH IV CONTRAST CT DOSE: 966.17 mGy.cm HISTORY: Acute upper abdominal pain with recent endoscopic biopsy of the liver. endosc with liver bi opsy, pain, chills TECHNIQUE: Multiaxial CT images of the abdomen and pelvis were performed following the IV administrat ion of 87 cc of Optiray, A dose lowering technique was utilized adhering to the principles of ALARA. COMPARISON STUDY: 10/28/2021 FINDINGS: Mild cardiomegaly. No patchy bibasilar groundglass and consolidative opacities. Study is de graded by respiratory motion artifact. No pneumatosis or pneumoperitoneum. Spleen is enlarged measuri ng up to 19.4 cm in length, previously 17.9 cm. Unremarkable pancreas, gallbladder and adrenal glands . Unremarkable appearance of the liver. Patent portal vein. Unremarkable kidneys. No hydronephrosis. Enlargement with heterogeneity of the prostate. Mild adjacen t inflammatory stranding. Small fat filled inguinal hernias. No abdominal aortic aneurysm or lymphade nopathy identified. No bowel obstruction or bowel wall thickening. Endoscopy clip is noted involving a loop of bowel within the abdominal right lower quadrant on image 337. Normal appendix. No ascites o r mesenteric inflammation. Unremarkable soft tissues. No acute fracture identified. Mild mid lumbar d extroscoliosis. IMPRESSION: \ 1. No bowel obstruction or bowel wall thickening. Normal appendix. 2. Moderate splenomegaly. 3. Mild prostamegaly with trace adjacent inflammatory stranding. Correlate with PSA level to exclude prostatitis. 4. Subsegmental bibasilar opacities are suspicious for a mild infectious or inflammatory pneumonitis. ACT 112: Negative or not required by law. The above report was generated using voice recognition software. It may contain grammatical, syntax o r spelling errors. Electronically signed by: Roque Arriaga M.D. 09/07/2022 6:04 PM
[2022-09-07] MEDS ORDERED: CLINDAMYCIN/D5W 600 MG/50 ML BAG IV ONE (20:07)
--- NOTE | 2022-09-07 20:07 | History & Physical Report ---
Date of Service September 07, 2022 Assessment & Plan (1) Aspiration pneumonitis: Plan: Post emesis secondary to postprocedural abdominal pain Recent outpatient EGD/EUS No sepsis for now hx intellectual disability past history of C. difficile status post fecal transplant OBS GMF Clindamycin given PCN allergy Patient counseled regarding risk of recurrent C. difficile with antibiotic Rx Aspiration precautions DVT prophylaxis with Lovenox subcu Full code Text document was generated using [employer] voice recognition software. It may contain grammatical or spelling errors. Kindly contact undersigned for clarification of any documentation item in question. History of Present Illness Chief Complaint: Abdominal pain, cough Primary Care Provider: Dylan Paredes DO History obtained from patient and records. Medical history significant for hyperlipidemia, intellectual disability, past history of C. difficile status post fecal transplant. Last confinement 2013 for sepsis secondary to recurrent C. difficile colitis. Patient underwent outpatient EGD/EUS at [facility] for epiga stric pain. EGD showed single gastric polyp status post resection. Prilosec and sucralfate tablet course recommended. EUS showed abnormal echogenicity in the visualized portion of the right hepatic lobe. Subsequent fine-needle biopsy done. At home, patient experienced left-sided stomach pain going to his chest followed by emesis. Subsequent dry cough symptoms and shortness of breath. Patient directed to ER for evaluation. Cefepime administered at the ER. Medical History as above Surgical History : None Family History : Hypertension, DM, Personal/Social history : Past tobacco abuse, no EtOH intake, [employer] employee Allergies Allergy/AdvReac Type Severity Reaction Status Date / Time penicillin V Allergy Unknown RASH Verified 09/07/22 16:21 Unclassified Drugs Allergy Unknown HX; C-DIFF Uncoded 09/07/22 16:21 COLITIS, MUST AVOID ANTIBIOTICS Home Medications Medication Instructions Recorded Confirmed Type loperamide 2 mg capsule 2 mg PO QID PRN Diarrhea 09/07/22 09/07/22 History omeprazole 40 mg capsule,delayed 40 mg PO DAILY 09/07/22 09/07/22 History release sucralfate 1 gram tablet 1 g PO QID 09/07/22 09/07/22 History Past Med/Surg History Medical History Abscess of axilla, left Abscess of left thigh Axillary abscess C. 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) Right low back pain Upper respiratory infection Viral upper respiratory illness Surgical History No pertinent past surgical history Social History Smoking Status: Never smoker Tobacco Type: Cigarettes Hx Alcohol Use: No Hx Substance Use: No Preferred Language: Guamanian Communication Ability: Effective Application Processor Required: No Beliefs That Will Affect Care: None Current Living Situation: Family Other Information That Helps Us Care for You: No Feels Safe at Home: Yes Safety Concerns: Feels Safe At This Time Assistive Devices: None Review of Systems Review of Systems: As per HPI, all other systems reviewed and negative Physical Exam Physical Exam: GENERAL: Slightly uncomfortable, pleasant, obese, no respiratory distress SKIN: Normal color, warm HEENT: [place] palpebral conjunctivae, no ptosis, dry buccal mucosa NECK : Supple, short neck, no tenderness CHEST decreased breath sounds, no tenderness HEART : RRR, no obvious murmurs ABDOMEN: Some distention, minimal epigastric tenderness EXTREMITIES : Minimal LE swelling, no LE tenderness, no other conspicuous deformities noted NEUROLOGIC : Coherent, no facial asymmetry, no other gross focality Results & Data Results & Data ([facility]) Vital Signs (Past 12 Hours) Vital Signs Temp Pulse Pulse Resp BP BP Pulse Ox 09/07/22 17:02 72 17 134/82 95 09/07/22 16:08 37.5 C 81 18 189/92 H 97 O2 Del Method 09/07/22 17:02 Room Air 09/07/22 16:08 Room Air Laboratory Results Laboratory Results WBC 11.94 K/ul (4.8-10.8) H 09/07/22 16:25 RBC 5.02 M/uL (4.70-6.10) 09/07/22 16:25 Hgb 14.9 g/dl (14.0-18.0) 09/07/22 16:25 Hct 43.2 % (42.0-52.0) 09/07/22 16:25 MCV 86.1 fL (80.0-100.0) 09/07/22 16:25 MCH 29.7 pg (25.0-34.0) 09/07/22 16: MCHC 34.5 g/dL (32.0-36.0) 09/07/22 16:25 RDW Std Deviation 44.5 fL (36.4-46.3) 09/07/22 16: RDW Coeff of Gaurang 14.1 % (11.5-14.5) 09/07/22 16:25 Plt Count 599 K/uL (130-400) H 09/07/22 16:25 MPV 9.0 fL (9.4-12.4) L 09/07/22 16:25 Immature Gran % (Auto) 0.6 % 09/07/22 16:25 Neut % (Auto) 89.1 % 09/07/22 16:25 Lymph % (Auto) 4.0 % 09/07/22 16:25 [place] % (Auto) 5.9 % 09/07/22 16:25 Eos % (Auto) 0.1 % 09/07/22 16:25 Baso % (Auto) 0.3 % 09/07/22 16:25 Neut # (Auto) 10.64 K/uL (1.40-6.50) H 09/07/22 16:25 Lymph # (Auto) 0.48 K/uL (1.2-3.4) L 09/07/22 16:25 [place] # (Auto) 0.70 K/uL (0.11-0.59) H 09/07/22 16:25 Eos # (Auto) 0.01 K/uL (0-0.50) 09/07/22 16:25 Baso # (Auto) 0.04 K/uL (0-0.2) 09/07/22 16:25 Immature Gran # (Auto) 0.07 K/uL (0.01-0.20) 09/07/22 16:25 Sodium 134 mmol/L (136-145) L 09/07/22 16:25 Potassium 3.9 mmol/L (3.5-5.1) 09/07/22 16:25 Chloride 103 mmol/L (98-107) 09/07/22 16:25 Carbon Dioxide 27 mmol/L (21-32) 09/07/22 16:25 Anion Gap 4 (3-11) 09/07/22 16:25 BUN 18 mg/dl (6-23) 09/07/22 16:25 Creatinine 0.85 mg/dl (0.6-1.4) 09/07/22 16:25 Est Cr Clr Drug Dosing 115.0 ml/min 09/07/22 16:25 Est GFR ( Amer) 121.1 ml/min 09/07/22 16:25 Est GFR (Non-Af Amer) 104.5 ml/min 09/07/22 16:25 BUN/Creatinine Ratio 21.2 (10-20) H 09/07/22 16:25 Glucose 96 mg/dl (70-99(Fasting)) 09/07/22 16:25 Lactate 0.4 mmol/L (0.4-2.0) 09/07/22 18:35 Calcium 8.9 mg/dl (8.5-10.1) 09/07/22 16:25 Magnesium 2.0 mg/dl (1.7-2.4) 09/07/22 16:25 Total Bilirubin 1.3 mg/dl (0.2-1.0) H 09/07/22 16:25 AST 24 U/L (13-39) 09/07/22 16:25 ALT 29 U/L (7-52) 09/07/22 16:25 Alkaline Phosphatase 80 U/L (34-104) 09/07/22 16:25 Total Protein 7.8 gm/dl (6.0-8.3) 09/07/22 16:25 Albumin 4.4 gm/dl (3.4-5.0) 09/07/22 16:25 Globulin 3.4 gm/dl (2.5-4.0) 09/07/22 16:25 Albumin/Globulin Ratio 1.3 (0.9-2) 09/07/22 16:25 Lipase 23 U/L (11-82) 09/07/22 16:25 Urine Color Yellow 09/07/22 16:57 Urine Appearance Clear (Clear) 09/07/22 16:57 Urine pH >= 9.0 (4.5-7.5) H 09/07/22 16:57 Ur Specific [place] 1.017 (1.000-1.030) 09/07/22 16:57 Urine Protein Negative (Negative) 09/07/22 16:57 Urine Glucose (UA) Negative (Negative) 09/07/22 16:57 Urine Ketones Negative (Negative) 09/07/22 16:57 Urine Blood Negative (Negative) 09/07/22 16:57 Urine Nitrite Negative (Negative) 09/07/22 16:57 Urine Bilirubin Negative (Negative) 09/07/22 16:57 Urine Urobilinogen Negative (Negative) 09/07/22 16:57 Ur Leukocyte Esterase Negative (Negative) 09/07/22 16:57 SARS-CoV-2 (PCR) NEGATIVE (Negative) 09/07/22 16:37 Influenza Type A (PCR) Negative (Neg) 09/07/22 16:37 Influenza Type B (PCR) Negative (Neg) 09/07/22 16:37 RSV (RT-PCR) Negative (Neg) 09/07/22 16:37 Impressions Abdomen/Pelvis CT 09/07/22 16:[address] WITH IV CONTRAST CT DOSE: 966.17 mGy.cm HISTORY: Acute upper abdominal pain with recent endoscopic biopsy of the liver. endosc with liver biopsy, pain, chills TECHNIQUE: Multiaxial CT images of the abdomen and pelvis were performed following the IV administration of 87 cc of Optiray, A dose lowering technique was utilized adhering to the principles of ALARA. COMPARISON STUDY: 10/28/2021 FINDINGS: Mild cardiomegaly. No patchy bibasilar groundglass and consolidative opacities. Study is degraded by respiratory motion artifact. No pneumatosis or pneumoperitoneum. Spleen is enlarged measuring up to 19.4 cm in length, previously 17.9 cm. Unremarkable pancreas, gallbladder and adrenal glands. Unremarkable appearance of the liver. Patent portal vein. Unremarkable kidneys. No hydronephrosis. Enlargement with heterogeneity of the prostate. Mild adjacent inflammatory stranding. Small fat filled inguinal hernias. No abdominal aortic aneurysm or lymphadenopathy identified. No bowel obstruction or bowel wall thickening. Endoscopy clip is noted involving a loop of bowel within the abdominal right lower quadrant on image 337. Normal appendix. No ascites or mesenteric inflammation. Unremarkable soft tissues. No acute fracture identified. Mild mid lumbar dextroscoliosis. IMPRESSION: \ 1. No bowel obstruction or bowel wall thickening. Normal appendix. 2. Moderate splenomegaly. 3. Mild prostamegaly with trace adjacent inflammatory stranding. Correlate with PSA level to exclude prostatitis. 4. Subsegmental bibasilar opacities are suspicious for a mild infectious or inflammatory pneumonitis. ACT 112: Negative or not required by law. The above report was generated using voice recognition software. It may contain grammatical, syntax or spelling errors. Electronically signed by: Roque Arriaga M.D. 09/07/2022 6:04 PM Chest X-Ray 09/07/22 16:30 XR chest 1V portable CLINICAL HISTORY: abd pain TECHNIQUE: Single frontal radiograph of the chest was obtained. Comparison: Comparison is made to chest radiograph 06/13/2022 FINDINGS: No lines and tubes are seen. Cardiomegaly is noted. Prominence and cephalization of the vasculature is seen. No evidence of pleural effusion or pneumothorax. IMPRESSION: Cardiomegaly and mild pulmonary edema. ACT 112: Negative or not required by law. Electronically signed by: Damián Rose M.D. 09/07/2022 4:49 PM
[2022-09-07] MEDS ORDERED: PROMETHAZINE HCL 12.5 MG in SODIUM CHLORIDE 0.9% 50 ML IV PRN (20:12)
[2022-09-07] MEDS ORDERED: ACETAMINOPHEN 325 MG TAB PO PRN (20:12)
[2022-09-07] MEDS: KETOROLAC TROMETHAMINE 15 MG/ML VIAL IV PRN (22:28)
[2022-09-07] MEDS: ADVANCED PROBIOTIC 1250 MG CAPSULE PO SCH (22:47)
[2022-09-07] MEDS: SUCRALFATE 1 GM TAB PO SCH (22:47)
[2022-09-08] MEDS ORDERED: LACTATED RINGER'S 1,000 ML IV ONE (04:50)
[2022-09-08] MEDS: SUCRALFATE 1 GM TAB PO SCH ×4 (07:45→19:54)
[2022-09-08 08:02] LABS: BUN Creatinine Ratio 16.3 (10-20); Calcium 8.4 mg/dl (8.5-10.1); Creatinine Clr Calc Pharmacy 99.8 ml/min; Est GFR (African American) 106.7 ml/min; Est GFR (Non-African American) 92.1 ml/min; Potassium 3.7 mmol/L (3.5-5.1)
[2022-09-08] MEDS: CLINDAMYCIN HCL 150 MG CAP PO SCH ×3 (08:41→19:54)
[2022-09-08] MEDS: ENOXAPARIN INJ 40 MG/0.4 ML SYR SQ SCH (08:42)
[2022-09-08] MEDS: PANTOprazole 40 MG TAB PO SCH (08:42)
[2022-09-08] MEDS: ADVANCED PROBIOTIC 1250 MG CAPSULE PO SCH (08:42)
[2022-09-08 09:27] LABS: Basophils # (auto) 0.04 K/uL (0-0.2); Basophils % (auto) 0.4 %; Eosinophils # (auto) 0.02 K/uL (0-0.50); Eosinophils % (auto) 0.2 %; Hematocrit (blood only) 37.6 % (42.0-52.0); Hemoglobin 12.7 g/dl (14.0-18.0); Immature Granulocytes # (auto) 0.09 K/uL (0.01-0.20); Immature Granulocytes % (auto) 0.9 %; Lymphocytes # (auto) 0.91 K/uL (1.2-3.4); Lymphocytes % (auto) 9.3 %; Mean Corpuscular Hemoglobin 29.5 pg (25.0-34.0); Mean Corpuscular Hgb Conc 33.8 g/dL (32.0-36.0); Mean Corpuscular Volume 87.4 fL (80.0-100.0); Mean Platelet Volume 9.4 fL (9.4-12.4); Monocytes # (auto) 0.92 K/uL (0.11-0.59); Monocytes % (auto) 9.4 %; Neutrophils # (auto) 7.77 K/uL (1.40-6.50); Neutrophils % (auto) 79.8 %; Platelet Count 423 K/uL (130-400); RDW Coefficient of Variation 14.2 % (11.5-14.5); RDW Standard Deviation 45.6 fL (36.4-46.3); White Blood Count 9.75 K/ul (4.8-10.8)
--- NOTE | 2022-09-08 10:59 | Gastrointestinal Consultation ---
Date of Consultation September 08, 2022 Assessment & Plan (1) Acute upper abdominal pain: Patient is a 47 years old male admitted with acute upper abdominal pain symptoms following an EGD and EUS with liver biopsy procedures. He did have a gastric polyp that was removed and clip was placed. CT abdomen pelvis without acute findings of inflammation, perforation, hemorrhage or obstruction. ? pneumonitis noted in CT, possible aspiration during endoscopy . Symptomatically improved this morning. - Antibx to cover for possible aspiration pneumonia - No further workup from GI standpoint. - Advance diet as tolerated - If continues to improve, no contraindication for DC from GI standpoint Supervising Physician Co-Signing Physician Notes Mr. 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 He underwent EGD with EUS for RUQ abdominal pain yesterday by Dr. Lucio. Found to have a gastric polyp which was resected and retrieved, clip placed. Also findings of hyperechoic liver seen on EUS, fine-needle biopsy was obtained. in ER yesterday CT scan only notable for pneumonitis ? aspiration PNA. He was admitted for abx and pain control. Agree with abx. Advance diet as tolerated. On exam he is clinically well appearing with no tenderness to palpation at this time with soft abdomen and no guarding. Ok for discharge from GI standpoint. Nicole Moore, DO Gastroenterology and Hepatology History of Present Illness Reason for Consultation: Abdominal pain Requesting Physician: Dr. Janae Hernandez Attending Physician: Dr. Nicole Moore History of Present Illness Mr. 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 He underwent EGD with EUS for right upper quadrant abdominal pain symptoms yesterday by Dr. Micah Lucio. Found to have a gastric polyp which was resected and retrieved, clip placed. Also findings of hyperechoic liver seen on EUS, fine-needle biopsy was obtained. He went home and states that overnight he started having acute and severe abdominal pain symptoms. Denies any fevers, but had some chills, no nausea or vomiting. Denies any chest pain or shortness of breath. CT abdomen and pelvis with signs of moderate splenomegaly and mild prostatomegaly with inflammatory stranding also subsegmental bibasilar opacities suspicious for viral infectious or inflammatory pneumonitis. However there are no signs of bowel obstruction, hemorrhage or inflammation. Labs without leukocytosis nor LFT or lipase elevations. This morning, he reports that abdominal pain is improved, again no nausea or vomiting symptoms. Has not passed much flatus nor had any bowel movement since his procedures. Not much of an appetite, does have clear liquid tray in his room Allergies Allergy/AdvReac Type Severity Reaction Status Date / Time penicillin V Allergy Unknown RASH Verified 09/07/22 16:21 Unclassified Drugs Allergy Unknown HX; C-DIFF Uncoded 09/07/22 16:21 COLITIS, MUST AVOID ANTIBIOTICS Home Medications Medication Instructions Recorded Confirmed Type loperamide 2 mg capsule 2 mg PO QID PRN Diarrhea 09/07/22 09/07/22 History omeprazole 40 mg capsule,delayed 40 mg PO DAILY 09/07/22 09/07/22 History release sucralfate 1 gram tablet 1 g PO QID 09/07/22 09/07/22 History Patient History Medical History Abscess of axilla, left Abscess of left thigh Axillary abscess C. 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) Right low back pain Upper respiratory infection Viral upper respiratory illness Surgical History No pertinent past surgical history Social History Smoking Status: Never smoker Tobacco Type: Cigarettes Hx Alcohol Use: No Hx Substance Use: No Preferred Language: Urdu Communication Ability: Effective Clinic Mgr Required: No Beliefs That Will Affect Care: None Current Living Situation: Family Other Information That Helps Us Care for You: No Feels Safe at Home: Yes Safety Concerns: Feels Safe At This Time Assistive Devices: None Review of Systems Review of Systems: All systems reviewed & are unremarkable except as noted in HPI & below Physical Exam Constitutional: WD/WN, vitals as above well groomed, cooperative and comfortable Eyes: PERRL, conjunctivae normal, anicteric sclerae ENMT: external ear and nose normal, oropharynx normal Respiratory: normal respiratory effort, lungs clear to auscultation Cardiovascular: RRR, no murmur, no edema Gastrointestinal (Abdomen): normal bowel sounds, soft, nontender, no hepatosplenomegaly Soft, nontender to palpation in epigastric area, no guarding, bowel sounds present Skin: no rashes, warm and dry no jaundice Psychiatric: A+Ox3, euthymic affect Lymphatic: no lymphedema Results & Data ([facility]) Vital Signs (Past 12 Hours) Vital Signs Temp Pulse Resp BP Pulse Ox O2 Del Method 09/08/22 07:37 36.7 C 49 L 16 126/65 99 Room Air
--- NOTE | 2022-09-08 15:17 | Hospitalist Progress Note ---
Date of Service September 08, 2022 Assessment & Plan (1) Acute upper abdominal pain: Plan: Presented on admission for cute upper abdominal pain symptoms following an EGD and EUS with liver biopsy procedures. he had one episode emesis last night CT abd/pelvis showed no bowel obstruction or bowel wall thickening. Normal appendix. Moderate splenomegaly. gastro on board no further workup from GI standpoint. Diet advanced as tolerated Continue tylenol prn for pain Ok for discharge from GI standpoint. Possible Aspiration pneumonitis CT showed subsegmental bibasilar opacities are suspicious for a mild infectious or inflammatory pneumonitis. CXR showed cardiomegaly and mild pulmonary edema. Received cefepime IV in the ER Currently on Clindamycin Saturated well on RA Hx intellectual disability stable DVT px on Lovenox Code status Full code Admission and Anticipated Discharge Date Admission Date: September 07, 2022 Subjective Pt was seen and examined for follow up of abdominal pain Lying in bed with no acute distress Pt said last night he vomited He said that he has been good today He said that he had on and off abdominal pain He said that he thinks by Monday that he will be fine to discharge, but not before that Denies any chest pain, palpitation dizziness and SOB Review of Systems Review of Systems: All systems reviewed & are unremarkable except as noted in Subjective Physical Exam Physical Exam: General- No acute distress Head- atraumatic Eyes- PERRL, EOMI, ENT- oropharynx clear Neck- supple, no JVD Lungs- clear to auscultation Heart- regular rhythm; no murmur Abdomen- normal bowel sounds, soft, nontender Extremities- no calf tenderness Neuro- alert, oriented x 3; PERRL, EOMI; no facial palsy; no dysarthria Skin- warm & dry Results & Data Results & Data ([facility]) Vital Signs (Past 12 Hours) Vital Signs Temp Pulse Resp BP Pulse Ox O2 Del Method 09/08/22 07:37 36.7 C 49 L 16 126/65 99 Room Air
[2022-09-08] MEDS: KETOROLAC TROMETHAMINE 15 MG/ML VIAL IV PRN (23:00)
[2022-09-09] MEDS: KETOROLAC TROMETHAMINE 15 MG/ML VIAL IV PRN (05:52)
[2022-09-09] MEDS: ADVANCED PROBIOTIC 1250 MG CAPSULE PO SCH (08:04)
[2022-09-09] MEDS: PANTOprazole 40 MG TAB PO SCH (08:04)
[2022-09-09] MEDS: CLINDAMYCIN HCL 150 MG CAP PO SCH ×2 (08:04→15:17)
[2022-09-09] MEDS: SUCRALFATE 1 GM TAB PO SCH ×2 (08:04→13:01)
[2022-09-09] MEDS: ENOXAPARIN INJ 40 MG/0.4 ML SYR SQ SCH (08:05)
--- NOTE | 2022-09-09 15:38 | Hospitalist Progress Note ---
Date of Service September 09, 2022 Assessment & Plan (1) Acute upper abdominal pain: Plan: Presented on admission for cute upper abdominal pain symptoms following an EGD and EUS with liver biopsy procedures. he had one episode emesis last night CT abd/pelvis showed no bowel obstruction or bowel wall thickening. Normal appendix. Moderate splenomegaly. gastro on board no further workup from GI standpoint. Diet advanced as tolerated Continue tylenol prn for pain Ok for discharge from GI standpoint. Possible Aspiration pneumonitis Possible chemical pneumonitis since pt vomited CT showed subsegmental bibasilar opacities are suspicious for a mild infectious or inflammatory pneumonitis. CXR showed cardiomegaly and mild pulmonary edema. Received cefepime IV in the ER Currently on Clindamycin day #3 Pt is asymptomatic, afebrile discontinue abx on discharge If develops any fever or respiratory symptoms, will complete the course of the antibiotic Saturated well on RA Possible celiac disease EGD/EUS outpatient showed duodenal mucosa with mild villous blunting, increased intraepithelial lymphocytes, lamina propria lymphocytosis and focal foveolar metaplasia Finding concerning for celiac disease Will check TTG IgA Ab, IgA. 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 GI discussed finding with mother Will need outptient work up HFE DNA and possible start therapeutic phlebotomy GI will address further in next appointment on Monday Hx intellectual disability stable DVT px on Lovenox Code status Full code Admission and Anticipated Discharge Date Admission Date: September 07, 2022 Subjective Pt was seen and examined for follow up of abdominal pain Lying in bed with no acute distress Pt said that he does have abdominal tenderness He said that he thinks by Monday that he will be fine to discharge, but not before that Denies any chest pain, palpitation dizziness and SOB Review of Systems Review of Systems: All systems reviewed & are unremarkable except as noted in Subjective Physical Exam Physical Exam: General- No acute distress Head- atraumatic Eyes- PERRL, EOMI, ENT- oropharynx clear Neck- supple, no JVD Lungs- clear to auscultation Heart- regular rhythm; no murmur Abdomen- normal bowel sounds, soft, nontender Extremities- no calf tenderness Neuro- alert, oriented x 3; PERRL, EOMI; no facial palsy; no dysarthria Skin- warm & dry Results & Data Results & Data ([facility]) Vital Signs (Past 12 Hours) Vital Signs Temp Pulse Resp BP Pulse Ox O2 Del Method 09/09/22 07:21 36.9 C 60 18 97/59 L 98 Room Air
--- NOTE | 2022-09-09 16:45 | Discharge Summary ---
Date of Service September 09, 2022 Admission HPI Per Admitting Provider History obtained from patient and records. Medical history significant for hyperlipidemia, intellectual disability, past history of C. difficile status post fecal transplant. Last confinement 2013 for sepsis secondary to recurrent C. difficile colitis. Patient underwent outpatient EGD/EUS at today at [facility] for epigastric pain. EGD showed single gastric polyp status post resection. Prilosec and sucralfate tablet course recommended. EUS showed abnormal echogenicity in the visualized portion of the right hepatic lobe. Subsequent fine-needle biopsy done. At home, patient experienced left-sided stomach pain going to his chest followed by emesis. Subsequent dry cough symptoms and shortness of breath. Patient directed to ER for evaluation. Cefepime administered at the ER. Medical History as above Surgical History : None Family History : Hypertension, DM, Personal/Social history : Past tobacco abuse, no EtOH intake, [employer] employee Admission Exam Per Admitting Provider GENERAL: Slightly uncomfortable, pleasant, obese, no respiratory distress SKIN: Normal color, warm HEENT: [place] palpebral conjunctivae, no ptosis, dry buccal mucosa NECK : Supple, short neck, no tenderness CHEST decreased breath sounds, no tenderness HEART : RRR, no obvious murmurs ABDOMEN: Some distention, minimal epigastric tenderness EXTREMITIES : Minimal LE swelling, no LE tenderness, no other conspicuous deformities noted NEUROLOGIC : Coherent, no facial asymmetry, no other gross focality Principal Diagnosis Acute upper abdominal pain: Possible Aspiration pneumonitis Possible celiac disease Hepatocellular Iron Discharge Exam General- No acute distress Head- atraumatic Eyes- PERRL, EOMI, ENT- oropharynx clear Neck- supple, no JVD Lungs- clear to auscultation Heart- regular rhythm; no murmur Abdomen- normal bowel sounds, soft, nontender Extremities- no calf tenderness Neuro- alert, oriented x 3; PERRL, EOMI; no facial palsy; no dysarthria Skin- warm & dry Discharge Data Allergies Allergy/AdvReac Type Severity Reaction Status Date / Time penicillin V Allergy Unknown RASH Verified 09/07/22 16:21 Unclassified Drugs Allergy Unknown HX; C-DIFF Uncoded 09/07/22 16:21 COLITIS, MUST AVOID ANTIBIOTICS Consultations 09/07/22 21:04 ED Decision to Admit Stat 09/08/22 10:52 Consult Gastroenterology Routine Ordered Studies 09/07/22 16:30 CT abd pelvis IV con only Stat Laboratory Results WBC 9.75 K/ul (4.8-10.8) 09/08/22 06:55 RBC 4.30 M/uL (4.70-6.10) L 09/08/22 06:55 Hgb 12.7 g/dl (14.0-18.0) L 09/08/22 06:55 Hct 37.6 % (42.0-52.0) L 09/08/22 06:55 MCV 87.4 fL (80.0-100.0) 09/08/22 06:55 MCH 29.5 pg (25.0-34.0) 09/08/22 06:55 MCHC 33.8 g/dL (32.0-36.0) 09/08/22 06:55 RDW Std Deviation 45.6 fL (36.4-46.3) 09/08/22 06:55 RDW Coeff of Gaurang 14.2 % (11.5-14.5) 09/08/22 06:55 Plt Count 423 K/uL (130-400) H 09/08/22 06:55 MPV 9.4 fL (9.4-12.4) 09/08/22 06:55 Immature Gran % (Auto) 0.9 % 09/08/22 06:55 Neut % (Auto) 79.8 % 09/08/22 06:55 Lymph % (Auto) 9.3 % 09/08/22 06:55 [place] % (Auto) 9.4 % 09/08/22 06:55 Eos % (Auto) 0.2 % 09/08/22 06:55 Baso % (Auto) 0.4 % 09/08/22 06:55 Neut # (Auto) 7.77 K/uL (1.40-6.50) H 09/08/22 06:55 Lymph # (Auto) 0.91 K/uL (1.2-3.4) L 09/08/22 06:55 [place] # (Auto) 0.92 K/uL (0.11-0.59) H 09/08/22 06:55 Eos # (Auto) 0.02 K/uL (0-0.50) 09/08/22 06:55 Baso # (Auto) 0.04 K/uL (0-0.2) 09/08/22 06:55 Immature Gran # (Auto) 0.09 K/uL (0.01-0.20) 09/08/22 06:55 Sodium 135 mmol/L (136-145) L 09/08/22 06:55 Potassium 3.7 mmol/L (3.5-5.1) 09/08/22 06:55 Chloride 103 mmol/L (98-107) 09/08/22 06:55 Carbon Dioxide 28 mmol/L (21-32) 09/08/22 06:55 Anion Gap 4 (3-11) 09/08/22 06:55 BUN 16 mg/dl (6-23) 09/08/22 06:55 Creatinine 0.98 mg/dl (0.6-1.4) 09/08/22 06:55 Est Cr Clr Drug Dosing 99.8 ml/min 09/08/22 06:55 Est GFR ( Amer) 106.7 ml/min 09/08/22 06:55 Est GFR (Non-Af Amer) 92.1 ml/min 09/08/22 06:55 BUN/Creatinine Ratio 16.3 (10-20) 09/08/22 06:55 Glucose 79 mg/dl (70-99(Fasting)) 09/08/22 06:55 Lactate 0.4 mmol/L (0.4-2.0) 09/07/22 18:35 Calcium 8.4 mg/dl (8.5-10.1) L 09/08/22 06:55 Magnesium 2.0 mg/dl (1.7-2.4) 09/07/22 16:25 Total Bilirubin 1.3 mg/dl (0.2-1.0) H 09/07/22 16:25 AST 24 U/L (13-39) 09/07/22 16:25 ALT 29 U/L (7-52) 09/07/22 16:25 Alkaline Phosphatase 80 U/L (34-104) 09/07/22 16:25 B-Natriuretic Peptide 60 pg/ml (0-100) 09/07/22 19:38 Total Protein 7.8 gm/dl (6.0-8.3) 09/07/22 16:25 Albumin 4.4 gm/dl (3.4-5.0) 09/07/22 16:25 Globulin 3.4 gm/dl (2.5-4.0) 09/07/22 16:25 Albumin/Globulin Ratio 1.3 (0.9-2) 09/07/22 16: Lipase 23 U/L (11-82) 09/07/22 16:25 Urine Color Yellow 09/07/22 16:57 Urine Appearance Clear (Clear) 09/07/22 16:57 Urine pH >= 9.0 (4.5-7.5) H 09/07/22 16:57 Ur Specific [place] 1.017 (1.000-1.030) 09/07/22 16:57 Urine Protein Negative (Negative) 09/07/22 16:57 Urine Glucose (UA) Negative (Negative) 09/07/22 16:57 Urine Ketones Negative (Negative) 09/07/22 16:57 Urine Blood Negative (Negative) 09/07/22 16:57 Urine Nitrite Negative (Negative) 09/07/22 16:57 Urine Bilirubin Negative (Negative) 09/07/22 16:57 Urine Urobilinogen Negative (Negative) 09/07/22 16:57 Ur Leukocyte Esterase Negative (Negative) 09/07/22 16:57 IgA < 10.0 mg/dl (70-400) L 09/09/22 14:36 SARS-CoV-2 (PCR) NEGATIVE (Negative) 09/07/22 16:37 Influenza Type A (PCR) Negative (Neg) 09/07/22 16:37 Influenza Type B (PCR) Negative (Neg) 09/07/22 16:37 RSV (RT-PCR) Negative (Neg) 09/07/22 16:37 Impressions Abdomen/Pelvis CT 09/07/22 16:[address] WITH IV CONTRAST CT DOSE: 966.17 mGy.cm HISTORY: Acute upper abdominal pain with recent endoscopic biopsy of the liver. endosc with liver biopsy, pain, chills TECHNIQUE: Multiaxial CT images of the abdomen and pelvis were performed following the IV administration of 87 cc of Optiray, A dose lowering technique was utilized adhering to the principles of ALARA. COMPARISON STUDY: 10/28/2021 FINDINGS: Mild cardiomegaly. No patchy bibasilar groundglass and consolidative opacities. Study is degraded by respiratory motion artifact. No pneumatosis or pneumoperitoneum. Spleen is enlarged measuring up to 19.4 cm in length, previously 17.9 cm. Unremarkable pancreas, gallbladder and adrenal glands. Unremarkable appearance of the liver. Patent portal vein. Unremarkable kidneys. No hydronephrosis. Enlargement with heterogeneity of the prostate. Mild adjacent inflammatory stranding. Small fat filled inguinal hernias. No abdominal aortic aneurysm or lymphadenopathy identified. No bowel obstruction or bowel wall thickening. Endoscopy clip is noted involving a loop of bowel within the abdominal right lower quadrant on image 337. Normal appendix. No ascites or mesenteric inflammation. Unremarkable soft tissues. No acute fracture identified. Mild mid lumbar dextroscoliosis. IMPRESSION: \\ 1. No bowel obstruction or bowel wall thickening. Normal appendix. 2. Moderate splenomegaly. 3. Mild prostamegaly with trace adjacent inflammatory stranding. Correlate with PSA level to exclude prostatitis. 4. Subsegmental bibasilar opacities are suspicious for a mild infectious or inflammatory pneumonitis. ACT 112: Negative or not required by law. The above report was generated using voice recognition software. It may contain grammatical, syntax or spelling errors. Electronically signed by: Roque Arriaga M.D. 09/07/2022 6:04 PM Chest X-Ray 09/07/22 16:30 XR chest 1V portable CLINICAL HISTORY: abd pain TECHNIQUE: Single frontal radiograph of the chest was obtained. Comparison: Comparison is made to chest radiograph 06/13/2022 FINDINGS: No lines and tubes are seen. Cardiomegaly is noted. Prominence and cephalization of the vasculature is seen. No evidence of pleural effusion or pneumothorax. IMPRESSION: Cardiomegaly and mild pulmonary edema. ACT 112: Negative or not required by law. Electronically signed by: Damián Rose M.D. 09/07/2022 4:49 PM Hospital Course (1) Acute upper abdominal pain: Presented on admission for cute upper abdominal pain symptoms following an EGD and EUS with liver biopsy procedures. he had one episode emesis last night CT abd/pelvis showed no bowel obstruction or bowel wall thickening. Normal appendix. Moderate splenomegaly. gastro on board no further workup from GI standpoint. Diet advanced as tolerated Continue tylenol prn for pain Ok for discharge from GI standpoint. Possible Aspiration pneumonitis Possible chemical pneumonitis since pt vomited CT showed subsegmental bibasilar opacities are suspicious for a mild infectious or inflammatory pneumonitis. CXR showed cardiomegaly and mild pulmonary edema. Received cefepime IV in the ER Currently on Clindamycin day #3 Pt is asymptomatic, afebrile discontinue abx on discharge If develops any fever or respiratory symptoms, will complete the course of the antibiotic Saturated well on RA Possible celiac disease EGD/EUS outpatient showed duodenal mucosa with mild villous blunting, increased intraepithelial lymphocytes, lamina propria lymphocytosis and focal foveolar metaplasia Finding concerning for celiac disease Will check TTG IgA Ab, IgA. 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 GI discussed finding with mother Will need outptient work up HFE DNA and possible start therapeutic phlebotomy GI will address further in next appointment on Monday Hx intellectual disability stable DVT px on Lovenox Code status Full code Total Time Total Time Spent Total Time Spent (In Minutes): 35 minutes Discharge Plan Discharge Items Patient Disposition: Home - Self-Care Reason For Visit: ABD PAIN, ASP PNX Discharge Diagnosis: Acute upper abdominal pain: Possible Aspiration pneumonitis Possible celiac disease Hepatocellular Iron Condition on Discharge: Fair Activity: Resume your previous activity Non-emergency contact: Primary Care Provider and Impregnator Operator Call non-emergency contact if: you have any medication questions, your symptoms worsen and your temperature is above 101 Follow-up/Referrals: Dylan Paredes DO [Primary Care Provider] - (Date & Time 09/13/2022 2:20 PM Provider Dylan Paredes DO [facility] ) Diet: Gluten Free Addtl Attending Provider Instructions: Follow up with your primary care provider 09/13/2022 @ 2:20 PM Dylan Paredes DO [facility] Follow up with gastrointestinal provider next week to discuss management and work up for the possible celiac disease and the hepatocellular iron deposit ( already scheduled) Seek medical attention if you develop any fever, shortness of breath and abdominal pain Pending Studies at Discharge: Yes Studies:: Tissue transglutaminase IgA Stand-Alone Forms: My [employer], Smoking Cessation Medications and DC Order Prescriptions: Continued loperamide 2 mg capsule 2 mg PO QID PRN (Reason: Diarrhea) sucralfate 1 gram tablet 1 g PO QID Rx Instructions: PER PT "JUST STARTED AT NOON". omeprazole 40 mg capsule,delayed release(DR/EC) 40 mg PO DAILY Rx Instructions: JUST PICKED UP, DID NOT START YET Discharge Orders: Discharge Order (Routine); Ordered 09/09/22 Ordered By: Janae Hernandez Admission Data Admit Date/Time: 09/07/22 20:09 Attending Provider: Janae Hernandez Admit Provider: Jas Wilson Primary Care Provider: Dylan Paredes Other Providers: Jas Wilson ; Stanislaw Barraza ; Irwin Johnson ; Andree Stone ; Colleen Barker ; Omayra Fields ; Mariajose Stoll ; Jose Goncalves ; Zack Aguilar ; Micah Lucio ; Gisselle Moran ; Kashmir Jones ; Estee Vitale ; Krysten Naqvi ; Itzel Cárdenas ; Afia Goodrich ; Marvin Callahan ; Star Beasley ; [place] Nicole ; Nicole Moore ; Alfred Mcclain Jr
== END 2022-09-09 17:51 | disposition home or self-care (01) ==
LOC: ED 16:06 → 3E 16:06 → SUATTDRO 20:09 → 3E 22:09
DX: R10.10 Upper abdominal pain, unspecified; Z79.899 Other long term (current) drug therapy; F79 Unspecified intellectual disabilities; Z88.0 Allergy status to penicillin; R16.1 Splenomegaly, not elsewhere classified; E78.5 Hyperlipidemia, unspecified

== ENCOUNTER 2022-10-15 13:35 | Inpatient (IN) ==
[2022-10-15] MEDS ORDERED: ONDANSETRON INJ 2 MG/ML 2 ML VIAL IV STA (14:01)
[2022-10-15] MEDS ORDERED: SODIUM CHLORIDE 0.9% 1000ML 1,000 ML IV STA (14:01)
[2022-10-15] MEDS: MoRPHine SULFATE 4 MG/ML 1 ML CARP\\VIAL IV PRN ×2 (14:15→15:30)
[2022-10-15 14:20] LABS: Hematocrit (blood only) 49.8 % (42.0-52.0); Hemoglobin 17.2 g/dl (14.0-18.0); Mean Corpuscular Hemoglobin 29.6 pg (25.0-34.0); Mean Corpuscular Hgb Conc 34.5 g/dL (32.0-36.0); Mean Corpuscular Volume 85.7 fL (80.0-100.0); Mean Platelet Volume 8.8 fL (9.4-12.4); Platelet Count 557 K/uL (130-400); RDW Standard Deviation 43.8 fL (36.4-46.3); Red Blood Count 5.81 M/uL (4.70-6.10); White Blood Count 13.21 K/ul (4.8-10.8)
[2022-10-15 14:41] LABS: Basophils # (auto) 0.05 K/uL (0-0.2); Basophils % (auto) 0.4 %; Eosinophils # (auto) 0.04 K/uL (0-0.50); Eosinophils % (auto) 0.3 %; Immature Granulocytes # (auto) 0.14 K/uL (0.01-0.20); Immature Granulocytes % (auto) 1.1 %; Lymphocytes # (auto) 0.21 K/uL (1.2-3.4); Lymphocytes % (auto) 1.6 %; Monocytes # (auto) 0.63 K/uL (0.11-0.59); Monocytes % (auto) 4.8 %; Neutrophils # (auto) 12.14 K/uL (1.40-6.50); Neutrophils % (auto) 91.8 %
--- NOTE | 2022-10-15 14:46 | Emergency Department Note ---
Impression & Plan Nausea vomiting and diarrhea, Abdominal pain ED Provider Note NAME: OVI POLK AGE: 47 SEX: M : 1975 ARRIVES VIA: Walk-In INFORMANT: Patient, ED PROVIDER(S): Terry Marquez DO CHIEF COMPLAINT: Abdominal pain HPI: The patient is a 47-year-old male who presented to the emergency department for an evaluation of nausea vomiting and diarrhea. The patient was admitted to our facility recently for similar complaints. At that time no formal diagnosis was made but he did have an EGD after which he had some aspiration issues. The patient was discharged home and was feeling better until the last 24 hours when he started noticing loose bowel movements and vomiting. The patient denies having any fever. He does complain of very significant symptoms. He has had no recent traveling. The patient states he has been compliant with his outpatient medications otherwise. ROS: See above HPI for pertinent positives & negatives. A total of 10 systems reviewed and were otherwise negative. PAST MEDICAL HISTORY: See Below PAST SURGICAL HISTORY: See Below FAMILY HISTORY: See Below SOCIAL HISTORY: See Below HOME MEDICATIONS: See Below ALLERGIES: See Below VITALS: See Below PHYSICAL EXAMINATION: GENERAL: The patient is awake and alert. The patient is somewhat anxious appearing. EYES: The conjunctivae are clear. The pupils are round and reactive. EARS, NOSE, MOUTH AND THROAT: The nose is without any evidence of any deformity. NECK: The neck is nontender and supple. RESPIRATORY: Normal respiratory effort is noted there is no evidence of wheezing rhonchi or rales CARDIOVASCULAR: Regular rate and rhythm noted there no murmurs rubs or gallops normal S1 normal S2. GASTROINTESTINAL: The abdomen is distended. There is diffuse tenderness palpation. There is no guarding rigidity. MUSCULOSKELETAL/EXTREMITIES: There is no evidence of gross deformity full range of motion is noted in the hips and shoulders. SKIN: Pedal edema was noted bilaterally. Skin was warm and dry. NEUROLOGIC: Patient is awake alert and oriented x3. Gait was steady. MEDICAL DECISION MAKING: The patient is a 47-year-old male who presented to the emergency department for an evaluation of nausea vomiting and diarrhea. The patient has a history of C. difficile and stool studies are still pending. Patient was treated with IV fluids and IV pain medication. He was also given IV antiemetics. His symptoms improved somewhat. I discussed the patient's laboratory and radiographic studies with him. He continues to have some degree of nausea. He is not comfortable being discharged home at this time. I will discuss his case with the on-call [facility] hospitalist. The patient was ordered for further IV hydration. Triage Nursing notes reviewed. Prior medical records reviewed Vital Signs: reviewed and remarkable for no significant abnormalities Differential diagnosis: Gastroenteritis, food borne illness, infections, appendicitis, diverticulitis, inflammatory bowel disease, obstruction, GI bleed, biliary pathology, volvulus, as well as other pathologies. ER treatment provided: See below Diagnostics interpreted by me: ECG: EKG was obtained in the emergency department. My interpretation is normal sinus rhythm at 81 bpm. There is no ectopy. There is no acute ST segment abnormalities noted. This was compared to a tracing from June 13, 2022. No changes were noted. Cardiac Monitoring: An order was placed for continuous cardiac monitoring. The monitor shows a rate of 83 bpm with sinus rhythm. Laboratory studies: As stated above and show below. Imaging studies: See below. Radiographic imaging was reviewed by myself Consultation(s): I discussed this case with Lilibeth who is on for the [place] [facility]ist group. Past Med/Surg History Medical History Abscess of axilla, left Abscess of left thigh Axillary abscess C. 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) Pneumonia Right low back pain Upper respiratory infection Viral upper respiratory illness Surgical History No pertinent past surgical history S/P endoscopy Social History Smoking Status: Never smoker Tobacco Type: Cigarettes Hx Alcohol Use: No Hx Substance Use: No Preferred Language: French Communication Ability: Effective Gumming Machine Operator Required: No Beliefs That Will Affect Care: None Current Living Situation: Family Feels Safe at Home: Yes Assistive Devices: None Allergies Allergies Allergy/AdvReac Type Severity Reaction Status Date / Time penicillin V Allergy Unknown RASH Verified 09/07/22 16:21 Unclassified Drugs Allergy Unknown HX; C-DIFF Uncoded 01/25/23 16:21 COLITIS, MUST AVOID ANTIBIOTICS Home Meds Home Medications Medication Instructions Recorded Confirmed loperamide 2 mg capsule 2 mg PO QID PRN Diarrhea 09/07/22 09/07/22 omeprazole 40 mg capsule,delayed 40 mg PO DAILY 09/07/22 09/07/22 release sucralfate 1 gram tablet 1 g PO QID 09/07/22 09/07/22 Results & Data (ED) Vital Signs Vital Signs - 24 hr 10/15/22 13:37 10/15/22 14:08 10/15/22 14:08 Temperature 36.5 C Temperature Source Temporal Artery Scan Pulse Rate 96 H 76 Pulse Rate from SpO2 Sensor Respiratory Rate 16 16 16 Respiratory Effort / Characteristics Non-Labored Non-Labored Spontaneous Respiratory Depth Normal Normal Respiratory Pattern Regular Blood Pressure 136/94 Blood Pressure [Right Arm] 104/70 Blood Pressure Mean 108 Blood Pressure Mean [Right Arm] 81 Blood Pressure Position [Right Arm] Sitting Pulse Oximetry 98 99 99 Oxygen Delivery Method Room Air Room Air Room Air Sepsis Recent Fever Within 48 Hours No Sepsis New/Unexplained Change in Mental Status No Sepsis Action Taken by Nursing No Action Required 10/15/22 15:26 10/15/22 15:08 10/15/22 15:33 Temperature Temperature Source Pulse Rate 79 73 83 Pulse Rate from SpO2 Sensor 73 Respiratory Rate 19 20 Respiratory Effort / Characteristics Respiratory Depth Respiratory Pattern Blood Pressure 120/68 119/71 Blood Pressure [Right Arm] Blood Pressure Mean 85 87 Blood Pressure Mean [Right Arm] Blood Pressure Position [Right Arm] Pulse Oximetry 99 Oxygen Delivery Method Room Air Sepsis Recent Fever Within 48 Hours Sepsis New/Unexplained Change in Mental Status Sepsis Action Taken by Custodial Medications Current Medication List: was personally reviewed by me Laboratory Data Attestation: I reviewed the patient's lab results. 10/15/22 14:06 10/15/22 14:06 Lab Results 10/15/22 10/15/22 10/15/22 Range/Units 14:06 14:06 14:06 WBC 13.21 H (4.8-10.8) K/ul RBC 5.81 (4.70-6.10) M/uL Hgb 17.2 (14.0-18.0) g/dl Hct 49.8 (42.0-52.0) % MCV 85.7 (80.0-100.0) fL MCH 29.6 (25.0-34.0) pg MCHC 34.5 (32.0-36.0) g/dL RDW Std Deviation 43.8 (36.4-46.3) fL RDW Coeff of Gaurang 14.0 (11.5-14.5) % Plt Count 557 H (130-400) K/uL MPV 8.8 L (9.4-12.4) fL Immature Gran % (Auto) 1.1 % Neut % (Auto) 91.8 % Lymph % (Auto) 1.6 % [place] % (Auto) 4.8 % Eos % (Auto) 0.3 % Baso % (Auto) 0.4 % Neut # (Auto) 12.14 H (1.40-6.50) K/uL Lymph # (Auto) 0.21 L (1.2-3.4) K/uL [place] # (Auto) 0.63 H (0.11-0.59) K/uL Eos # (Auto) 0.04 (0-0.50) K/uL Baso # (Auto) 0.05 (0-0.2) K/uL Immature Gran # (Auto) 0.14 (0.01-0.20) K/uL ESR 16 H (0-15) mm/hr Sodium 136 (136-145) mmol/L Potassium TNP Chloride 102 (98-107) mmol/L Carbon Dioxide 27 (21-32) mmol/L Anion Gap 7 (3-11) BUN 21 (6-23) mg/dl Creatinine 1.16 (0.6-1.4) mg/dl Est Cr Clr Drug Dosing Not Reportable Est GFR ( Amer) 87.0 ml/min Est GFR (Non-Af Amer) 75.1 ml/min BUN/Creatinine Ratio 18.1 (10-20) Glucose 109 H (70-99(Fasting)) mg/dl Calcium 9.7 (8.5-10.1) mg/dl Total Bilirubin 1.3 H (0.2-1.0) mg/dl AST TNP ALT 42 (7-52) U/L Alkaline Phosphatase 66 (34-104) U/L Troponin I High Sens 5.0 (0-20) pg/ml C-Reactive Protein < 0.50 (0-0.5) mg/dl Total Protein 9.4 H (6.0-8.3) gm/dl Albumin 5.2 H (3.4-5.0) gm/dl Globulin 4.2 H (2.5-4.0) gm/dl Albumin/Globulin Ratio 1.2 (0.9-2) Lipase 89 H (11-82) U/L Procalcitonin 10/15/22 10/15/22 Range/Units 14:06 15:12 WBC (4.8-10.8) K/ul RBC (4.70-6.10) M/uL Hgb (14.0-18.0) g/dl Hct (42.0-52.0) % MCV (80.0-100.0) fL MCH (25.0-34.0) pg MCHC (32.0-36.0) g/dL RDW Std Deviation (36.4-46.3) fL RDW Coeff of Gaurang (11.5-14.5) % Plt Count (130-400) K/uL MPV (9.4-12.4) fL Immature Gran % (Auto) % Neut % (Auto) % Lymph % (Auto) % [place] % (Auto) % Eos % (Auto) % Baso % (Auto) % Neut # (Auto) (1.40-6.50) K/uL Lymph # (Auto) (1.2-3.4) K/uL [place] # (Auto) (0.11-0.59) K/uL Eos # (Auto) (0-0.50) K/uL Baso # (Auto) (0-0.2) K/uL Immature Gran # (Auto) (0.01-0.20) K/uL ESR (0-15) mm/hr Sodium (136-145) mmol/L Potassium 4.1 Chloride (98-107) mmol/L Carbon Dioxide (21-32) mmol/L Anion Gap (3-11) BUN (6-23) mg/dl Creatinine (0.6-1.4) mg/dl Est Cr Clr Drug Dosing Est GFR ( Amer) ml/min Est GFR (Non-Af Amer) ml/min BUN/Creatinine Ratio (10-20) Glucose (70-99(Fasting)) mg/dl Calcium (8.5-10.1) mg/dl Total Bilirubin (0.2-1.0) mg/dl AST 17 ALT (7-52) U/L Alkaline Phosphatase (34-104) U/L Troponin I High Sens (0-20) pg/ml C-Reactive Protein (0-0.5) mg/dl Total Protein (6.0-8.3) gm/dl Albumin (3.4-5.0) gm/dl Globulin (2.5-4.0) gm/dl Albumin/Globulin Ratio (0.9-2) Lipase (11-82) U/L Procalcitonin Cancelled Administered Medications Sodium Chloride (Nss 1000ml) 1,000 mls @ 999 mls/hr IV .Q1H1M ONE Stop: 10/15/22 16:51 Last Admin: 10/15/22 15:57 Dose: 999 mls/hr Documented By: RICH Morphine Sulfate (Morphine Sulfate 4 Mg/Ml 1 Ml Carp\\Vial) 4 mg IV Q15M PRN PRN Reason: Pain Stop: 10/29/22 14:00 Last Admin: 10/15/22 15:30 Dose: 4 mg Documented By: Admin: 10/15/22 14:15 Dose: 4 mg Documented By: YNES Discontinued Medications Sodium Chloride (Nss 1000ml) 1,000 mls @ 999 mls/hr IV .Q1H1M STA Stop: 10/15/22 15:01 Last Infusion: 10/15/22 15:08 Dose: 0 mls/hr Documented By: Infusion: 10/15/22 15:05 Dose: 0 mls/hr Documented By: Admin: 10/15/22 14:14 Dose: 999 mls/hr Documented By: YNES Ondansetron HCl (Ondansetron Inj 2 Mg/Ml 2 Ml Vial) 4 mg IV NOW STA Stop: 10/15/22 14:02 Last Admin: 10/15/22 14:15 Dose: 4 mg Documented By: YNES Imaging Data Attestation: I personally reviewed and interpreted this imaging study as follows: My Impression: 1 view chest x-ray and 1 view KUB were obtained in the emergency department. My interpretation is no definite filtrate, no free air, no signs of bowel obstruction. Radiologist's Impression: Chest X-Ray 10/15/22 14:01 XR chest 1V portable CLINICAL HISTORY: pain TECHNIQUE: Single frontal radiograph of the chest was obtained. Comparison: Comparison is made to chest radiograph 09/07/2022 FINDINGS: No lines and tubes are seen. Cardiomegaly is noted. The aortic arch is calcified. The lungs are clear. No evidence of pleural effusion or pneumothorax. IMPRESSION: Cardiomegaly without pulmonary edema. ACT 112: Negative or not required by law. Electronically signed by: Damián Rose M.D. 10/15/2022 2:52 PM KUB X-Ray 10/15/22 14:01 XR KUB/Abdomen 1 view CLINICAL HISTORY: pain , abdominal pain, diarrhea TECHNIQUE: 1 view of the abdomen was obtained. Comparison: Comparison is made to chest radiograph 03/03/2022 FINDINGS: Lung bases are unremarkable. The osseous structures are grossly unremarkable. The bowel gas pattern is nonobstructive. Small stool burden is seen. IMPRESSION: Nonobstructive bowel gas pattern. ACT 112: Negative or not required by law. Electronically signed by: Damián oRse M.D. 10/15/2022 2:52 PM Discharge Plan Visit Data Chief Complaint: Abdominal Pain Stated Complaint: DIARRHEA, ABDOMINAL PAIN ED Provider: Terry Marquez Discharge Problem: Nausea vomiting and diarrhea, Abdominal pain Patient Disposition: Being Evaluated by Hospitalist Forms Stand Alone Forms: [facility] Prescriptions Prescriptions: No Action loperamide 2 mg capsule 2 mg PO QID PRN (Reason: Diarrhea) sucralfate 1 gram tablet 1 g PO QID Rx Instructions: PER PT "JUST STARTED AT NOON". omeprazole 40 mg capsule,delayed release(DR/EC) 40 mg PO DAILY Rx Instructions: JUST PICKED UP, DID NOT START YET Referrals Referrals: Dylan Paredes DO [Primary Care Provider] - Abdominal pain Qualifiers: Abdominal location: generalized Qualified Code(s): R10.84 - Generalized abdominal pain
[2022-10-15 14:48] LABS: Albumin Level 5.2 gm/dl (3.4-5.0); Anion Gap 7 (3-11); Bilirubin,Total 1.3 mg/dl (0.2-1.0); Calcium 9.7 mg/dl (8.5-10.1); Carbon Dioxide 27 mmol/L (21-32); Chloride 102 mmol/L (98-107); Sodium 136 mmol/L (136-145)
--- NOTE | 2022-10-15 14:53 | XRay Report ---
XR KUB/Abdomen 1 view CLINICAL HISTORY: pain , abdominal pain, diarrhea TECHNIQUE: 1 view of the abdomen was obtained. Comparison: Comparison is made to chest radiograph 03/03/2022 FINDINGS: Lung bases are unremarkable. The osseous structures are grossly unremarkable. The bowel gas pattern i s nonobstructive. Small stool burden is seen. IMPRESSION: Nonobstructive bowel gas pattern. ACT 112: Negative or not required by law. Electronically signed by: Damián Rose M.D. 10/15/2022 2:52 PM
--- NOTE | 2022-10-15 14:54 | XRay Report ---
XR chest 1V portable CLINICAL HISTORY: pain TECHNIQUE: Single frontal radiograph of the chest was obtained. Comparison: Comparison is made to chest radiograph 09/07/2022 FINDINGS: No lines and tubes are seen. Cardiomegaly is noted. The aortic arch is calcified. The lungs are clear . No evidence of pleural effusion or pneumothorax. IMPRESSION: Cardiomegaly without pulmonary edema. ACT 112: Negative or not required by law. Electronically signed by: Damián Rose M.D. 10/15/2022 2:52 PM
[2022-10-15 15:12] LABS: Alanine Aminotransferase 42 U/L (7-52); Albumin Globulin Ratio 1.2 (0.9-2); Alkaline Phosphatase 66 U/L (34-104); BUN Creatinine Ratio 18.1 (10-20); Blood Urea Nitrogen 21 mg/dl (6-23); C Reactive Protein < 0.50 mg/dl (0-0.5); Est GFR (Non-African American) 75.1 ml/min; Globulin 4.2 gm/dl (2.5-4.0); Glucose 109 mg/dl (70-99(Fasting)); Lipase 89 U/L (11-82); Total Protein 9.4 gm/dl (6.0-8.3)
[2022-10-15 15:43] LABS: Potassium 4.1 mmol/L (3.5-5.1)
[2022-10-15] MEDS ORDERED: SODIUM CHLORIDE 0.9% 1000ML 1,000 ML IV ONE (15:51)
[2022-10-15] MEDS ORDERED: OPTIRAY 350 100ml IV ONE (17:31)
--- NOTE | 2022-10-15 17:44 | History & Physical Report ---
Date of Service October 15, 2022 Assessment & Plan (1) Nausea vomiting and diarrhea: (2) Abdominal pain: (3) Celiac disease: Plan: Admit to [facility] Patient recently admitted to [facility] 09/07 through 09/09 for abdominal pain and possible aspiration pneumonitis after undergoing EGD/EUS as an outpatient. Patient was treated for 3 days with clindamycin for aspiration pneumonitis. EGD/EUS showed duodenal mucosa with mild villous blunting, increased intraepithelial lymphocytes, lamina propria lymphocytosis and focal foveolar metaplasia concerning for celiac disease. Also showed marked hepatocellular iron deposit. Patient did not make his follow-up appointment with GI and is scheduled to see hematology at the end of the month. TTG IgA and IgA levels drawn and <1.0 and <10.0 respectively. Patient reports not following a gluten-free diet since being home. Will check CT ABD/pelvis Stool study including C. difficile pending Clear liquid diet, symptom management with IVF and as needed antiemetics GI consult (4) Iron overload: Plan: Recent EGD/EUS showed marked hepatocellular iron deposit Patient is scheduled to see hematology again in the month DVT PROPHYLAXIS SCDs I spent a total of 60 minutes coordinating, documenting, and providing care for this patient excluding time spent in the performance of separately billed services. This included personally reviewing all current laboratories and imaging studies, medication reconciliation, outpatient chart review, and discussion with specialists. History of Present Illness Chief Complaint: Nausea, vomiting, diarrhea, abdominal pain Primary Care Provider: Dylan Paredes, 47-year-old male with PMH intellectual disability, C. difficile requiring fecal transplant, and other problems listed below who presents the ED for evaluation of nausea, vomiting, diarrhea, abdominal pain. History obtained from patient (felt to be somewhat unreliable due to underlying intellectual disability), review of outpatient and recent inpatient records. I attempted to call the patient's mother however there was no answer. Patient recently admitted to [facility] 09/07 through 09/09 for abdominal pain and possible aspiration pneumonitis after undergoing EGD/EUS as an outpatient. Patient was treated for 3 days with clindamycin for aspiration pneumonitis. EGD/EUS showed duodenal mucosa with mild villous blunting, increased intraepithelial lymphocytes, lamina propria l ymphocytosis and focal foveolar metaplasia concerning for celiac disease. Also showed marked hepatocellular iron deposit. Patient did not make his follow-up appointment with GI and is scheduled to see hematology at the end of the month. Patient reports feeling well since returning home from the hospital until 630 this morning. Patient reports that he has not been following a gluten-free diet. Patient reports that at 630 this morning, he had sudden onset of nausea, vomiting, abdominal pain, diarrhea. Patient reports several episodes of vomiting and diarrhea at home. Denies hematemesis, coffee-ground emesis, bright red bleeding per rectum, dark tarry stools. Patient does report taking 1 dose of Imodium at home. He denies fevers and chills. No chest pain or shortness of breath. Denies lightheadedness, dizziness, diaphoresis, syncopal events. No urinary symptoms. In the ED, labs show mild leukocytosis with WBC 13 K, platelet 557 K, mildly elevated lipase at 89. CXR and KUB unremarkable. Patient was given IV morphine, IV Zofran, IVF. Allergies Allergy/AdvReac Type Severity Reaction Status Date / Time penicillin V Allergy Intermediate RASH Verified 10/15/22 16:09 Unclassified Drugs Allergy Unknown HX; C-DIFF Uncoded 10/15/22 16:09 COLITIS, MUST AVOID ANTIBIOTICS Home Medications Medication Instructions Recorded Confirmed Type pantoprazole 40 mg tablet,delayed 40 mg PO DAILY 14 days #14 tabs 10/17/22 Rx release (Protonix) Past Med/Surg History Medical History C. 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 Beliefs That Will Affect Care: None Current Living Situation: Significant Other Other Information That Helps Us Care for You: No Feels Safe at Home: Yes Safety Concerns: Feels Safe At This Time Assistive Devices: None Review of Systems Review of Systems: ROS per HPI, all other systems reviewed and negative Physical Exam Constitutional: WD/WN, vitals as above Eyes: PERRL, conjunctivae normal, anicteric sclerae ENMT: external ear and nose normal, oropharynx normal Respiratory: normal respiratory effort, lungs clear to auscultation Cardiovascular: Rate/Rhythm: regular rate and regular rhythm Vessels: normal peripheral pulses Extremities: no edema Gastrointestinal (Abdomen): Inspection/Auscultation: + abdomen distended and normal bowel sounds Percussion/Palpation: + abdomen tender (Epigastric and RUQ) and abdomen soft Musculoskeletal: no cyanosis or clubbing, extremities motor strength 5/5 Skin: no rashes, warm and dry Neurologic: PERRL, EOMI, accommodation nl, no face palsy, no dysarthria Psychiatric: A+Ox3, euthymic affect Insight: + limited insight (Underlying intellectual disability) Results & Data Results & Data ([facility]) Vital Signs (Past 12 Hours) Vital Signs Temp Pulse Resp BP BP Pulse Ox O2 Del Method 10/15/22 17:00 75 17 135/54 L 99 Room Air 10/15/22 16:30 80 18 124/67 99 Room Air 10/15/22 16:00 83 14 137/75 99 Room Air 10/15/22 15:33 83 20 119/71 10/15/22 15:08 73 19 120/68 99 Room Air 10/15/22 15:26 79 10/15/22 14:08 76 16 99 Room Air 10/15/22 14:08 16 104/70 99 Room Air 10/15/22 13:37 36.5 C 96 H 16 136/94 98 Room Air Laboratory Results Short CBC 10/15/22 Range/Units 14:06 WBC 13.21 H (4.8-10.8) K/ul Hgb 17.2 (14.0-18.0) g/dl Hct 49.8 (42.0-52.0) % Plt Count 557 H (130-400) K/uL BMP 10/15/22 10/15/22 14:06 15:12 Sodium 136 Potassium TNP 4.1 Chloride 102 Carbon Dioxide 27 BUN 21 Creatinine 1.16 Glucose 109 H Calcium 9.7 Liver Function 10/15/22 10/15/22 Range/Units 14:06 15:12 Total Bilirubin 1.3 H (0.2-1.0) mg/dl AST TNP 17 ALT 42 (7-52) U/L Alkaline Phosphatase 66 (34-104) U/L Albumin 5.2 H (3.4-5.0) gm/dl Diagnostic Findings Chest X-Ray 10/15/22 14:01 XR chest 1V portable CLINICAL HISTORY: pain TECHNIQUE: Single frontal radiograph of the chest was obtained. Comparison: Comparison is made to chest radiograph 09/07/2022 FINDINGS: No lines and tubes are seen. Cardiomegaly is noted. The aortic arch is calcified. The lungs are clear. No evidence of pleural effusion or pneumothorax. IMPRESSION: Cardiomegaly without pulmonary edema. ACT 112: Negative or not required by law. Electronically signed by: Damián Rose M.D. 10/15/2022 2:52 PM KUB X-Ray 10/15/22 14:01 XR KUB/Abdomen 1 view CLINICAL HISTORY: pain , abdominal pain, diarrhea TECHNIQUE: 1 view of the abdomen was obtained. Comparison: Comparison is made to chest radiograph 03/03/2022 FINDINGS: Lung bases are unremarkable. The osseous structures are grossly unremarkable. The bowel gas pattern is nonobstructive. Small stool burden is seen. IMPRESSION: Nonobstructive bowel gas pattern. ACT 112: Negative or not required by law. Electronically signed by: Damián Rose M.D. 10/15/2022 2:52 PM Code Status & VTE Plan VTE Prophylaxis Plan VTE Prophylaxis will be ordered: Yes Supervising Physician Co-Signing Physician Notes Pt seen and examined by me, care coordinated w/ [facility], pls refer to her note above for further detail. 47 yo M w/intellectual disability, hx of C. difficile requiring fecal transplant, who presents for evaluation of nausea, vomiting, diarrhea, abdominal pain. Pt reports he ate salami sandwich at 2 am after his work and that's the last meal he had. He developed n/v/d some hrs later. Currently feeling better and in NAD. Girlfriend present at the bedside. Patient recently admitted to [facility] 09/07 through 09/09 for abdominal pain and possible aspiration pneumonitis after undergoing EGD/EUS as an outpatient. Patient was treated for 3 days with clindamycin for aspiration pneumonitis. EGD/EUS showed duodenal mucosa with mild villous blunting, increased intraepithelial lymphocytes, lamina propria lymphocytosis and focal foveolar metaplasia concerning for celiac disease. Also showed marked hepatocellular iron deposit. Patient did not make his follow-up appointment with GI and is scheduled to see hematology at the end of the month. Currently pt is laying in bed, awake alert able to answer simple questions appropriately. He is in NAD. Breathing comfortably on RA. Lungs are clear to auscultation. Heart sounds regular. Abdomen soft, obese, mildly tender to palp. at epigastric and RUQ. No le edema, pt moves extremities. So far imaging unremarkable. Stool pcr pending. CT abd./pelvis pending. Pt may have developed gastroenteritis. If current studies negative, will further discuss w/ GI given his recent hx and evaluation w/ GI. MD Je (2) Abdominal pain Abdominal location: generalized Qualified Code(s): R10.84 - Generalized abdominal pain
--- NOTE | 2022-10-15 18:02 | CT Scan Report ---
CT abd pelvis IV con only CLINICAL HISTORY: intractable N/V, epigastric and RUQ pain TECHNIQUE: Helical axial images of the abdomen and pelvis were obtained and displayed. Automated dose lowering techniques and/or adjustment according to patient size were utilized for this exam. This e xam was performed with intravenous contrast. CT DOSE: 922.79 mGy.cm COMPARISON: Comparison is made to CT abdomen pelvis 09/07/2022 FINDINGS: Lower chest: Bibasilar atelectasis versus scarring is seen. Cardiomegaly is seen. Liver: Unremarkable. No focal lesions are seen. Gallbladder and biliary tree: No calcified gallstones. Normal caliber wall. No intra- or extrahepatic biliary ductal dilation. Pancreas: Unremarkable, no focal lesions. Spleen: Splenomegaly is seen with a craniocaudal dimension of 16 cm. Adrenals: Unremarkable. Kidneys and ureters: Unremarkable. Bladder: Limited evaluation due to underdistention. Reproductive organs: Unremarkable. Bowel: The appendix is normal. There is a small hiatal hernia. Endoscopy clip is incidentally seen in the right lower quadrant. This is unchanged from prior exam. Lymph nodes Retroperitoneal: Unremarkable. Pelvic: Unremarkable. Mesenteric: Unremarkable. Peritoneum: Normal. Vessels: Unremarkable. Abdominal wall: Bilateral fat-containing inguinal hernias are seen. Bones: Degenerative changes in the visualized spine. IMPRESSION: 1. No acute abnormalities. In particular no evidence of pancreatitis or cholecystitis. The appendix is normal. 2. Redemonstration of splenomegaly. ACT 112: Negative or not required by law. Electronically signed by: Damián Rose M.D. 10/15/2022 6:00 PM
[2022-10-15 18:17] LABS: Appearance Urine Clear (Clear); Bacteria Urine Automated Negative (Negative); Bilirubin Urine Negative (Negative); Blood Urine Negative (Negative); Color Urine Dark Yellow; Glucose Urine UA Negative (Negative); Ketones Urine Trace (Negative); Leukocyte Esterase Urine Trace (Negative); Nitrite Urine Negative (Negative); Protein Urine 1+ (Negative); RBC Urine Automated 0-4 /hpf (0-4); Specific Gravity Urine 1.033 (1.000-1.030); Urobilinogen Urine Negative (Negative); pH Urine 5.5 (4.5-7.5)
[2022-10-15 18:45] LABS: Amphetamines+Metham, Urine Neg (Neg); Barbiturates, Urine Neg (Neg); Benzodiazepine, Urine Neg (Neg); Cocaine, Urine Neg (Neg); MDMA (Ecstacy), Urine Neg (Neg); Methadone, Urine Neg (Neg); Opiate, Urine Pos (Neg); Phencyclidine, Urine Neg (Neg)
[2022-10-15 18:49] LABS: Mucus Urine Present (None Prsent)
[2022-10-15] MEDS: SODIUM CHLORIDE 0.9% 1000ML 1,000 ML IV SCH (19:30)
[2022-10-15] MEDS: ACETAMINOPHEN 325 MG TAB PO PRN (21:46)
[2022-10-16] MEDS: MoRPHine SULFATE 4 MG/ML 1 ML CARP\\VIAL IV PRN ×4 (01:52→20:04)
[2022-10-16] MEDS: ONDANSETRON INJ 2 MG/ML 2 ML VIAL IV PRN (01:56)
[2022-10-16] MEDS ORDERED: LOPERAMIDE HCL 2 MG CAP PO STA (03:28)
[2022-10-16] MEDS: SODIUM CHLORIDE 0.9% 1000ML 1,000 ML IV SCH ×3 (03:35→20:04)
[2022-10-16 04:34] LABS: Adenovirus F 40/41 PCR Not Detected (NotDetected); Campylobacter PCR Not Detected (NotDetected); Cryptosporidium PCR Not Detected (NotDetected); Cyclospora cayetanensis PCR Not Detected (NotDetected); Entamoeba histolytica PCR Not Detected (NotDetected); Enteroaggregative E.coli(EAEC) Not Detected (NotDetected); Enteropathogenic E.coli (EPEC) Not Detected (NotDetected); Enterotoxigenic E.coli (ETEC) Not Detected (NotDetected); Giardia lamblia PCR Not Detected (NotDetected); Plesiomonas shigelloides PCR Not Detected (NotDetected); Rotavirus A PCR Not Detected (NotDetected); Salmonella PCR Not Detected (NotDetected); Sapovirus PCR Not Detected (NotDetected); Shiga-like Toxin E.coli (STEC) Not Detected (NotDetected); Shigella/Enteroinvasive E.coli Not Detected (NotDetected); Vibrio cholerae PCR Not Detected (NotDetected); Vibrio species PCR Not Detected (NotDetected); Yersinia enterocolitica PCR Not Detected (NotDetected)
[2022-10-16 04:44] LABS: Astrovirus PCR DETECTED (NotDetected); Norovirus GI/GII PCR DETECTED (NotDetected)
[2022-10-16 07:39] LABS: Albumin Globulin Ratio 1.3 (0.9-2); BUN Creatinine Ratio 19.4 (10-20); Bilirubin,Total 1.5 mg/dl (0.2-1.0); Calcium 8.4 mg/dl (8.5-10.1); Creatinine Clr Calc Pharmacy 102.1 ml/min; Est GFR (African American) 106.7 ml/min; Est GFR (Non-African American) 92.1 ml/min; Globulin 3.2 gm/dl (2.5-4.0); Potassium 3.7 mmol/L (3.5-5.1); Total Protein 7.2 gm/dl (6.0-8.3)
[2022-10-16 08:33] LABS: Hematocrit (blood only) 41.3 % (42.0-52.0); Hemoglobin 14.1 g/dl (14.0-18.0); Mean Corpuscular Hemoglobin 29.9 pg (25.0-34.0); Mean Corpuscular Hgb Conc 34.1 g/dL (32.0-36.0); Mean Corpuscular Volume 87.5 fL (80.0-100.0); Mean Platelet Volume 8.9 fL (9.4-12.4); Platelet Count 463 K/uL (130-400); RDW Coefficient of Variation 14.4 % (11.5-14.5); RDW Standard Deviation 46.5 fL (36.4-46.3); Red Blood Count 4.72 M/uL (4.70-6.10); White Blood Count 6.55 K/ul (4.8-10.8)
[2022-10-16] MEDS: ACETAMINOPHEN 325 MG TAB PO PRN (09:39)
--- NOTE | 2022-10-16 12:43 | Gastrointestinal Consultation ---
Date of Consultation October 16, 2022 Supervising Physician Co-Signing Physician Notes Nausea and vomiting at this time could be related to celiac, would encourage a gluten free diet. Recent workup for iron findings on liver biopsy is likely related to underlying fatty liver. Continue current med mgmt for nausea/vomiting. Consider GES. would try liquids and see how he does, if he tolerates that would do low reisude small frequent meals as next step. History of Present Illness Reason for Consultation: nausea vomiting Requesting Physician: Lilibeth Flores Attending Physician: Italo Dave MD History of Present Illness 47 yo male followed by Moreno VELASCO, seen in consult recently within the last 2 months for n/v. Underwent egd/eus with fingings of celiac disease and iron deposition on liver biopsy however ferritin is high (400-500 range) on outpatient labs with normal iron studies and also normal hfe gene testing. He is noted to have a fatty liver on abd vinay imaging. he is not compliant with a gluten free diet. Admitted again now for nausea/vomiting. Reports this am he is still having the same symptoms but no overt vomiting noted, no bin near his bed, denies any blood in his vomit when it occurs. No concomitant weight loss or anemia. Slightly intellectual disability noted on chart review, friend is at his bedside. Allergies Allergy/AdvReac Type Severity Reaction Status Date / Time penicillin V Allergy Intermediate RASH Verified 10/15/22 16:09 Unclassified Drugs Allergy Unknown HX; C-DIFF Uncoded 10/15/22 16:09 COLITIS, MUST AVOID ANTIBIOTICS Home Medications Medication Instructions Recorded Confirmed Type No Known Home Medications 10/15/22 10/15/22 History Patient History Medical History C. 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 Beliefs That Will Affect Care: None Current Living Situation: Significant Other Other Information That Helps Us Care for You: No Feels Safe at Home: Yes Safety Concerns: Feels Safe At This Time Assistive Devices: None Review of Systems Review of Systems: All systems reviewed & are unremarkable except as noted in HPI & below Physical Exam Physical Exam: Well nourished obese male in nad ENMT: external ear and nose normal, oropharynx normal Respiratory: Normal respirations Gastrointestinal (Abdomen): soft nt nd Results & Data ([facility]) Vital Signs (Past 12 Hours) Vital Signs Temp Pulse Resp BP Pulse Ox O2 Del Method 10/16/22 09:39 Room Air 10/16/22 11:33 36.6 C 62 17 121/78 Room Air 10/16/22 07:39 36.5 C 60 18 128/86 97 Room Air Laboratory Results labs are essentially normal last egd/eus reviewed outpatient iron studies, ferritin, hfe gene testing reviewed, gustavo mclean reviewed
--- NOTE | 2022-10-16 14:32 | Electrocardiogram Report ---
Test Reason : Blood Pressure : / mmHG Vent. Rate : 081 BPM Atrial Rate : 081 BPM P-R Int : 148 ms QRS Dur : 090 ms QT Int : 396 ms P-R-T Axes : 046 043 028 degrees QTc Int : 460 ms Normal sinus rhythm Normal ECG When compared with ECG of 13-JUN-2022 21:26, No significant change was found Confirmed by Austin Pelayo ([id number]) on 10/16/2022 2:32:02 PM Referred By: REFERRED SELF Confirmed By:Austin Pealyo
--- NOTE | 2022-10-16 15:24 | Hospitalist Progress Note ---
Date of Service October 16, 2022 Assessment & Plan (1) Nausea vomiting and diarrhea: (2) Abdominal pain: (3) Celiac disease: Plan: per admitting service notes with addendum: Admit to [facility] Patient recently admitted to [facility] 09/07 through 09/09 for abdominal pain and possible aspiration pneumonitis after undergoing EGD/EUS as an outpatient. Patient was treated for 3 days with clindamycin for aspiration pneumonitis. EGD/EUS showed duodenal mucosa with mild villous blunting, increased intraepithelial lymphocytes, lamina propria lymphocytosis and focal foveolar metaplasia concerning for celiac disease. Also showed marked hepatocellular iron deposit. Patient did not make his follow-up appointment with GI and is scheduled to see hematology at the end of the month. TTG IgA and IgA levels drawn and <1.0 and <10.0 respectively. Patient reports not following a gluten-free diet since being home. Will check CT ABD/pelvis Stool study including C. difficile pending Clear liquid diet, symptom management with IVF and as needed antiemetics GI consult 10/16 stool PCR: (+) Norovirus and Astrovirus C diff test: negative repeat C diff test: pending continue supportive care IV fluids PRN Morphine Protonix daily monitor closely GI consulted- no procedures recommended (4) Iron overload: Plan: Recent EGD/EUS showed marked hepatocellular iron deposit Patient is scheduled to see hematology again in the month DVT PROPHYLAXIS SCDs Disposition pending anticipat d/c home when medically stable Admission and Anticipated Discharge Date Admission Date: October 15, 2022 Subjective ff up for gastroenteritis, etc seen resting in bed, comfortable significant other at the bedside visiting states he has had no diarrhea since last night still having occasional sharp, epigastric pain- relieved by morphine had nausea early this am would like to try soft diet Review of Systems Review of Systems: all noted and negative except for above Physical Exam Physical Exam: General- oriented x 3, not in distress, speaks in sentences with no effort or accessory muscle use Eyes- anicteric Neck- no JVD Lungs- clear breath sounds bilaterally, no rales/wheezes Heart- normal rate, regular rhythm; no murmurs Abdomen- normal bowel sounds, nondistended, soft, mild epigastric tenderness Extremities- no pretibial edema, no calf tenderness Neuro- alert, oriented x 3; no gross focal neurologic deficits Skin- warm & dry Results & Data Results & Data ([facility]) Vital Signs (Past 12 Hours) Vital Signs Temp Pulse Resp BP Pulse Ox O2 Del Method 10/16/22 09:39 Room Air 10/16/22 11:33 36.6 C 62 17 121/78 Room Air 10/16/22 07:39 36.5 C 60 18 128/86 97 Room Air all noted and reviewed including below (2) Abdominal pain Abdominal location: generalized Qualified Code(s): R10.84 - Generalized abdominal pain
[2022-10-16] MEDS: PANTOprazole 40 MG in SYRINGE 0 ML IV SCH (20:04)
[2022-10-17] MEDS: MELATONIN 3 MG TAB PO PRN ×2 (01:17→23:04)
[2022-10-17] MEDS: SODIUM CHLORIDE 0.9% 1000ML 1,000 ML IV SCH ×3 (04:19→22:07)
[2022-10-17 07:59] LABS: Basophils # (auto) 0.03 K/uL (0-0.2); Basophils % (auto) 0.7 %; Eosinophils # (auto) 0.02 K/uL (0-0.50); Eosinophils % (auto) 0.5 %; Hematocrit (blood only) 36.1 % (42.0-52.0); Hemoglobin 12.1 g/dl (14.0-18.0); Immature Granulocytes # (auto) 0.04 K/uL (0.01-0.20); Immature Granulocytes % (auto) 0.9 %; Lymphocytes # (auto) 0.78 K/uL (1.2-3.4); Lymphocytes % (auto) 18.1 %; Mean Corpuscular Hemoglobin 29.2 pg (25.0-34.0); Mean Corpuscular Hgb Conc 33.5 g/dL (32.0-36.0); Mean Platelet Volume 9.3 fL (9.4-12.4); Monocytes # (auto) 0.44 K/uL (0.11-0.59); Monocytes % (auto) 10.2 %; Neutrophils # (auto) 3.01 K/uL (1.40-6.50); Neutrophils % (auto) 69.6 %; Platelet Count 334 K/uL (130-400); RDW Coefficient of Variation 14.2 % (11.5-14.5); RDW Standard Deviation 45.3 fL (36.4-46.3); Red Blood Count 4.15 M/uL (4.70-6.10); White Blood Count 4.32 K/ul (4.8-10.8)
[2022-10-17 08:11] LABS: Calcium 8.2 mg/dl (8.5-10.1); Creatinine Clr Calc Pharmacy 111.2 ml/min; Est GFR (African American) 118.3 ml/min; Est GFR (Non-African American) 102.1 ml/min; Potassium 3.7 mmol/L (3.5-5.1)
--- NOTE | 2022-10-17 09:14 | Gastroenterology Progress Note ---
Date of Service October 17, 2022 Assessment & Plan (1) Intellectual disability: (2) Abdominal pain: (3) Nausea vomiting and diarrhea: (4) Norovirus: (5) Astrovirus gastroenteritis: Plan 47 y/o male w/ h/o intellectual disability, followed by OP GI with chronic abd pain, recent EGD/EUS w/ bx suspicious for Celiac, iron deposition (HFE DNA neg, ferritin 400-500), and been referred to heme/onc, now admitted w/ abd pain, n/v/d, and found to have stool + for Norovirus as well as astrovirus. He has had no further nausea, vomiting, diarrhea and is tolerating his diet. He is not compliant with recommended gluten free diet. - As he has viral illness causing his acute symptoms, would recommend continuing supportive care as you are doing, with hydration, bland diet as tolerated - D/w pt there is no specific therapy or cure but symptoms improve with conservative mgmt - Pt has chronic abd pain at baseline that has been extensively evaluated and is likely to continue - Would avoid narcotics in the setting of abd pain - Would recommend gluten free diet; consider detector car operator consult to help with this - He can f/u with his OP providers after discharge and would ensure heme/onc f/u as well - GI will sign off, please call with questions or change in pt condition Thank you for allowing us to participate in the care of this patient. Please call with any acute changes, questions or concerns. Please see addendum below with additional recommendation from my supervising physician. Admission and Anticipated Discharge Date Admission Date: October 16, 2022 Supervising Physician Co-Signing Physician Notes I have personally seen and evaluated the patient on 10/17/2022 with Colleen Barker PA-C and agree with her plan and recommendations. 47 yo male [facility] for chronic abdominal pain seen in consult recently within the last 2 months for n/v. Underwent egd/eus with fingings of celiac disease and iron deposition on liver biopsy however ferritin is high (400-500 range) on outpatient labs with normal iron studies and also normal hfe gene testing. He is noted to have a fatty liver on abd US imaging. He is non- compliant with a gluten free diet. Has chronic abdominal pain at baseline and has had multiple admissions in the past for this. This AM reports he still has ongoing abdominal pain but is tolerating a PO diet. His stool studies were + for astrovirus and norovirus. Diarrhea has resolved per his report and only 1 BM. No nausea or vomiting only complaint is baseline abdominal pain. Requesting morphine. Recommend symptomatic care. Med management for nausea/vomiting as needed. Diarrhea has resolved and will be self-limiting given + viral stool studies. He needs to be complaint with a strict gluten free diet as an outpatient which he admits he is not compliant with. He has chronic abdominal pain at baseline and this has been extensively evaluated. Would avoid giving ongoing opiates but will defer that to primary team. Would not recommend GES at this time as he has been getting opiates and this slows gastric motility so study would not be accurate. Continue gluten free diet. Physical exam: abdomen soft, non-tender with palpation but reports "i feel you are pressing", normoactive bowel sounds, no LE edema, AAOx3, RRR no murmurs, CTA bilaterally. GI will sign off but please call back with questions. He can follow up outpatient. Nicole Moore, Gastroenterology and Hepatology Subjective Patient seen and examined, chart reviewed. No acute events overnight. No further diarrhea, nausea, vomiting since yesterday. Pt tolerating diet. Continues w/ intermittent abd pain that he has on a chronic basis at baseline. Denies melena, hematochezia, hematemsis, CP, SOB. Review of Systems Review of Systems: All systems reviewed & are unremarkable except as noted in HPI & below Physical Exam Constitutional: well developed, well nourished and comfortable; no acute di stress Eyes: Sclera anicteric, no conjunctival injection ENMT: moist mucous membranes, no pallor Neck: trachea midline supple Respiratory: normal respiratory effort, lungs clear to auscultation Cardiovascular: RRR, no murmur, no edema Gastrointestinal (Abdomen): normal bowel sounds, soft, nontender, no hepatosplenomegaly Inspection/Auscultation: abdomen not distended Skin: no rashes, warm and dry Neurologic: awake and alert, no obvious focal neuro deficit Psychiatric: normal mood and affect Results & Data ([facility]) Vital Signs (Past 12 Hours) Vital Signs Temp Pulse Resp BP Pulse Ox O2 Del Method 10/17/22 07:20 36.7 C 57 L 16 100/63 97 Room Air Laboratory Results 03/06/23 03/06/23 Range/Units 07:09 07:09 WBC 4.32 L (4.8-10.8) K/ul RBC 4.15 L (4.70-6.10) M/uL Hgb 12.1 L (14.0-18.0) g/dl Hct 36.1 L (42.0-52.0) % MCV 87.0 (80.0-100.0) fL MCH 29.2 (25.0-34.0) pg MCHC 33.5 (32.0-36.0) g/dL RDW Std Deviation 45.3 (36.4-46.3) fL RDW Coeff of Gaurang 14.2 (11.5-14.5) % Plt Count 334 (130-400) K/uL MPV 9.3 L (9.4-12.4) fL Immature Gran % (Auto) 0.9 % Neut % (Auto) 69.6 % Lymph % (Auto) 18.1 % Mcpherson % (Auto) 10.2 % Eos % (Auto) 0.5 % Baso % (Auto) 0.7 % Neut # (Auto) 3.01 (1.40-6.50) K/uL Lymph # (Auto) 0.78 L (1.2-3.4) K/uL Mcpherson # (Auto) 0.44 (0.11-0.59) K/uL Eos # (Auto) 0.02 (0-0.50) K/uL Baso # (Auto) 0.03 (0-0.2) K/uL Immature Gran # (Auto) 0.04 (0.01-0.20) K/uL Sodium 135 L (136-145) mmol/L Potassium 3.7 (3.5-5.1) mmol/L Chloride 106 (98-107) mmol/L Carbon Dioxide 28 (21-32) mmol/L Anion Gap 1 L (3-11) BUN 9 (6-23) mg/dl Creatinine 0.90 (0.6-1.4) mg/dl Est Cr Clr Drug Dosing 111.2 ml/min Est GFR ( Amer) 118.3 ml/min Est GFR (Non-Af Amer) 102.1 ml/min BUN/Creatinine Ratio 10.0 (10-20) Glucose 101 H (70-99(Fasting)) mg/dl Calcium 8.2 L (8.5-10.1) mg/dl (2) Abdominal pain Abdominal location: generalized Qualified Code(s): R10.84 - Generalized abdominal pain
[2022-10-17] MEDS: PANTOprazole 40 MG in SYRINGE 0 ML IV SCH ×2 (09:56→22:00)
[2022-10-17] MEDS: ACETAMINOPHEN 325 MG TAB PO PRN ×2 (09:59→16:30)
--- NOTE | 2022-10-17 15:29 | Hospitalist Progress Note ---
Date of Service October 17, 2022 Assessment & Plan (1) Nausea vomiting and diarrhea: (2) Abdominal pain: (3) Celiac disease: Plan: per admitting service notes with addendum: Admit to [facility] Patient recently admitted to [facility] 09/07 through 09/09 for abdominal pain and possible aspiration pneumonitis after undergoing EGD/EUS as an outpatient. Patient was treated for 3 days with clindamycin for aspiration pneumonitis. EGD/EUS showed duodenal mucosa with mild villous blunting, increased intraepithelial lymphocytes, lamina propria lymphocytosis and focal foveolar metaplasia concerning for celiac disease. Also showed marked hepatocellular iron deposit. Patient did not make his follow-up appointment with GI and is scheduled to see hematology at the end of the month. TTG IgA and IgA levels drawn and <1.0 and <10.0 respectively. Patient reports not following a gluten-free diet since being home. Will check CT ABD/pelvis Stool study including C. difficile pending Clear liquid diet, symptom management with IVF and as needed antiemetics GI consult 10/17 stool PCR: (+) Norovirus and Astrovirus C diff test: negative repeat C diff test: pending Improving continue supportive care IV fluids Protonix daily Dietitian consulted for gluten-free diet monitor closely GI consulted- no procedures recommended (4) Iron overload: Plan: Recent EGD/EUS showed marked hepatocellular iron deposit Patient is scheduled to see hematology again in the month DVT PROPHYLAXIS SCDs Disposition pending anticipate d/c home when medically stable Admission and Anticipated Discharge Date Admission Date: October 16, 2022 Subjective Follow-up for viral gastroenteritis, etc. Seen resting in bed Comfortable, In good spirits States he feels fine overall No diarrhea today Abdominal pain mostly epigastric, intermittent No other symptoms Review of Systems Review of Systems: all noted and negative except for above Physical Exam Physical Exam: General- oriented x 3, not in distress, speaks in sentences with no effort or accessory muscle use Eyes- anicteric Neck- no JVD Lungs- clear BS BL Heart- normal rate, regular rhythm; no murmurs Abdomen- normal bowel sounds, nondistended, soft, nontender Extremities- no pretibial edema, no calf tenderness Neuro- alert, oriented x 3; no gross focal neurologic deficits Skin- warm & dry Results & Data Results & Data ([facility]) Vital Signs (Past 12 Hours) Vital Signs Temp Pulse Pulse Resp BP Pulse Ox O2 Del Method 10/17/22 15:19 36.8 C 58 L 16 111/63 100 Room Air 10/17/22 10:00 Room Air 10/17/22 07:20 36.7 C 57 L 16 100/63 97 Room Air all noted and reviewed including below (2) Abdominal pain Abdominal location: generalized Qualified Code(s): R10.84 - Generalized abdominal pain
[2022-10-18] MEDS: ACETAMINOPHEN 325 MG TAB PO PRN ×2 (03:00→07:47)
[2022-10-18] MEDS: ONDANSETRON INJ 2 MG/ML 2 ML VIAL IV PRN ×2 (03:00→11:34)
[2022-10-18] MEDS ORDERED: LOPERAMIDE HCL 2 MG CAP PO STA (03:04)
[2022-10-18] MEDS: PANTOprazole 40 MG in SYRINGE 0 ML IV SCH ×2 (07:48→21:10)
[2022-10-18] MEDS: CHOLESTYRAMINE LIGHT 4 GM PKT PO SCH ×2 (12:03→21:16)
[2022-10-18] MEDS: SODIUM CHLORIDE 0.9% 1000ML 1,000 ML IV SCH (12:08)
--- NOTE | 2022-10-18 13:24 | Hospitalist Progress Note ---
Date of Service October 18, 2022 Assessment & Plan (1) Nausea vomiting and diarrhea: (2) Abdominal pain: (3) Celiac disease: Plan: per admitting service notes with addendum: Admit to [facility] Patient recently admitted to [facility] 09/07 through 09/09 for abdominal pain and possible aspiration pneumonitis after undergoing EGD/EUS as an outpatient. Patient was treated for 3 days with clindamycin for aspiration pneumonitis. EGD/EUS showed duodenal mucosa with mild villous blunting, increased intraepithelial lymphocytes, lamina propria lymphocytosis and focal foveolar metaplasia concerning for celiac disease. Also showed marked hepatocellular iron deposit. Patient did not make his follow-up appointment with GI and is scheduled to see hematology at the end of the month. TTG IgA and IgA levels drawn and <1.0 and <10.0 respectively. Patient reports not following a gluten-free diet since being home. Will check CT ABD/pelvis Stool study including C. difficile pending Clear liquid diet, symptom management with IVF and as needed antiemetics GI consult 10/18 stool PCR: (+) Norovirus and Astrovirus C diff test: negative repeat C diff test: Negative Reports having diarrhea overnight Nonadherence with gluten-free diet likely contributing to patient's symptoms Again stressed with patient regarding adherence to gluten-free diet, otherwise symptoms will continue patient verbalized understanding and agreement Improving continue supportive care IV fluids Protonix daily Add cholestyramine twice daily for diarrhea Dietitian consulted for gluten-free diet monitor closely GI consulted- no procedures recommended (4) Iron overload: Plan: Recent EGD/EUS showed marked hepatocellular iron deposit Patient is scheduled to see hematology again in the month DVT PROPHYLAXIS SCDs Disposition pending anticipate d/c home when medically stable, likely tomorrow Admission and Anticipated Discharge Date Admission Date: October 16, 2022 Subjective Follow-up for a viral gastroenteritis, etc. Seen resting in bed, comfortable, smiling, not in distress Patient reports having watery diarrhea again overnight Also having intermittent abdominal cramping Had some nausea this morning No other new symptoms Reported by RN that patient has been going to the [employer] to get food Review of Systems Review of Systems: all noted and negative except for above Physical Exam Physical Exam: General- oriented x 3, not in distress, speaks in sentences with no effort or accessory muscle use Eyes- anicteric Neck- no JVD Lungs- clear breath sounds bilaterally, no rales/wheezes Heart- normal rate, regular rhythm; no murmurs Abdomen- normal bowel sounds, nondistended, soft, mild epigastric tenderness Extremities- no pretibial edema, no calf tenderness Neuro- alert, oriented x 3; no gross focal neurologic deficits Skin- warm & dry Results & Data Results & Data ([facility] [place]) Vital Signs (Past 12 Hours) Vital Signs Temp Pulse Resp BP Pulse Ox O2 Del Method 10/18/22 07:07 36.8 C 54 L 18 127/68 100 Room Air all noted and reviewed including below (2) Abdominal pain Abdominal location: generalized Qualified Code(s): R10.84 - Generalized abdominal pain
[2022-10-18] MEDS: MELATONIN 3 MG TAB PO PRN (23:29)
[2022-10-19] MEDS: SODIUM CHLORIDE 0.9% 1000ML 1,000 ML IV SCH (04:13)
[2022-10-19] MEDS: PANTOprazole 40 MG in SYRINGE 0 ML IV SCH (07:30)
[2022-10-19] MEDS: CHOLESTYRAMINE LIGHT 4 GM PKT PO SCH (07:31)
[2022-10-19 10:22] LABS: Codeine Urine NEGATIVE ng/mL (<50); Hydrocodone Urine NEGATIVE ng/mL (<50); Hydromor Urine NEGATIVE ng/mL (<50); Morphine Urine 8030 ng/mL (<50); Norhydrocodone Conf Ur NEGATIVE ng/mL (<50); Noroxycodone Urine NEGATIVE ng/mL (<50); Oxycodone Urine NEGATIVE ng/mL (<50); Oxymorph Urine NEGATIVE ng/mL (<50)
--- NOTE | 2022-10-19 18:03 | Hospitalist Progress Note ---
Date of Service October 19, 2022 Assessment & Plan (1) Nausea vomiting and diarrhea: (2) Abdominal pain: (3) Celiac disease: Plan: per admitting service notes with addendum: Admit to [facility] Patient recently admitted to [facility] 09/07 through 09/09 for abdominal pain and possible aspiration pneumonitis after undergoing EGD/EUS as an outpatient. Patient was treated for 3 days with clindamycin for aspiration pneumonitis. EGD/EUS showed duodenal mucosa with mild villous blunting, increased intraepithelial lymphocytes, lamina propria lymphocytosis and focal foveolar metaplasia concerning for celiac disease. Also showed marked hepatocellular iron deposit. Patient did not make his follow-up appointment with GI and is scheduled to see hematology at the end of the month. TTG IgA and IgA levels drawn and <1.0 and <10.0 respectively. Patient reports not following a gluten-free diet since being home. Will check CT ABD/pelvis Stool study including C. difficile pending Clear liquid diet, symptom management with IVF and as needed antiemetics GI consult 10/19 stool PCR: (+) Norovirus and Astrovirus C diff test: negative repeat C diff test: Negative Nonadherence with gluten-free diet likely contributing to patient's symptoms Again stressed with patient regarding adherence to gluten-free diet, otherwise symptoms will continue patient verbalized understanding and agreement Patient given supportive care IV fluids Protonix daily Add cholestyramine twice daily for diarrhea Symptoms resolved Dietitian consulted for gluten-free diet GI consulted- no procedures recommended (4) Iron overload: Plan: Recent EGD/EUS showed marked hepatocellular iron deposit Patient is scheduled to see hematology again in the month DVT PROPHYLAXIS SCDs Disposition DC home Follow-up with PCP in 1 week Admission and Anticipated Discharge Date Admission Date: October 16, 2022 Subjective Follow-up for viral gastroenteritis, etc. Seen resting in bed, comfortable, not in distress States he feels fine overall Diarrhea resolved, no abdominal pain Tolerating diet with no problems States he is ready and would like to be discharged today Review of Systems Review of Systems: all noted and negative except for above Physical Exam Physical Exam: General- oriented x 3, not in distress, speaks in sentences with no effort or accessory muscle use Eyes- anicteric Neck- no JVD Lungs- clear breath sounds bilaterally, no crackles or wheezing Heart- normal rate, regular rhythm; no murmurs Abdomen- normal bowel sounds, nondistended, soft, nontender Extremities- no pretibial edema, no calf tenderness Neuro- alert, oriented x 3; no gross focal neurologic deficits Skin- warm & dry Results & Data Results & Data ([facility]) Vital Signs (Past 12 Hours) Vital Signs Temp Pulse Pulse Pulse Resp BP BP 10/19/22 14:20 36.9 C 62 57 L 61 18 111/63 120/77 10/19/22 07:16 36.9 C 61 18 120/77 Pulse Ox O2 Del Method 10/19/22 14:20 98 10/19/22 07:16 98 Room Air all noted and reviewed including below (2) Abdominal pain Abdominal location: generalized Qualified Code(s): R10.84 - Generalized abdominal pain
--- NOTE | 2022-10-19 18:05 | Discharge Summary ---
Discharge Summary Date of Service October 19, 2022 Notes For Next Care Provider Medication Changes From Visit Protonix 40 mg p.o. daily Admission HPI Per Admitting Provider 47-year-old male with PMH intellectual disability, C. difficile requiring fecal transplant, and other problems listed below who presents the ED for evaluation of nausea, vomiting, diarrhea, abdominal pain. History obtained from patient (felt to be somewhat unreliable due to underlying intellectual disability), review of outpatient and recent inpatient records. I attempted to call the patient's mother however there was no answer. Patient recently admitted to [facility] 09/07 through 09/09 for abdominal pain and possible aspiration pneumonitis after undergoing EGD/EUS as an outpatient. Patient was treated for 3 days with clindamycin for aspiration pneumonitis. EGD/EUS showed duodenal mucosa with mild villous blunting, increased intraepithelial lymphocytes, lamina propria lymphocytosis and focal foveolar metaplasia concerning for celiac disease. Also showed marked hepatocellular iron deposit. Patient did not make his follow-up appointment with GI and is scheduled to see hematology at the end of the month. Patient reports feeling well since returning home from the hospital until 630 this morning. Patient reports that he has not been following a gluten-free diet. Patient reports that at 630 this morning, he had sudden onset of nausea, vomiting, abdominal pain, diarrhea. Patient reports several episodes of vomiting and diarrhea at home. Denies hematemesis, coffee-ground emesis, bright red bleeding per rectum, dark tarry stools. Patient does report taking 1 dose of Imodium at home. He denies fevers and chills. No chest pain or shortness of breath. Denies lightheadedness, dizziness, diaphoresis, syncopal events. No urinary symptoms. In the ED, labs show mild leukocytosis with WBC 13 K, platelet 557 K, mildly elevated lipase at 89. CXR and KUB unremarkable. Patient was given IV morphine, IV Zofran, IVF. Admission Exam Per Admitting Provider Constitutional: WD/WN, vitals as above Eyes: PERRL, conjunctivae normal, anicteric sclerae ENMT: external ear and nose normal, oropharynx normal Respiratory: normal respiratory effort, lungs clear to auscultation Cardiovascular: Rate/Rhythm: regular rate and regular rhythm Vessels: normal peripheral pulses Extremities: no edema Gastrointestinal (Abdomen): Inspection/Auscultation: + abdomen distended and normal bowel sounds Percussion/Palpation: + abdomen tender (Epigastric and RUQ) and abdomen soft Musculoskeletal: no cyanosis or clubbing, extremities motor strength 5/5 Skin: no rashes, warm and dry Neurologic: PERRL, EOMI, accommodation nl, no face palsy, no dysarthria Psychiatric: A+Ox3, euthymic affect Insight: + limited insight (Underlying intellectual disability) Principal Dx & Hospital Course #1 = Principal Diagnosis (1) Nausea vomiting and diarrhea: (2) Abdominal pain: (3) Celiac disease: per admitting service notes with addendum: Admit to [facility] Patient recently admitted to [facility] 09/07 through 09/09 for abdominal pain and pos sible aspiration pneumonitis after undergoing EGD/EUS as an outpatient. Patient was treated for 3 days with clindamycin for aspiration pneumonitis. EGD/EUS showed duodenal mucosa with mild villous blunting, increased intraepithelial lymphocytes, lamina propria lymphocytosis and focal foveolar metaplasia concerning for celiac disease. Also showed marked hepatocellular iron deposit. Patient did not make his follow-up appointment with GI and is scheduled to see hematology at the end of the month. TTG IgA and IgA levels drawn and <1.0 and <10.0 respectively. Patient reports not following a gluten-free diet since being home. Will check CT ABD/pelvis Stool study including C. difficile pending Clear liquid diet, symptom management with IVF and as needed antiemetics GI consult 10/19 stool PCR: (+) Norovirus and Astrovirus C diff test: negative repeat C diff test: Negative Nonadherence with gluten-free diet likely contributing to patient's symptoms Again stressed with patient regarding adherence to gluten-free diet, otherwise symptoms will continue patient verbalized understanding and agreement Patient given supportive care IV fluids Protonix daily Add cholestyramine twice daily for diarrhea Symptoms resolved Dietitian consulted for gluten-free diet GI consulted- no procedures recommended (4) Iron overload: Recent EGD/EUS showed marked hepatocellular iron deposit Patient is scheduled to see hematology again in the month Abnormal CT abdomen/pelvis finding Spleen: Splenomegaly is seen with a craniocaudal dimension of 16 cm. Further work-up and management as an outpatient DVT PROPHYLAXIS SCDs Disposition DC home Follow-up with PCP in 1 week Discharge Exam General- oriented x 3, not in distress, speaks in sentences with no effort or accessory muscle use Eyes- anicteric Neck- no JVD Lungs- clear breath sounds bilaterally, no rales/wheezes Heart- normal rate, regular rhythm; no murmurs Abdomen- normal bowel sounds, nondistended, soft, mild epigastric tenderness Extremities- no pretibial edema, no calf tenderness Neuro- alert, oriented x 3; no gross focal neurologic deficits Skin- warm & dry Updated Medication List Medication Instructions Recorded Confirmed Type pantoprazole 40 mg tablet,delayed 40 mg PO DAILY 14 days #14 tabs 10/17/22 Rx release (Protonix) Hospital Stay Data Consultations 10/15/22 16:04 ED Decision to Admit Stat 10/15/22 18:31 Consult Gastroenterology Routine Diagnostic Imagining Performed 10/15/22 16:55 CT abd pelvis IV con only Routine COMPARISON: Comparison is made to CT abdomen pelvis 09/07/2022 FINDINGS: Lower chest: Bibasilar atelectasis versus scarring is seen. Cardiomegaly is seen. Liver: Unremarkable. No focal lesions are seen. Gallbladder and biliary tree: No calcified gallstones. Normal caliber wall. No intra- or extrahepatic biliary ductal dilation. Pancreas: Unremarkable, no focal lesions. Spleen: Splenomegaly is seen with a craniocaudal dimension of 16 cm. Adrenals: Unremarkable. Kidneys and ureters: Unremarkable. Bladder: Limited evaluation due to underdistention. Reproductive organs: Unremarkable. Bowel: The appendix is normal. There is a small hiatal hernia. Endoscopy clip is incidentally seen in the right lower quadrant. This is unchanged from prior exam. Lymph nodes Retroperitoneal: Unremarkable. Pelvic: Unremarkable. Mesenteric: Unremarkable. Peritoneum: Normal. Vessels: Unremarkable. Abdominal wall: Bilateral fat-containing inguinal hernias are seen. Bones: Degenerative changes in the visualized spine. IMPRESSION: 1. No acute abnormalities. In particular no evidence of pancreatitis or cholecystitis. The appendix is normal. 2. Redemonstration of splenomegaly. ACT 112: Negative or not required by law. Pending Results Patient Have Any Pending Studies at Discharge: No Discharge Instructions Given to Patient (Per Discharging Provider) PLEASE REFER TO YOUR NEW MEDICATION LIST AND FOLLOW INSTRUCTIONS CAREFULLY. YOUR NEW MEDICATION INCLUDE: PROTONIX- antacid x 2 weeks FOLLOW GLUTEN FREE DIET. DRINK PLENTY OF FLUIDS. PLEASE CALL YOUR PRIMARY CARE PHYSICIAN OR RETURN TO THE ER IF WITH WORSENING OF SYMPTOMS, INCLUDING abdominal pain, nausea/vomiting, fever/chills, etc FOLLOW UP WITH PRIMARY CARE PHYSICIAN IN 1 WEEK. FOLLOW UP WITH WIG MAKER (STOMACH SPECIALIST) AND MACHINE LEATHER TRIMMER (BLOOD SPECIALIST) SCHEDULED. Total Time Total Time Spent Total Time Spent (In Minutes): >30 minutes
== END 2022-10-19 14:23 | disposition home or self-care (01) | DRG 392 ==
LOC: ED 13:35 → 3N 13:35 → SUATTDRO 16:12 → 3N 17:57

== ENCOUNTER 2025-08-05 15:12 | Inpatient (IN) ==
--- NOTE | 2025-08-05 15:58 | Emergency Department Note ---
Impression & Plan Acute pancreatitis, Portal vein thrombosis, Acute upper abdominal pain, Diarrhea ED Provider Note CHIEF COMPLAINT: Abdominal Pain HISTORY OF PRESENTING ILLNESS: This 50-year-old male patient presents to the emergency department with his mother for evaluation of abdominal pain, nausea, and vomiting. He states his symptoms started 4 days ago. The patient was just seen in the emergency department earlier today for the same symptoms. The patient was offered admission for treatment of his acute pancreatitis. The patient declined admission at that time. However, his symptoms have worsened at home and he would like to be admitted at this time. The patient has a history of portal vein thrombosis and has been compliant with his Eliquis. He has been having increasing pain in the epigastric region with multiple episodes of diarrhea. He denies nausea or vomiting currently. He denies any fevers. The patient states that he tried outpatient treatment, but his pain got worse and he feels like he needs admitted at this time. Workup from earlier today: Laboratory workup showed normal WBC; normal PT/INR; elevated total bilirubin (1.1) with normal AST/ALT; elevated lipase (393) - CT abdomen/pelvis with IV contrast negative for acute pathology. Noted to have a cirrhotic liver. Again noted to have a thrombus in the right portal vein and a small amount of nonocclusive thrombus in the splenic vein. Noted to have splenomegaly. - COVID/flu/RSV negative - UA negative for infection. REVIEW OF SYSTEMS: See HPI for pertinent positives and pertinent negatives. ALLERGIES: PCN V MEDICATIONS: See below PAST MEDICAL HISTORY: See below PHYSICAL EXAM: VITALS: Vitals are noted on the nurse's note and reviewed by myself. GENERAL: Non toxic, in no acute distress, non-diaphoretic. SKIN: Capillary refill <2 sec. EYES: PERRLA. EOMI. Conjunctivae without injection, sclerae without icterus. NOSE: Patent without discharge. MOUTH: Mucous membranes moist. Uvula midline. Airway patent. NECK: Supple without nuchal rigidity. HEART: Regular rate and rhythm without murmurs gallops or rubs. LUNGS: Clear to auscultation bilaterally without wheezes, rales or rhonchi. No retractions or accessory muscle use. ABDOMEN: Positive bowel sounds x 4. Normal tympanic percussion. Soft, tender to palpation maximally in the epigastric region, but also diffusely over the abdomen. No masses or hepatosplenomegaly. Tinoco sign negative. No CVA tenderness. No guarding, rigidity, or rebound tenderness. No focal RLQ or LLQ tenderness. MUSCULOSKELETAL: No gross musculoskeletal defects. NEURO: Patient was alert and oriented. No focal neurological deficits. DIFFERENTIAL DIAGNOSIS: Differential diagnosis includes hepatitis, pancreatitis, cholecystitis, cholelithiasis, appendicitis, kidney stone, pyelonephritis, UTI, gastritis, gastroenteritis, mesenteric adenitis, obstruction, constipation, hernia, abdominal abscess, perforation, diverticulitis, IBD, ischemic colitis, abdominal aortic aneurysm, testicular torsion, prostatitis, or others. ED COURSE AND MEDICAL DECISION MAKING: HISTORY FROM INDEPENDENT HISTORIAN: Additional history obtained from the patient's mother MEDICATIONS GIVEN: 1 L NSS bolus, Tylenol 1000 mg IV EXTERNAL RECORDS REVIEWED: I reviewed the patient's previous ER visit from earlier today. CONSULTATIONS: On-call hospitalist [facility] SUMMARY: The patient was seen during a time of extreme volume and extreme acuity. The patient was evaluated by myself in a triage room. The patient's workup was complete prior to an ER bed becoming available. The patient was seen in the ER earlier today for upper abdominal pain and diarrhea. The patient was diagnosed with pancreatitis and offered admission. However, the patient declined admission at that time. The patient tried to go home to continue outpatient management, but his symptoms got worse and he return to the ER for admission. The patient denies any change in his symptoms other than worsening pain. The patient had been unable to give a stool sample while in the ER previously. The patient's lipase was elevated at [address] scan showed cirrhosis with a thrombus in the right portal vein and a small amount of nonocclusive thrombus in the splenic vein which is chronic. The patient is on Eliquis and states that he has been compliant with taking the Eliquis. The patient was agreeable to admission at this time. The patient was given 1 L normal saline solution bolus and Tylenol 1000 mg IV. Blood work and imaging was not repeated as the patient just had a workup done a few hours ago. I had a meaningful discussion about this patient with Dr. Mc who agrees with my assessment and the treatment plan. I spoke with the on-call hospitalist who agreed to admit the patient for further evaluation and treatment. Please refer to their dictation for further details. 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) Surgical History S/P endoscopy No pertinent past surgical history Social History Smoking Status: Never smoker Tobacco Type: Smokeless Tobacco (Dip or Chew) Second Hand Exposure: No; Do You Dip or Chew Tobacco: Yes (ONE CAN A MONTH); Hx Alcohol Use: No Hx Substance Use: No Preferred Language: Qatari Communication Ability: Effective Center Rep Required: No Beliefs That Will Affect Care: None Current Living Situation: Parent Feels Safe at Home: Yes Safety Concerns: Feels Safe At This Time Assistive Devices: Glasses Assistive Devices Comment: READERS Allergies Allergies Allergy/AdvReac Type Severity Reaction Status Date / Time penicillin V Allergy Intermediate RASH Verified 04/25/25 01:15 Unclassified Drugs Allergy Unknown HX; C-DIFF Uncoded 04/25/25 01:15 COLITIS, MUST AVOID ANTIBIOTICS Home Meds Home Medications Medication Instructions Recorded Confirmed oxycodone 5 mg tablet 5 mg PO Q6H PRN Severe Pain (Scale 04/25/25 08/05/25 Score 7-10) Previous Rx's Medication Instructions Recorded apixaban 5 mg tablet (Eliquis) 5 mg PO Q12H #70 tabs 04/12/25 pantoprazole 40 mg tablet,delayed 40 mg PO BID #60 tabs 04/12/25 release Results & Data (ED) Vital Signs Vital Signs - 24 hr 08/05/25 15:12 Temperature 36.6 C Temperature Source Temporal Artery Scan Pulse Rate 57 L Respiratory Rate 18 Blood Pressure 153/96 H Blood Pressure Mean 115 Pulse Oximetry 99 Sepsis Recent Fever Within 48 Hours No Sepsis New/Unexplained Change in Mental Status N/A Sepsis Action Taken by Nursing No Action Required Administered Medications Apixaban (Apixaban 5 Mg Tablet) 5 mg PO Q12 JOSÉ Stop: 09/04/25 21:14 Last Admin: 08/05/25 22:16 Dose: 5 mg Documented By: LASHON Lactated Ringer's (Lr) 1,000 mls @ 125 mls/hr IV .Q8H JOSÉ Stop: 08/06/25 07:00 Last Admin: 08/05/25 21:02 Dose: 125 mls/hr Documented By: LASHON Acetaminophen (Ofirmev) 1,000 mg in 100 mls @ 400 mls/hr IV Q12 JOSÉ Stop: 08/08/25 21:00 Last Infusion: 08/05/25 22:42 Dose: Infused Documented By: Admin: 08/05/25 22:16 Dose: 400 mls/hr Documented By: LASHON Ketorolac Tromethamine (Ketorolac Tromethamine 15 Mg/Ml Vial) 15 mg IV Q6H PRN PRN Reason: Moderate Pain (Scale 4, 5, 6) Last Admin: 08/05/25 22:16 Dose: 15 mg Documented By: LASHON Oxycodone HCl (Oxycodone Hcl Ir 5 Mg Tab (Immediate Release)) 5 mg PO Q4 PRN PRN Reason: Pain Stop: 08/19/25 18:43 Last Admin: 08/05/25 18:51 Dose: 5 mg Documented By: NELI Pantoprazole Sodium (Pantoprazole 40 Mg Tab) 40 mg PO BID JOSÉ Stop: 09/04/25 21:00 Last Admin: 08/05/25 22:16 Dose: 40 mg Documented By: LASHON Discontinued Medications Sodium Chloride (Nss) 1,000 mls @ 999 mls/hr IV .Q1H1M ONE Stop: 08/05/25 17:06 Last Infusion: 08/05/25 18:16 Dose: Infused Documented By: Admin: 08/05/25 16:51 Dose: 999 mls/hr Documented By: NELI Acetaminophen (Ofirmev) 1,000 mg in 100 mls @ 400 mls/hr IV NOW STA Stop: 08/05/25 16:20 Last Infusion: 08/05/25 17:46 Dose: Infused Documented By: Admin: 08/05/25 16:51 Dose: 400 mls/hr Documented By: ECS Discharge Plan Visit Data Chief Complaint: Abdominal Pain Stated Complaint: ABD PAIN ED Provider: Tracy Mc ED Midlevel Provider: Joy Luciano Discharge Problem: Acute pancreatitis, Portal vein thrombosis, Acute upper abdominal pain, Diarrhea Patient Disposition: Admitted As Inpatient Condition: Fair Discharge Instructions Interventions: ED Discharge Assessment Last Done: 08/05/25 20:20 Discharge Problem: Acute pancreatitis Qualifiers: Pancreatitis type: unspecified pancreatitis type Acute pancreatitis complication: unspecified Qualified Code(s): K85.90 - Acute pancreatitis without necrosis or infection, unspecified Diarrhea Qualifiers: Diarrhea type: unspecified type Qualified Code(s): R19.7 - Diarrhea, unspecified
--- NOTE | 2025-08-05 16:24 | History & Physical Report ---
Date of Service August 05, 2025 Assessment & Plan (1) Acute upper abdominal pain: (2) Acute pancreatitis: (3) Portal vein thrombosis: (4) Intellectual disability: Plan This is a 50 yr old M who has a significant PMH of portal vein thrombus on eliquis, Cirrhosis, HLD, hx of cdiff, Intellectual disability, tobacco use disorder, splenomegaly, IBS with diarrhea, obesity, celiac disease, IGG kappa gammopathy who presents to ED 2/2 abdominal pain. #Acute upper abdominal pain #Acute pancreatitis #Possible Viral GI illness Pt with abd pain x 4-5 days, poor intake, nausea, some vomiting and loose stool no known sick contacts obtain Stool sample, hx of cdiff with fecal transplant, check cdiff NPO with sips/chips, IVF LR @ 150/hr IV APAP prn, pt does not want anything stronger at this time denies NSAID USE, CT w/o evidence of biliary stone will trend lipase, check fasting lipid panel likely d/c in 1-2 days when tolerating diet and pain resolved #Hx of PVT #Cirrhosis follows [facility] hepatology continue eliquis ct a/p today with persistent clot #Igg kappa gammopathy found in work up of cirrhosis had Heme consult today, but cancelled due to pain will need appt rescheduled at discharge #Intellectual disability supportive care #DVT ppx: Eliquis FULL CODE PCP: Dylan archer Dispo: admit to medical Pt was seen and examined in collaboration with Dr. Nixon, please see addendum I spent a total of 55 minutes coordinating, documenting and providing care for this patient excluding time spent in the performance of separately billed services or time spent by another provider/QHP. History of Present Illness Chief Complaint: Abdominal pain. Primary Care Provider: Dylan Archer, This is a 50 yr old M who has a significant PMH of portal vein thrombus on eliquis, Cirrhosis, HLD, Intellectual disability, tobacco use disorder, splenomegaly, IBS with diarrhea, obesity, celiac disease, IGG kappa gammopathy who presents to ED 2/2 abdominal pain. Of significant [facility]. Moore. History obtained from ED provider, mom at bedside and chart review. Patient was seen in the ED earlier today secondary to abdominal pain for 4 to 5 days. Pain has progressively gotten worse. It comes and goes. It is also associate with nausea, a few episodes of vomiting and frequent diarrhea. He denies sick contacts, hematemesis or melena. He reports it feels similar to when he was diagnosed with celiac disease. Mom reports poor diet and noncompliance with celiac diet. Patient was seen in ED earlier today and workup revealed an mildly elevated lipase in the 390s. He also had a CT abdomen pelvis without any acute pathology. He was offered admission at that time, but deferred and wished to be discharged. En route home his pain returned and he opted to return for admission. In ED patient remains hemodynamically stable. He was started on IV fluids and received Tylenol for pain. Allergies Allergy/AdvReac Type Severity Reaction Status Date / Time penicillin V Allergy Intermediate RASH Verified 04/25/25 01:15 Unclassified Drugs Allergy Unknown HX; C-DIFF Uncoded 04/25/25 01:15 COLITIS, MUST AVOID ANTIBIOTICS Home Medications Medication Instructions Recorded Confirmed Type apixaban 5 mg tablet (Eliquis) 5 mg PO Q12H #70 tabs 04/12/25 08/05/25 Rx pantoprazole 40 mg tablet,delayed 40 mg PO BID #60 tabs 04/12/25 08/05/25 Rx release oxycodone 5 mg tablet 5 mg PO Q6H PRN Severe Pain (Scale 04/25/25 08/05/25 History Score 7-10) Past Med/Surg History Problem List Acute upper abdominal pain (Acute) Acute pancreatitis (Acute) Portal vein thrombosis (Acute) Astrovirus gastroenteritis Norovirus Iron overload Nausea vomiting and diarrhea (Acute) Abdominal pain (Acute) Medical History Intellectual disability Celiac disease 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) Surgical History S/P endoscopy No pertinent past surgical history Social History Smoking Status: Never smoker Tobacco Type: Cigarettes Second Hand Exposure: No; Do You Dip or Chew Tobacco: Yes; Hx Alcohol Use: No Hx Substance Use: No Preferred Language: Japanese Communication Ability: Effective Candlemaking Laborer Required: No Beliefs That Will Affect Care: None Current Living Situation: Family Feels Safe at Home: Yes Assistive Devices: None Review of Systems Review of Systems: All systems reviewed & are unremarkable except as noted in HPI & below Physical Exam Physical Exam: Gen: WD/WN, NAD, A&O x3 HEENT: Normocephalic, atraumatic, conjunctivae moist, sclerae anicteric, mucous membranes moist. Lung: Clear to Auscultation bilaterally, no wheezes/rales/rhonchi Heart: Regular rate, regular rhythm, no murmurs, rubs, or gallops Abdomen: Soft, +tender to palpation superior to umbilicus, no guarding or rigidity, ND +BS x 4 Extremities: No edema Skin: Warm, no rash, negative turgor. Results & Data Results & Data Vital Signs (Past 12 Hours) Vital Signs Temp Pulse Resp BP Pulse Ox 08/05/25 15:12 36.6 C 57 L 18 153/96 H 99 Laboratory Results I have independently reviewed and interpreted patient's admitting labs including CBC, CMP, PT/INR, lipase. Diagnostic Findings [place], [place] [phone] CT Scan Report Patient: OVI POLK Admit Date: 08/05/25 MR#: [id number] Address1: [address] [place] [address] Acct ID:[id number] Address2: Date: 1975 [facility] Zip: [place] [address] Age: 50 Location: ED Sex: M Room/Bed: Att Phy: Diagnosis: ABD PAIN, DIARRHEA Fabienne Phy: Dylan Archer DO Service Date: 08/05/25 [facility] Phy: Interpreting Phy: Josse Fritz MDAdmit Phy: Ordering Phy: Tracy Mc MD cc: ~ CT SCAN OF THE ABDOMEN AND PELVIS WITH IV CONTRAST CLINICAL HISTORY: Generalized abdominal pain. Diarrhea. COMPARISON STUDY: Abdominal CT dated 04/25/2025. TECHNIQUE: Following the IV administration of 94 cc of Optiray 320, CT scan of the abdomen and pelvis is performed from the lung bases to the proximal femora. Images are reviewed in the axial, sagittal, and coronal planes. IV contrast was administered without complication. A dose lowering technique was utilized adhering to the principles of ALARA. CT DOSE: 1584.65 mGy.cm FINDINGS: Lung bases: The heart is normal in size and without pericardial effusion. The lung bases are clear noting dependant atelectasis. Liver: The contrast-enhanced liver is cirrhotic morphology and heterogeneous in attenuation. There is hypertrophy of the left lobe and nodularity of the hepatic surface contour. There is no intrahepatic biliary ductal dilatation. There is thrombosis within a branch of the right portal vein seen on axial images #58 and #69. The remainder of the portal veins appear patent, as are the hepatic veins. Gallbladder: Unremarkable. Spleen: The spleen is enlarged, measuring 18 cm in length. There is a small amount of thrombus within the dilated splenic vein seen on axial images #117 and #122. Pancreas: Unremarkable. Adrenal glands: Unremarkable. Kidneys: The contrast enhanced kidneys are normal in size and without hydronephrosis. The kidneys enhance symmetrically. Abdominal vasculature: The abdominal aorta is normal in course and caliber. Bowel: There is no bowel obstruction. The appendix is well-visualized and normal. Peritoneum: There is no intraperitoneal free air or abdominal ascites. There is a fat-containing umbilical hernia. Lymphadenopathy: None. Pelvic viscera: The bladder, prostate, and seminal vesicles are normal as visualized. There are small bilateral fat-containing groin hernias. Skeletal structures: No lytic or blastic lesions are seen. Mild degenerative change is noted in the spine. IMPRESSION: 1. No acute infectious or inflammatory findings are identified in the abdomen or pelvis. 2. The liver is cirrhotic in morphology and heterogeneous in attenuation. 3. Marked splenomegaly suggest portal hypertension. 4. There is thrombus again seen with a branch of the right portal vein. This is unchanged from 04/25/2025. 5. There is also a small amount of nonocclusive thrombus again seen within the splenic vein near the splenic hilum. 6. Additional findings as above. Code Status & VTE Plan Code Status FULL CODE VTE Prophylaxis Plan VTE Prophylaxis will be ordered: No Supervising Physician Co-Signing Physician Notes Patient seen and examined at bedside. Mother present as well. Patient was leaving ED and got abdominal pain came right back. Patient willing to take pain medications as needed. On exam, tenderness to palpation in epigastric region. Elevated lipase. Patient presenting with signs and symptoms of acute pancreatitis. Likely secondary to GI bug. Progress diet as tolerated, IV fluids, pain control ordered with oxycodone, Toradol, Tylenol. Suspect short hospital stay has pancreatitis resolves. I have seen and discussed the case with the collaborating advanced practitioner. I agree with the above H&P. I have reviewed and confirmed the patients medical history, the findings on physical examination, and the patients diagnosis and treatment plan with Ashley Forman PA-C and agree with the information documented. I spent a total of 20 minutes coordinating, documenting, and providing care for this patient excluding time spent in the performance of separately billed services. All of the aforementioned completed outside of collaborating with the assigned advanced practitioner for a full treatment plan. I have reviewed the advanced practitioner's documentation, and I agree with, and take responsibility for the plan of care
[2025-08-05] MEDS: SODIUM CHLORIDE 0.9% 1,000 ML IV ONE (16:51)
[2025-08-05] MEDS: ACETAMINOPHEN 1,000 MG/100 ML VIAL IV STA (16:51)
--- NOTE | 2025-08-05 18:23 | Emergency Department Note ---
ED Visit Note I was consulted by the Advanced Practice Provider, Joy Luciano PA-C. I performed a substantive portion of the visit. This includes aspects of: History: Patient is a 50-year-old male presenting with abdominal pain. He was just seen by myself earlier in the morning for persistent abdominal pain and GI symptoms. He attempted to go home after his negative workup in the ER other than acute pancreatitis, but had worsening of pain symptoms and decided to represent to the ER. MDM: Patient will be admitted to the hospitalist service .
[2025-08-05 20:47] LABS: Cdiff Toxin B Gene (2yr or >) Negative Cdiff Gene (Neg)
[2025-08-05] MEDS ORDERED: ONDANSETRON INJ 2 MG/ML 2 ML VIAL IV PRN (21:01)
[2025-08-05] MEDS: LACTATED RINGER'S 1,000 ML IV SCH (21:02)
[2025-08-05 21:18] LABS: Adenovirus F 40/41 PCR Not Detected (NotDetected); Campylobacter PCR Not Detected (NotDetected); Enteroaggregative E.coli(EAEC) Not Detected (NotDetected); Shiga-like Toxin E.coli (STEC) Not Detected (NotDetected); Vibrio species PCR Not Detected (NotDetected)
[2025-08-05] MEDS: APIXABAN 5 MG TABLET PO SCH (22:16)
[2025-08-05] MEDS: KETOROLAC TROMETHAMINE 15 MG/ML VIAL IV PRN (22:16)
[2025-08-05] MEDS: ACETAMINOPHEN 1,000 MG/100 ML VIAL IV SCH (22:16)
[2025-08-06 07:10] LABS: Hematocrit (blood only) 36.8 % (42.0-52.0); Hemoglobin 12.7 g/dL (14.0-18.0); Immature Granulocytes # (auto) 0.07 K/uL (0.01-0.20); Immature Granulocytes % (auto) 1.3 %; Mean Corpuscular Hemoglobin 29.3 pg (25.0-34.0); Mean Corpuscular Volume 84.8 fL (80.0-100.0); Platelet Count 292 K/uL (130-400); RDW Standard Deviation 45.3 fL (36.4-46.3); Red Blood Count 4.34 M/uL (4.70-6.10); White Blood Count 5.50 K/ul (4.8-10.8)
[2025-08-06 08:07] LABS: Alanine Aminotransferase 23.0 U/L (7-52); Albumin Globulin Ratio 1.3 (0.9-2); Albumin Level 3.6 gm/dl (3.4-5.0); Alkaline Phosphatase 65.0 U/L (34-104); Anion Gap 7.0 (3-11); Bilirubin,Total 1.4 mg/dl (0.2-1.0); Blood Urea Nitrogen 13.0 mg/dl (6-23); Calcium 8.3 mg/dl (8.6-10.3); Carbon Dioxide 23.0 mmol/L (21-32); Chloride 106.0 mmol/L (98-107); Cholesterol 131.0 mg/dl (0-200); Creatinine Clr Calc Pharmacy 106.4 ml/min; Globulin 2.7 gm/dl (2.5-4.0); Glucose 87.0 mg/dl (70-99(Fasting)); HDL Cholesterol 23.0 mg/dl; Lipase 18.0 U/L (11-82); Magnesium 2.0 mg/dl (1.7-2.4); Potassium 3.5 mmol/L (3.5-5.1); Sodium 136.0 mmol/L (136-145); Total Protein 6.3 gm/dl (6.0-8.3); Triglycerides 99.0 mg/dl (0-150)
--- NOTE | 2025-08-06 15:43 | Hospitalist Progress Note ---
Date of Service August 06, 2025 Assessment & Plan (1) Acute upper abdominal pain: (2) Acute pancreatitis: (3) Portal vein thrombosis: (4) Intellectual disability: Plan This is a 50 yr old M who has a significant PMH of portal vein thrombus on eliquis, Cirrhosis, HLD, hx of cdiff, Intellectual disability, tobacco use disorder, splenomegaly, IBS with diarrhea, obesity, celiac disease, IGG kappa gammopathy who presents to ED 2/2 abdominal pain. #Acute upper abdominal pain #Acute pancreatitis #Possible Viral GI illness, with sapovirus Pt with abd pain x 4-5 days, poor intake, nausea, some vomiting and loose stool no known sick contacts, Admitting C. difficile test negative, stool PCR positive for Sapa virus Lipase elevated at presentation. Patient reports improvement in abdominal pain and would like to eat. Full liquid diet today, gradually advance in a.m. if continues to improve. Provide supportive care for viral gastroenteritis. Lipase has normalized. #Hx of PVT #Cirrhosis follows [facility] hepatology continue eliquis ct a/p with persistent clot #Igg kappa gammopathy found in work up of cirrhosis had Heme consult On the day of presentation, but cancelled due to pain will need appt rescheduled at discharge #Intellectual disability supportive care #DVT ppx: Eliquis FULL CODE PCP: Dylan archer Dispo: admit to medical likely DC tomorrow if continues to improve with abdominal pain and is able to tolerate diet. Admission and Anticipated Discharge Date Admission Date: August 05, 2025 Subjective Patient was seen and examined at bedside. Patient was lying in bed, on room air, NAD, resting comfortably. Patient reports improving abdominal pain and would like to eat. Patient reports last loose bowel yesterday. Physical Exam Physical Exam: Gen: WD/WN, NAD, A&O x3 HEENT: Normocephalic, atraumatic, conjunctivae moist, sclerae anicteric, mucous membranes moist. Lung: Clear to Auscultation bilaterally, no wheezes/rales/rhonchi Heart: Regular rate, regular rhythm, no murmurs, rubs, or gallops Abdomen: Soft, +tender to palpation superior to umbilicus xmild, no guarding or rigidity, ND +BS x 4 Extremities: No edema Skin: Warm, no rash, negative turgor. Results & Data Results & Data Vital Signs (Past 12 Hours) Vital Signs Temp Pulse Resp BP Pulse Ox O2 Del Method 08/06/25 15:18 37.0 C 53 L 18 107/66 98 Room Air 08/06/25 08:25 37.1 C 52 L 22 117/73 98 Room Air (2) Acute pancreatitis Acute pancreatitis complication: unspecified Pancreatitis type: unspecified pancreatitis type Qualified Code(s): K85.90 - Acute pancreatitis without necrosis or infection, unspecified
[2025-08-07 06:23] LABS: Hematocrit (blood only) 36.3 % (42.0-52.0); Hemoglobin 12.5 g/dL (14.0-18.0); Mean Corpuscular Hemoglobin 29.1 pg (25.0-34.0); Mean Corpuscular Volume 84.6 fL (80.0-100.0); Platelet Count 282 K/uL (130-400); RDW Standard Deviation 43.9 fL (36.4-46.3); Red Blood Count 4.29 M/uL (4.70-6.10); White Blood Count 4.81 K/ul (4.8-10.8)
[2025-08-07 06:51] LABS: Anion Gap 5.0 (3-11); Blood Urea Nitrogen 15.0 mg/dl (6-23); Calcium 8.4 mg/dl (8.6-10.3); Carbon Dioxide 27.0 mmol/L (21-32); Chloride 105.0 mmol/L (98-107); Creatinine Clr Calc Pharmacy 91.4 ml/min; Glucose 85.0 mg/dl (70-99(Fasting)); Magnesium 2.1 mg/dl (1.7-2.4); Potassium 3.7 mmol/L (3.5-5.1); Sodium 137.0 mmol/L (136-145)
--- NOTE | 2025-08-07 12:31 | Hospitalist Progress Note ---
Date of Service August 07, 2025 Assessment & Plan (1) Acute upper abdominal pain: (2) Acute pancreatitis: (3) Portal vein thrombosis: (4) Intellectual disability: Plan This is a 50 yr old M who has a significant PMH of portal vein thrombus on eliquis, Cirrhosis, HLD, hx of cdiff, Intellectual disability, tobacco use disorder, splenomegaly, IBS with diarrhea, obesity, celiac disease, IGG kappa gammopathy who presents to ED 2/2 abdominal pain. #Acute upper abdominal pain #Acute pancreatitis #Possible Viral GI illness, with sapovirus Pt with abd pain x 4-5 days, poor intake, nausea, some vomiting and loose stool no known sick contacts, Admitting C. difficile test negative, stool PCR positive for Sapa virus Lipase elevated at presentation. Patient reports improvement in abdominal pain, reports some pain, w/ c/w full liq diet today. Gradually advance diet in a.m. if continues to improve. Provide supportive care for viral gastroenteritis. Lipase has normalized. #Hx of PVT #Cirrhosis follows [facility] hepatology continue eliquis ct a/p with persistent clot #Igg kappa gammopathy found in work up of cirrhosis had Heme consult On the day of presentation, but cancelled due to pain will need appt rescheduled at discharge #Intellectual disability supportive care #DVT ppx: Eliquis FULL CODE PCP: Dylan archer Dispo: admit to medical likely DC tomorrow if continues to improve with abdominal pain and is able to tolerate diet. Admission and Anticipated Discharge Date Admission Date: August 05, 2025 Subjective Patient was seen and examined at bedside. Patient was lying in bed, on room air, NAD, resting comfortably. Patient reports improving abdominal pain. Patient reports last loose bowel day before yesterday. Per RN, no new acute events. Physical Exam Physical Exam: Gen: WD/WN, NAD, A&O x3 HEENT: Normocephalic, atraumatic, conjunctivae moist, sclerae anicteric, mucous membranes moist. Lung: Clear to Auscultation bilaterally, no wheezes/rales/rhonchi Heart: Regular rate, regular rhythm, no murmurs, rubs, or gallops Abdomen: Soft, +tender to palpation superior to umbilicus x improving, no guarding or rigidity, ND +BS x 4 Extremities: No edema Skin: Warm, no rash, negative turgor. Results & Data Results & Data Vital Signs (Past 12 Hours) Vital Signs Temp Pulse Resp BP Pulse Ox O2 Del Method 08/07/25 07:05 37.1 C 50 L 16 132/78 98 Room Air (2) Acute pancreatitis Acute pancreatitis complication: unspecified Pancreatitis type: unspecified pancreatitis type Qualified Code(s): K85.90 - Acute pancreatitis without necrosis or infection, unspecified
[2025-08-08 07:03] LABS: Anion Gap 5.0 (3-11); Blood Urea Nitrogen 15.0 mg/dl (6-23); Calcium 8.5 mg/dl (8.6-10.3); Carbon Dioxide 28.0 mmol/L (21-32); Chloride 102.0 mmol/L (98-107); Creatinine Clr Calc Pharmacy 86.6 ml/min; Glucose 85.0 mg/dl (70-99(Fasting)); Potassium 3.8 mmol/L (3.5-5.1); Sodium 135.0 mmol/L (136-145)
--- NOTE | 2025-08-08 12:50 | Gastrointestinal Consultation ---
Date of Consultation August 08, 2025 Assessment & Plan (1) Acute gastroenteritis: Clinical picture consistent with acute gastroenteritis. Sapovirus presents similarly to norovirus. Can cause elevated lipase as other gastroenteritis is can. Imaging does not support the diagnosis of acute pancreatitis. This should ultimately be self-limiting. Continue to manage symptoms advance diet as tolerated. Call if any further issues. (2) Portal vein thrombosis: Known portal vein thrombosis on Eliquis (3) Cirrhosis: Followed by [facility] for liver disease should follow-up as an outpatient. History of Present Illness Reason for Consultation: Abdominal pain nausea vomiting and diarrhea with elevated lipase Attending Physician: Carola Hernandez MD History of Present Illness Patient presents with several day history of upper abdominal pain associated with diarrhea and nausea and vomiting. His lipase was elevated to 393 now normal. Stool studies positive for Sapovirus. Still with upper abdominal pain resolving nausea and vomiting and less diarrhea. Lipase has normalized. CT scan of the abdomen significant for known portal vein thrombus splenomegaly and cirrhosis. No other acute pathology seen. History of celiac disease apparently noncompliant with diet. Allergies Allergy/AdvReac Type Severity Reaction Status Date / Time penicillin V Allergy Intermediate RASH Verified 04/25/25 01:15 Unclassified Drugs Allergy Unknown HX; C-DIFF Uncoded 04/25/25 01:15 COLITIS, MUST AVOID ANTIBIOTICS Home Medications Medication Instructions Recorded Confirmed Type apixaban 5 mg tablet (Eliquis) 5 mg PO Q12H #70 tabs 04/12/25 08/05/25 Rx pantoprazole 40 mg tablet,delayed 40 mg PO BID #60 tabs 04/12/25 08/05/25 Rx release oxycodone 5 mg tablet 5 mg PO Q6H PRN Severe Pain (Scale 04/25/25 08/05/25 History Score 7-10) Patient History Medical History Intellectual disability Celiac disease 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) Surgical History S/P endoscopy No pertinent past surgical history Social History Smoking Status: Never smoker Tobacco Type: Smokeless Tobacco (Dip or Chew) Second Hand Exposure: No; Do You Dip or Chew Tobacco: Yes (ONE CAN A MONTH); Hx Alcohol Use: No Hx Substance Use: No Preferred Language: Chinese Communication Ability: Effective Disc Sander Required: No Beliefs That Will Affect Care: None Current Living Situation: Parent Feels Safe at Home: Yes Safety Concerns: Feels Safe At This Time Assistive Devices: None Assistive Devices Comment: READERS Review of Systems Review of Systems: No fever No chills No SOB No CP GI as per HPI Physical Exam Physical Exam: Eyes; anicteric HENT No masses Chest clear to A Cor S1, S2 physiologic Abd: softer mild epigastric tenderness no rebound no guarding no masses Ext no edema Results & Data Vital Signs (Past 12 Hours) Vital Signs Temp Pulse Resp BP Pulse Ox O2 Del Method 08/08/25 08:50 18 08/08/25 07:47 36.6 C 49 L 22 124/71 97 Room Air Laboratory Results Laboratory Results - last 48 hr 08/07/25 08/08/25 06:00 06:27 WBC 4.81 RBC 4.29 L Hgb 12.5 L Hct 36.3 L MCV 84.6 MCH 29.1 MCHC 34.4 RDW Std Deviation 43.9 RDW Coeff of Gaurang 14.1 Plt Count 282 MPV 9.3 L Sodium 137 135 L Potassium 3.7 3.8 Chloride 105 102 Carbon Dioxide 27 28 Anion Gap 5 5 BUN 15 15 Creatinine 1.07 1.13 Est Cr Clr Drug Dosing 91.4 86.6 eGFR 85.07 79.68 BUN/Creatinine Ratio 14.0 13.3 Glucose 85 85 Calcium 8.4 L 8.5 L Phosphorus 3.5 Magnesium 2.1 PG Care Time/CCT Total # of Minutes Spent Total Time Spent with Patient: Total time spent is greater than 50% in coordination of care (as documented) at patient's floor/unit and/or counseling patient: Coding Level of Care Code 98623 IN/OBS CONSULT LVL 3,45M Diagnoses Acute gastroenteritis K52.9 Portal vein thrombosis I81 Cirrhosis K74.60
--- NOTE | 2025-08-08 15:18 | XRay Report ---
KUB HISTORY: persisten abd pain COMPARISON STUDY: 06/15/2023 FINDINGS: There is moderate retained stool. No bowel obstruction seen. No gross free air. IMPRESSION: No acute findings. ACT 112: Negative or not required by law. The above report was generated using voice recognition software. It may contain grammatical, syntax o r spelling errors. Electronically signed by: Vargas Castaneda M.D. 08/08/2025 3:16 PM
--- NOTE | 2025-08-08 15:57 | Hospitalist Progress Note ---
Date of Service August 08, 2025 Assessment & Plan (1) Acute upper abdominal pain: (2) Acute pancreatitis: (3) Portal vein thrombosis: (4) Intellectual disability: Plan This is a 50 yr old M who has a significant PMH of portal vein thrombus on eliquis, Cirrhosis, HLD, hx of cdiff, Intellectual disability, tobacco use disorder, splenomegaly, IBS with diarrhea, obesity, celiac disease, IGG kappa gammopathy who presents to ED 2/2 abdominal pain. #Acute upper abdominal pain #Acute pancreatitis #Possible Viral GI illness, with sapovirus Pt with abd pain x 4-5 days, poor intake, nausea, some vomiting and loose stool no known sick contacts, Admitting C. difficile test negative, stool PCR positive for Sapa virus Lipase elevated at presentation. Patient reports improvement in abdominal pain, but came back w/ low fiber diet, put on full liq diet. GI evaled appreciate recs. Gradually advance diet in a.m. if continues to improve. Provide supportive care for viral gastroenteritis. Lipase has normalized. #Hx of PVT #Cirrhosis follows [facility] hepatology continue eliquis ct a/p with persistent clot #Igg kappa gammopathy found in work up of cirrhosis had Heme consult On the day of presentation, but cancelled due to pain will need appt rescheduled at discharge #Intellectual disability supportive care #DVT ppx: Eliquis FULL CODE PCP: Dylan archer Dispo: admit to medical likely DC tomorrow if continues to improve with abdominal pain and is able to tolerate diet. Admission and Anticipated Discharge Date Admission Date: August 05, 2025 Subjective Patient was seen and examined at bedside. Patient was lying in bed, on room air, NAD, resting comfortably. Patient reports improving abdominal pain but increased w/ low fiber diet, so back on full liq diet and gi consulted, appreciate their eval. Patient reports last loose bowel 2 d ago Per RN, no new acute events. Physical Exam Physical Exam: Gen: WD/WN, NAD, A&O x3 HEENT: Normocephalic, atraumatic, conjunctivae moist, sclerae anicteric, mucous membranes moist. Lung: Clear to Auscultation bilaterally, no wheezes/rales/rhonchi Heart: Regular rate, regular rhythm, no murmurs, rubs, or gallops Abdomen: Soft, +tender to palpation superior to umbilicus x improving, no guarding or rigidity, ND +BS x 4 Extremities: No edema Skin: Warm, no rash, negative turgor. Results & Data Results & Data Vital Signs (Past 12 Hours) Vital Signs Temp Pulse Resp BP Pulse Ox O2 Del Method 08/08/25 15:05 36.8 C 48 L 20 143/85 H 97 Room Air 08/08/25 08:50 18 08/08/25 07:47 36.6 C 49 L 22 124/71 97 Room Air (2) Acute pancreatitis Acute pancreatitis complication: unspecified Pancreatitis type: unspecified pancreatitis type Qualified Code(s): K85.90 - Acute pancreatitis without necrosis or infection, unspecified
[2025-08-08 22:42] VITALS: TEMP 98.1
[2025-08-09 07:37] VITALS: BP 111/79; RESP 18; O2SAT 98
--- NOTE | 2025-08-09 13:59 | Discharge Summary ---
Date of Service August 09, 2025 Admission HPI Per Admitting Provider This is a 50 yr old M who has a significant PMH of portal vein thrombus on eliquis, Cirrhosis, HLD, Intellectual disability, tobacco use disorder, splenomegaly, IBS with diarrhea, obesity, celiac disease, IGG kappa gammopathy who presents to ED 2/2 abdominal pain. Of significant pt follows with [facility] Dr. Moore. History obtained from ED provider, mom at bedside and chart review. Patient was seen in the ED earlier today secondary to abdominal pain for 4 to 5 days. Pain has progressively gotten worse. It comes and goes. It is also associate with nausea, a few episodes of vomiting and fr equent diarrhea. He denies sick contacts, hematemesis or melena. He reports it feels similar to when he was diagnosed with celiac disease. Mom reports poor diet and noncompliance with celiac diet. Patient was seen in ED earlier today and workup revealed an mildly elevated lipase in the 390s. He also had a CT abdomen pelvis without any acute pathology. He was offered admission at that time, but deferred and wished to be discharged. En route home his pain returned and he opted to return for admission. In ED patient remains hemodynamically stable. He was started on IV fluids and received Tylenol for pain. Admission Exam Per Admitting Provider Gen: WD/WN, NAD, A&O x3 HEENT: Normocephalic, atraumatic, conjunctivae moist, sclerae anicteric, mucous membranes moist. Lung: Clear to Auscultation bilaterally, no wheezes/rales/rhonchi Heart: Regular rate, regular rhythm, no murmurs, rubs, or gallops Abdomen: Soft, +tender to palpation superior to umbilicus, no guarding or rigidity, ND +BS x 4 Extremities: No edema Skin: Warm, no rash, negative turgor. Principal Diagnosis #Acute upper abdominal pain #Acute pancreatitis #Possible Viral GI illness, with sapovirus Discharge Exam Gen: WD/WN, NAD, A&O x3 HEENT: Normocephalic, atraumatic, conjunctivae moist, sclerae anicteric, mucous membranes moist. Lung: Clear to Auscultation bilaterally, no wheezes/rales/rhonchi Heart: Regular rate, regular rhythm, no murmurs, rubs, or gallops Abdomen: Soft, +tender to palpation superior to umbilicus x resolved, no guarding or rigidity, ND +BS x 4 Extremities: No edema Skin: Warm, no rash, negative turgor. Discharge Data Allergies Allergy/AdvReac Type Severity Reaction Status Date / Time penicillin V Allergy Intermediate RASH Verified 04/25/25 01:15 Unclassified Drugs Allergy Unknown HX; C-DIFF Uncoded 04/25/25 01:15 COLITIS, MUST AVOID ANTIBIOTICS Consultations 08/05/25 16:12 ED Decision to Admit Stat 08/08/25 12:16 Consult Gastroenterology Routine Hospital Course (1) Acute upper abdominal pain: (2) Acute pancreatitis: (3) Portal vein thrombosis: (4) Intellectual disability: Plan This is a 50 yr old M who has a significant PMH of portal vein thrombus on eliquis, Cirrhosis, HLD, hx of cdiff, Intellectual disability, tobacco use disorder, splenomegaly, IBS with diarrhea, obesity, celiac disease, IGG kappa gammopathy who presents to ED 2/2 abdominal pain. #Acute upper abdominal pain #Acute pancreatitis #Possible Viral GI illness, with sapovirus Pt with abd pain x 4-5 days, poor intake, nausea, some vomiting and loose stool no known sick contacts, Admitting C. difficile test negative, stool PCR positive for Sapa virus Lipase elevated at presentation. Patient reports improvement in abdominal pain, but came back w/ low fiber diet, put on full liq diet. GI evaled appreciate recs. Pt tolerated low fiber diet well, no pain today. Provide supportive care for viral gastroenteritis. Lipase has normalized. #Hx of PVT #Cirrhosis follows [facility] hepatology continue eliquis ct a/p with persistent clot #Igg kappa gammopathy found in work up of cirrhosis had Heme consult On the day of presentation, but cancelled due to pain will need appt rescheduled at discharge #Intellectual disability supportive care #DVT ppx: Eliquis FULL CODE PCP: Dylan archer Dispo: admit to medical Patient reports resolution of his abdominal pain and is tolerating low fiber diet well. Patient is hemodynamically stable and would like to go home. Patient is being discharged with following instructions at the point of discharge: Follow-up with your primary care physician within a week time and likely you will need labs CBC/CMP/magnesium/phosphorus. Continue with low fiber diet for next few days and then you can resume back to your normal consistency diet. Follow-up with hematology upon discharge, coordinate with your PCP office to set up the referral. Taking medications as prescribed. Please make sure that you are able to get your medications today by calling your pharmacy before you leave the hospital so that your treatment continuity is not broken. Home Health Attestation I certify that this patient is under my care and that I, or a physicians engineer second assistant working with me, had a face to-face encounter that meets the home health [id number] encounter requirements with this patient. The encounter with the patient was in whole, or in part, for the following medical condition, which is the primary reason for home health care (list medical condition): I certify that, based on my findings, the following services are medically necessary home health services: My clinical findings support the need for the above services because: Further, I certify that my clinical findings support that this patient is homebound (i.e. absences from home require considerable and taxing effort and are for medical reasons or yazdanism services or infrequently or of short duration when for other reasons) because: Certification for Home Health Services: Based on the above findings, I certify that this patient is confined to the home and needs intermittent usp care, physical therapy and/or speech therapy or continues to need occupational therapy. The patient is under my care, and I have initiated the establishment of the plan of care. This patient will be followed by a physician who will periodically review the plan of care. Total Time Total Time Spent Total Time Spent (In Minutes): 35 Discharge Plan Discharge Items Patient Disposition: Home - Self-Care Reason For Visit: PANCREATITIS Discharge Diagnosis: #Acute upper abdominal pain #Acute pancreatitis #Possible Viral GI illness, with sapovirus Condition on Discharge: Fair Activity: Resume your previous activity Non-emergency contact: Primary Care Provider Call non-emergency contact if: you have any medication questions Follow-up/Referrals: Dylan Archer DO [Primary Care Provider] - Diet: Low Fiber Diet Texture: Easy to Chew Addtl Attending Provider Instructions: Follow-up with your primary care physician within a week time and likely you will need labs CBC/CMP/magnesium/phosphorus. Continue with low fiber diet for next few days and then you can resume back to your normal consistency diet. Follow-up with hematology upon discharge, coordinate with your PCP office to set up the referral. Taking medications as prescribed. Please make sure that you are able to get your medications today by calling your pharmacy before you leave the hospital so that your treatment continuity is not broken. Pending Studies at Discharge: No Stand-Alone Forms: My [facility], Smoking Cessation Medications and DC Order Prescriptions: Continued oxycodone 5 mg tablet 5 mg PO Q6H PRN (Reason: Severe Pain (Scale Score 7-10)) Eliquis 5 mg tablet 5 mg PO Q12H Qty: 70 0RF pantoprazole 40 mg Tablet,Delayed Release (Dr/Ec) 40 mg PO BID Qty: 60 0RF Discharge Orders: Discharge Order (Routine); Ordered 08/09/25 Ordered By: Carola Hernandez Admission Data Admit Date/Time: 08/05/25 16:14 Attending Provider: Carola Hernandez Admit Provider: Rickie Nixon Primary Care Provider: Dylan Archer Other Providers: Rickie Nixon; Nick Ivey I
[2025-08-09 14:16] VITALS: PULSE 52
== END 2025-08-09 14:49 | disposition home or self-care (01) | DRG 439 ==
LOC: ED 15:12 → SUATTDRO 16:14 → EDINP 16:14 → 3N 20:20